=== PATIENT | male | born 1960 | race Caucasian/White ===

== ENCOUNTER 2020-07-08 14:59 | Inpatient (IN) | payer MEDICARE, OTHER ==
[~2020-07-08 14:59] MED LIST: Iopamidol-370 76% 500 ML 1 ML ONE
[2020-07-08 15:41] LABS: #Basophils 0.1 thou/uL (0.0-0.2); #Eosinphils 0.5 thou/uL (0.0-0.7); #Lymphocytes 1.9 thou/uL (1.20-3.40); #Monocytes 0.8 thou/uL (0.11-0.59); #Neutrophils 9.1 thou/uL (1.40-6.50); %Basophils 0.5 % (0.0-1.0); %Lymphocytes 15.6 % (21.0-51.0); %Monocytes 6.7 % (0.0-10.0); %Neutrophils 73.3 % (42.0-75.0); Hemoglobin 14.2 g/dL (14.0-18.0); Mean Corpuscular HGB CONC 33.5 g/dL (32.0-36.0); Mean Corpuscular Hemoglobin 29.5 pg (27.0-31.0); Mean Corpuscular Volume 87.9 fL (78.0-98.0); Mean Platelet Volume 6.3 fL (7.4-10.4); Platelet Count 374 thou/uL (130-400); RBC Distribution Width 13.6 % (11.5-14.5); Red Blood Cell (RBC) Count 4.83 mill/uL (4.70-6.10); White Blood Cell (WBC) Count 12.4 thou/uL (4.8-10.8)
--- NOTE | 2020-07-08 15:53 | RAD ---
EXAM: Single view of the chest HISTORY: Abdominal pain and rib pain COMPARISON: 12/25/2014 FINDINGS: Single view of the chest shows a normal sized cardiomediastinal silhouette. 2 right hilar masses are seen. The largest measures 7.2 cm in size. No pleural effusion is seen. No acute osseous abnormality. IMPRESSION: New right hilar lung masses. A CT of the chest with contrast is recommended for further e valuation.
[2020-07-08 16:01] LABS: ALT (SGPT) 9 U/L (8-55); AST (SGOT) 21 U/L (5-34); Alkaline Phosphatase 103 U/L (40-110); Anion Gap 16 mmol/L (10-20); BUN (Urea Nitrogen) 12 mg/dL (8.4-25.7); Bilirubin, Total 0.2 mg/dL (0.2-1.2); Calc. Creatinine Clearance 0 mL/min (70-130); Calcium 9.3 mg/dL (7.8-10.44); Carbon Dioxide 23 mmol/L (23-31); Chloride 101 mmol/L (98-107); Estimated GFR-MDRD 84; Globulin 3.8 g/dL (2.4-3.5); Glucose 112 mg/dL (80-115); Lipase 745 U/L (8-78); Potassium 3.6 mmol/L (3.5-5.1); Protein, Total 7.8 g/dL (5.8-8.1); Sodium 136 mmol/L (136-145)
[2020-07-08] MEDS ORDERED: Mag-Al 1200 mg/1200 mg/30 ML UDCUP ONE (16:03)
[2020-07-08] MEDS ORDERED: Lidocaine Viscous Sol 2% 15 ml UD Cup ONE (16:03)
[2020-07-08] MEDS ORDERED: Morphine 4 MG/ML VIAL ONE (16:19)
[2020-07-08] MEDS ORDERED: Lorazepam 2 MG/ML VIAL ONE (16:31)
--- NOTE | 2020-07-08 17:51 | CT ---
Exam: Chest CT with contrast Abdomen CT with contrast Pelvic CT with contrast HISTORY: Abdominal pain. Correlation: None COMPARISON: None FINDINGS: Chest CT: Mediastinum: Enlarged precarinal lymph node measuring 2.9 x 3.2 cm, enlarged subcarinal lymph node me asuring 5.5 x 1.8 cm, posterior mediastinal/left paraspinal lymph node measuring 2.6 x 2.4 cm, enlarged right hilar lymph node measuring 2.9 x 4.8 cm. Additional scattered enlarged lymph nodes are noted. Aorta: Normal caliber thoracic aorta. No periaortic fat stranding. There is mild mass effect and narr owing of the proximal descending thoracic aorta due to a forementioned lymphadenopathy. Atherosclerosis and mild luminal narrowing of the infrarenal abdominal aorta. Heart: Normal heart size. No significant pericardial fluid Trachea and central bronchi: Trachea and left main bronchus are patent. There is narrowing of the rig ht central bronchus and main bronchus secondary to a forementioned lymphadenopathy. Pleural spaces: No pleural effusion Right lung: Multiple solid nodules/masses in the right lung. Largest mass is in the superior segment of the right lower lobe 3.1 x 1.4 cm. Additional smaller nodules are also noted in the superior segment of the right lower lobe. There is extension of right hilar lymphadenopathy/mass into the medi al right upper lobe lung parenchyma. There is minimal consolidation in the right upper lobe. Minimal emphysematous change in the right lung apex. Left lung:No suspicious masses or nodules. Minimal emphysematous change in the left lung apex. Pneumothorax: None Abdomen CT: Gallbladder: Unremarkable Portal vein: Patent Liver: Appropriate enhancement. Spleen: Appropriate enhancement Pancreas: Appropriate enhancement Adrenal glands: Enlarged right adrenal gland measuring 1.5 x 2.7 cm. Enlarged left adrenal gland trinh uring 1.9 x 2.5 cm. Lymphadenopathy: No gastrohepatic, retrocrural or periportal lymphadenopathy Kidneys: Symmetric enhancement. No obstructive uropathy. Hypodensities in the left and right renal co rtex compatible with bilateral renal cortical cysts. Mesentery: Scattered nonspecific nonenlarged mesenteric lymph nodes. No free air or free fluid. Alimentary canal: Limited evaluation by the lack of oral contrast. Decompressed stomach. Multiple non distended small bowel loops. Normal ileocecal junction. Normal caliber appendix. Scattered fecal material in a nondistended, nondilated colon. There is diverticulosis. No diverticulitis. Pelvis CT: Limited evaluation of the pelvis due to beam attenuation artifact from a left hip prosthesis. No pelv ic mass, lymphadenopathy, free air or free fluid. Presacral fat is preserved. Osseous structures:No lytic or blastic lesions in the osseous structures. Previous lumbar surgery is identified. IMPRESSION: 1. Extensive lymphadenopathy involving the right hilum and mediastinum. 2. Multiple lung nodules in the right lower lobe. Correlate for primary neoplasm of the lung parenchy ma with metastases to the right hilum and mediastinum. There is abrupt truncation of the right mainstem bronchus and right central bronchus. Consider bronchoscopy for pathologic characterization 3. Bilateral adrenal masses, worrisome for metastases.. Transcribed Date/Time: 07/08/2020 6:03 PM
--- NOTE | 2020-07-08 18:32 | PDOC.HHP ---
Hospitalist HPI - History of Present Illness Abdominal pain x 2 months History of Present Illness: PCP: NONE The patient is a 60-year-old male with a past medical history of duodenal ulcers , peripheral neuropathy and anxiety that presents to the ER via EMS for the above complaint. The patient reports left upper quadrant abdominal pain for the past 2 months. Describes pain as "a hot pancreas", intermittent, exacerbated with oral food intake at times and relieved with laying on his left side with his knees flexed. Denies any known trauma or abdominal surgery. Denies nausea, vomiting, diarrhea and constipation. Denies heart palpitations, shortness of breath. He does not take NSAIDs or steroids chronically. He does not abuse alcohol. Denies any change in color to his stools or urine. EMS was called. Upon arrival, the patient had stable vital signs with normal blood pressure, normal pulse, normal respirations, afebrile. Patient was taken to the ER. ED Course: VITAL SIGNS WedJul 08, 2020 15:02 SHIVAM Seals Tori BP: 132/78, Pulse: 92, Resp: 15, Temp: 98.3 (Oral), Pain: 7, O2 sat: 97 on ( Room Air), Time: 07/08/2020 15:02. VITAL SIGNS WedJul 08, 2020 16:07 SHIVAM Marcum Kassidy BP: 118/75, Pulse: 86, Resp: 20, Temp: 98.4 (Oral), Pain: 7, O2 sat: 99 on ( Room Air), Time: 07/08/2020 16:07. VITAL SIGNS WedJul 08, 2020 17:47 SHIVAM Seals Tori BP: 144/92, Pulse: 87, Resp: 17, O2 sat: 96 on (Room Air), Time: 07/08/2020 17: 47. Lipase 745, with unremarkable LFTs. WBCs 12.4. CT abdomen showed extensive lymphadenopathy to the right hilum and mediastinum, multiple lung nodules to the right lower lobe. Recommend bronchoscopy. Chest x -ray was positive for new right hilar lung mass. Recommend CT chest with contrast. Positive for by lateral adrenal masses, worrisome for metastasis. Right adrenal mass measures 1.5 x 2.7 cm. Left adrenal mass measures 1.9 x 2.5 cm. Medication administration: LORazepam injection 1 mg IV Push Given 16:40 07/08/2020 sodium chloride 0.9 % intravenous 1000 mL IV Fluid Infusion Given 16:31 2019 morphine intravenous 4 mg IV Push Given 16:24 07/08/2020 GI COCKTAIL - WHITE 40 mL Oral Given 16:06 07/08/2020 Hospitalist ROS - Review of Systems Constitutional: denies: fever, chills Respiratory: denies: cough, shortness of breath, hemoptysis, SOB with excertion Cardiovascular: denies: chest pain, palpitations, edema Gastrointestinal: reports: abdominal pain (Left upper quadrant). denies: nausea , vomiting, diarrhea, constipation, melena, hematochezia Genitourinary: denies: dysuria, frequency, hematuria Neurological: denies: weakness, change in speech, confusion All other systems reviewed; all pertinent +/- noted in HPI/Subj - Medication Medications: gabapentin CAPSULE : Strength - 300 mg : ORAL Patient Dose: 300 mg Oral every 8 hours PRN. HYDROcodone-acetaminophen TABLET : Strength - 10 mg-325 mg : ORAL Patient Dose: 10/325 mg Oral every 6 hours PRN. Allergies: NKDA Hospitalist History - Past Medical History Source: patient, RN notes reviewed Other Medical History: MEDICAL HISTORY DUODENAL ULCER. Peripheral neuropathy MALE SURGICAL HISTORY LEFT HIP REPLACEMENT, Surgical history of hernia repair, Surgical history of orthopedic surgery, LEFT KNEE X2, RIGHT SHOULDER, BACK SX L4,L5, S1. NECK FUSION. PSYCHIATRIC HISTORY Psychiatric history includes, anxiety. SOCIAL HISTORY Patient currently uses tobacco, Patient smokes 1/2 packs per day, Patient drinks socially, once a month, Patient denies drug use. Patient lives at home with his mother, near [place], [place]. Ambulates without assistive devices. FAMILY HISTORY: Contributory for cancer, grandmother, noncontributory for cardiac disease. - Exam General Appearance: NAD, awake alert Eye: anicteric sclera ENT: normocephalic atraumatic Neck: supple, symmetric Heart: RRR, no murmur, no gallops, no rubs, normal peripheral pulses Respiratory: CTAB, no wheezes, no ronchi, normal chest expansion, no tachypnea Gastrointestinal: soft, non-distended, normal bowel sounds, no guarding, no rigidity, tender to palpation (Mildly tender) Extremities: no cyanosis, no edema Skin: no rashes Neurological: normal sensation to touch, no weakness, no focal deficits Musculoskeletal: normal tone, normal strength Psychiatric: A&O x 3, flat affect Hospitalist Results - Labs Result Diagrams: 07/09/20 04:56 07/09/20 04:56 Lab results: WBC 12.4 thou/uL (4.8-10.8) H 07/08/20 15:32 Hgb 14.2 g/dL (14.0-18.0) 07/08/20 15:32 Hct 42.4 % (42.0-52.0) 07/08/20 15:32 MCV 87.9 fL (78.0-98.0) 07/08/20 15:32 Plt Count 374 thou/uL (130-400) 07/08/20 15:32 Neutrophils % 73.3 % (42.0-75.0) 07/08/20 15:32 Sodium 136 mmol/L (136-145) 07/08/20 15:32 Potassium 3.6 mmol/L (3.5-5.1) 07/08/20 15:32 Chloride 101 mmol/L (98-107) 07/08/20 15:32 Carbon Dioxide 23 mmol/L (23-31) 07/08/20 15:32 BUN 12 mg/dL (8.4-25.7) 07/08/20 15:32 Creatinine 0.91 mg/dL (0.7-1.3) 07/08/20 15:32 Glucose 112 mg/dL (80-115) 07/08/20 15:32 Calcium 9.3 mg/dL (7.8-10.44) 07/08/20 15:32 Total Bilirubin 0.2 mg/dL (0.2-1.2) 07/08/20 15:32 AST 21 U/L (5-34) 07/08/20 15:32 ALT 9 U/L (8-55) 07/08/20 15:32 Alkaline Phosphatase 103 U/L (40-110) 07/08/20 15:32 Troponin I 0.012 ng/mL (< 0.028) 07/08/20 15:32 Serum Total Protein 7.8 g/dL (5.8-8.1) 07/08/20 15:32 Albumin 4.0 g/dL (3.4-4.8) 07/08/20 15:32 Lipase 745 U/L (8-78) H 07/08/20 15:32 - EKG Interpretation EK lead EKG interpreted by Emergency Department Physician at time of study, 12 lead EKG shows normal sinus rhythm, Rate (beats per minute): 94, with no ectopics, Interpretation:, Conduction with, incomplete right bundle branch block , ST segments normal, T waves normal, [place] normal, Clinical impression:, non- specific EKG. - Radiology Interpretation Chest x-ray Status: report reviewed by me Additional Comment: IMPRESSION: New right hilar lung masses. A CT of the chest with contrast is recommended for further e valuation CT scan - abdomen Status: report reviewed by me Hospitalist H&P A/P - Problem (1) Acute pancreatitis Code(s): K85.90 - ACUTE PANCREATITIS WITHOUT NECROSIS OR INFECTION, UNSP Status: Acute Assessment and Plan: Admit the patient to medical floor, inpatient status. Expected length of stay greater than 2 midnights.Patient presented normal blood pressure, normal pulse, normal respirations, afebrile. Chest x-ray positive for new right hilar lung mass. CT chest/abdomen/pelvis showed extensive lymphadenopathy involving the right hilum and mediastinum. Multiple lung nodules in the right lower lobe. Correlate for primary neoplasm of the lung parenchyma with metastasis to the right lung hilum and mediastinum. Bilateral adrenal masses, worrisome for metastasis. Recommend bronchoscopy for pathological characterization. Lipase 745, unremarkable LFTs. CBC 12.4. UA unremarkable. Patient received 1 L normal saline, GI cocktail, morphine and Ativan in ER. Will continue IV fluid resuscitation. No concern for pancreatic necrosis or abscess. Will leave n.p.o., consult GI. Repeat labs in the a.m and get fasting lipid profile. Check right upper quadrant abdominal ultrasound for obstruction. Continue as needed Zofran, morphine. Start Protonix IV push daily. (2) Mass of right lung Code(s): R91.8 - OTHER NONSPECIFIC ABNORMAL FINDING OF LUNG FIELD Status: Acute Assessment and Plan: Patient is aware of CT scanning and chest x-ray findings. Discussed n.p.o. status. Discussed consultation of pulmonology for possible bronchoscopy tomorrow. (3) Tobacco abuse Code(s): Z72.0 - TOBACCO USE Status: Chronic Assessment and Plan: Patient reports half pack per day history. Unwilling to quit. NRT therapy. Air Defence Officer on tobacco cessation. (4) Peripheral neuropathy Code(s): G62.9 - POLYNEUROPATHY, UNSPECIFIED Status: Chronic Assessment and Plan: Takes gabapentin at home. Will restart patient's home medication. - Plan Plan: Consult physical therapy. Protonix for GI prophylaxis. SCDs for DVT prophylaxis Full code. Discussed case with Dr. Santizo.
[2020-07-08] MEDS ORDERED: Ondansetron PF 4 MG/2 ML Vial IVP PRN (18:57)
[2020-07-08] MEDS ORDERED: Acetaminophen 325 MG TAB PO PRN (18:57)
[2020-07-08] MEDS ORDERED: Senokot S 8.6-50 MG TAB PO PRN (18:57)
[2020-07-08] MEDS ORDERED: Acetaminophen 650 MG Suppository PR PRN (18:57)
[2020-07-08 20:41] LABS: Bacteria/HPF None Seen HPF (None Seen); Bilirubin Negative (Negative); Blood, Urine Negative (Negative); Clarity Clear (Clear); Glucose, Urine (Dipstick) Normal (Negative); Ketone, Urine 10 mg/dL (Negative); Leukocyte Negative Leu/uL (Negative); Nitrite Negative (Negative); Protein, Urine (Dipstick) Negative (Neg-Trace); RBC/HPF 0-3 HPF (0-3); Squamous Epithelial None Seen HPF (0-3); Urobilinogen Normal mg/dL (Less than 2); WBC/HPF 0-3 HPF (0-3); pH, Urine 7.5 (5.0-9.0)
[2020-07-08 20:43] LABS: Specific Gravity, Urine 1.046 (1.002-1.036)
[2020-07-08] MEDS: Morphine 4 MG/ML VIAL SLOW IVP PRN (20:57)
[2020-07-08] MEDS: Pantoprazole 40 MG VIAL IVP SCH (20:59)
[2020-07-08] MEDS: Sodium Chloride 0.9% 1,000 ML IV SCH (20:59)
[2020-07-08] MEDS: Nicotine 14 MG PATCH TD SCH (21:02)
[2020-07-08 21:11] VITALS: BMI 20.7
[2020-07-08] MEDS ORDERED: Fentanyl 100 MCG/2 ML VIAL SLOW IVP PRN (23:53)
[2020-07-09] MEDS: Morphine 4 MG/ML VIAL SLOW IVP PRN ×2 (00:45→05:29)
[2020-07-09] MEDS: Sodium Chloride 0.9% 1,000 ML IV SCH ×3 (03:51→17:04)
[2020-07-09] MEDS ORDERED: Morphine 4 MG/ML VIAL SLOW IVP SCH (04:15)
[2020-07-09 05:18] LABS: #Basophils 0.1 thou/uL (0.0-0.2); #Eosinphils 0.4 thou/uL (0.0-0.7); #Monocytes 0.8 thou/uL (0.11-0.59); #Neutrophils 6.7 thou/uL (1.40-6.50); %Basophils 0.5 % (0.0-1.0); %Eosinophils 3.5 % (0.0-10.0); %Lymphocytes 27.1 % (21.0-51.0); %Monocytes 7.7 % (0.0-10.0); %Neutrophils 61.2 % (42.0-75.0); Hemoglobin 12.7 g/dL (14.0-18.0); Mean Corpuscular HGB CONC 33.2 g/dL (32.0-36.0); Mean Corpuscular Volume 87.3 fL (78.0-98.0); Mean Platelet Volume 6.5 fL (7.4-10.4); Platelet Count 345 thou/uL (130-400); RBC Distribution Width 13.8 % (11.5-14.5); Red Blood Cell (RBC) Count 4.38 mill/uL (4.70-6.10); White Blood Cell (WBC) Count 10.9 thou/uL (4.8-10.8)
[2020-07-09] MEDS: Ondansetron ODT 4 MG TAB PO PRN (05:35)
[2020-07-09 05:43] LABS: ALT (SGPT) 7 U/L (8-55); AST (SGOT) 19 U/L (5-34); Albumin 3.4 g/dL (3.4-4.8); Alkaline Phosphatase 86 U/L (40-110); Anion Gap 15 mmol/L (10-20); BUN (Urea Nitrogen) 10 mg/dL (8.4-25.7); Bilirubin, Total 0.3 mg/dL (0.2-1.2); Calc. Creatinine Clearance 96 mL/min (70-130); Calcium 8.3 mg/dL (7.8-10.44); Carbon Dioxide 18 mmol/L (23-31); Cardiac Risk 7.2 (Less than 4.5); Chloride 106 mmol/L (98-107); Cholesterol 224 mg/dl (< 200 Desired); Estimated GFR-MDRD Greater than 90; Globulin 3.2 g/dL (2.4-3.5); Glucose 87 mg/dL (80-115); HDL Cholesterol 31 mg/dL (>60 Neg Risk); LDL Cholesterol, Calculated 176 mg/dL; Lipase 630 U/L (8-78); Potassium 3.7 mmol/L (3.5-5.1); Protein, Total 6.6 g/dL (5.8-8.1); Sodium 135 mmol/L (136-145); Triglycerides 87 mg/dL (Less than 150)
--- NOTE | 2020-07-09 07:49 | ULT ---
ULTRASOUND ABDOMEN LIMITED: (RIGHT UPPER QUADRANT) DATE: 07/09/2020 HISTORY: 60-year-old male with "acute pancreatitis" FINDINGS: Gallbladder:Distended. No gallstones identified. No mural thickening. No pericholecystic fluid. Common duct: 7 mm. Liver:Normal size and echogenicity. Pancreas:Approximately 3 x 2 x 2 cm moderately hypoechoic solid mass at proximal pancreatic body/neck . No pancreatic ductal dilation. Right kidney:No hydronephrosis. 2 cm cortical cyst. Right adrenal: 4 x 2 x 2.5 cm solid mass. IMPRESSION: 1) small solid pancreatic mass suspicious for pancreatic neoplasm. 2) right adrenal mass.
[2020-07-09] MEDS: Fentanyl 100 MCG/2 ML VIAL SLOW IVP SCH ×2 (09:11→09:44)
[2020-07-09] MEDS ORDERED: Fentanyl 100 MCG/2 ML VIAL SLOW IVP PRN (09:28)
[2020-07-09] MEDS: Promethazine HCl 25 MG in Sodium Chloride 0.9% 50 ML IVPB PRN (10:04)
[2020-07-09] MEDS ORDERED: diphenhydrAMINE 25 MG CAP PO PRN (10:19)
[2020-07-09] MEDS ORDERED: Promethazine HCl 25 MG/ML VIAL IM PRN (10:19)
[2020-07-09] MEDS ORDERED: Zolpidem Tartrate 5 MG TAB PO PRN (10:19)
[2020-07-09] MEDS ORDERED: diphenhydrAMINE 50 MG/ML VIAL IM/IV PRN (10:19)
[2020-07-09] MEDS ORDERED: Lidocaine 4% PF 5 ML AMP NEB SCH (10:30)
[2020-07-09] MEDS ORDERED: Fentanyl 100 MCG/2 ML VIAL SLOW IVP SCH (10:30)
--- NOTE | 2020-07-09 11:11 | CON ---
DATE OF CONSULTATION: 07/09/2020 CONSULTING PHYSICIAN: [facility]. REASON FOR CONSULTATION: Lung mass. HISTORY OF PRESENT ILLNESS: Mr. Nunez was in pain and did not want to cooperate with any type of history. What I have is obtained from reading the chart. He is 60 years old, presented to the emergency room last night with abdominal pain. It has been present for the last two months. He has a grossly elevated lipase above 600. He is currently being treated for pancreatitis. He has a mass in the head of the pancreas. Additionally, he has a lung mass, extensive hilar and mediastinal lymphadenopathy, periaortic lymphadenopathy, and bilateral adrenal metastasis. PAST MEDICAL HISTORY: No previous history of cancer. Does have history of peptic ulcer disease and peripheral neuropathy. PAST SURGICAL HISTORY: He had a left hip replacement, hernia repair, left knee surgery, right shoulder surgery, back surgery, and L4, L5, S1 fusion. PSYCHIATRIC HISTORY: Remarkable for anxiety. SOCIAL HISTORY: Most of his life, he has smoked one pack per day. He has been trying to cut back. He is down to about a half pack per day. Does not use illicit drugs. He lives in [place]. 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 FAMILY MEDICAL HISTORY: Remarkable for cancer in his grandmother. REVIEW OF SYSTEMS: He has had some weight loss. He has had extensive abdominal pain. No fever, chills, hemoptysis, hematemesis, melena, hematochezia, hematuria, or dysuria. PHYSICAL EXAMINATION: VITAL SIGNS: Temperature 98.1, pulse 92, respirations 17, O2 saturations 98% on room air, and blood pressure 126/62. GENERAL: He appears in severe pain. He is writhing about the bed. HEENT: Pupils reactive. Sclerae anicteric. Oropharynx clear. NECK: No adenopathy or JVD. LUNGS: Decreased air entry on the right. Clear on the left. ABDOMEN: Some mid epigastric tenderness on deep palpation. EXTREMITIES: No clubbing, cyanosis, or edema. LABORATORY DATA: Sodium 135, potassium 3.7, chloride 106, CO2 of 18, BUN 10, creatinine 0.7, and glucose 87. Cholesterol level 224. Lipase 630. White blood cell count 10.9, hematocrit 38.2, and platelet count 345. I reviewed a CT in detail. He has a circumferential mass in the right hilum region, which may be invading the right mainstem bronchus area. He has subcarinal, right paratracheal, and periaortic lymphadenopathy. ASSESSMENT: 1. Pancreatic mass, likely cancerous-not sure primary or metastatic. 2. Extensive tumor burden in lungs-primary lung cancer versus metastatic pancreatic cancer. 3. Adrenal metastasis. 4. Pancreatitis. RECOMMENDATION: He will need a bronchoscopy at some point. However, his pain is so severe. I do not think that I can put him through a procedure at this time. I have tentatively scheduled him for Wednesday, which was the earliest I could get him on. The pain service has been consulted to deal with his pain issues. In all likelihood, this is stage IV cancer, and his prognosis is very poor. COVID test has been sent, which will need to come back negative before he is allowed to go to the operating room. Job ID: [id number]
[2020-07-09 12:31] LABS: SARS-CoV-2 MS2 Positive; SARS-CoV-2 N Gene Negative; SARS-CoV-2 S Gene Negative; SARS-CoV-2 by NAA Not Detected (NotDetected); SARS-CoV-2 orf1ab Negative
[2020-07-09] MEDS: fentaNYL Citrate/PF 2,000 MCG in Sodium Chloride 0.9% 60 ML IV PRN (12:38)
[2020-07-09] MEDS ORDERED: Magnevist 469MG/ML 20 ML VIAL ONE (13:35)
[2020-07-09] MEDS: Ketorolac Tromethamine 30 MG/ML VIAL IVP SCH ×2 (14:26→19:37)
[2020-07-09] MEDS ORDERED: Naloxone HCl 0.4 mg/ml Vial IV PRN (14:46)
--- NOTE | 2020-07-09 18:56 | PDOC.HOSPP ---
- Subjective Encounter Date: 07/09/20 Encounter Time: 09:00 Subjective: Patient seen and examined for abdominal pain with elevated lipase. Pain uncontrolled -08/17. Mild nausea without any vomiting. No fever reported. - Objective Vital Signs & Weight: Vital Signs (12 hours) Temp Pulse Resp BP Pulse Ox 07/09/20 17:25 98.3 F 81 20 134/75 97 07/09/20 11:53 97.8 F 89 18 142/79 H 97 07/09/20 09:00 92 126/62 98 Weight Admit Weight 144 lb 8 oz Weight 144 lb 8 oz Result Diagrams: 07/09/20 04:56 07/09/20 04:56 Radiology Reviewed by me: Yes (CTextensive lymphadenopathy) Hospitalist ROS - Review of Systems Respiratory: denies: cough, dry, shortness of breath, hemoptysis, SOB with excertion, pleuritic pain, sputum, wheezing, other Cardiovascular: denies: chest pain, palpitations, orthopnea, paroxysmal noc. dyspnea, edema, light headedness, other - Medication Medications: Active Medications Generic Name Dose Route Start Last Admin Trade Name Freq PRN Reason Stop Dose Admin Sodium Chloride 1,000 mls @ 150 mls/hr 07/08/20 19:00 07/09/20 17:04 Normal Saline 0.9% IV Not Given .Q6H40M DEVANTE Promethazine HCl 25 mg/ Sodium 51 mls @ 102 mls/hr 07/09/20 08:28 07/09/20 10 :04 Chloride IVPB 51 mls Q6H PRN Administration Nausea Fentanyl Citrate 2,000 mcg/ 100 mls @ 0 mls/hr 07/09/20 10:19 07/09/20 12:38 Sodium Chloride IV 100 mls INF PRN Administration Pain As Directed Ketorolac Tromethamine 30 mg 07/09/20 12:00 07/09/20 14:26 Toradol IVP 07/11/20 06:01 30 mg Q6HR DEVANTE Administration Nicotine 14 mg 07/08/20 21:00 07/08/20 21:02 Nicoderm Patch TD 14 mg Q24HR DEVANTE Administration Ondansetron HCl 4 mg 07/08/20 18:57 07/09/20 05:35 Zofran Odt PO 4 mg Q6H PRN Administration Nausea/Vomiting Pantoprazole Sodium 40 mg 07/08/20 21:00 07/08/20 20:59 Protonix IVP 40 mg HS DEVANTE Administration - Exam General Appearance: ill appearing Neck: supple, no JVD Heart: RRR, no gallops, no rubs, normal peripheral pulses Respiratory: no wheezes, no rales, no ronchi, normal chest expansion Gastrointestinal: soft, no guarding, no rigidity, tender to palpation ( Generalized), voluntary guarding Extremities: no cyanosis, no clubbing, no edema Extremities - other findings: No calf tenderness Neurological: no new deficit Psychiatric: normal affect, A&O x 3 Hosp A/P - Plan DVT proph w/SCDs Abdominal pain with elevated lipase/acute pancreatitis Lung nodules with extensive lymphadenopathy Bilateral adrenal masses ? Metastasis Ongoing tobacco abuse Dehydration Hyponatremia Chronic pain syndrome Plan: Pain is uncontrolled despite morphine 4 mg every 4 hourly. 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 Change IV fluid to D5 with potassium. Recheck labs including lipase in a.m. Await GI and pulmonary input. N.p.o. Right upper quadrant ultrasound noted.
[2020-07-09] MEDS: D5 1/2 NS w/20 mEq KCL 1,000 ML IV SCH (19:41)
[2020-07-09] MEDS: Pantoprazole 40 MG VIAL IVP SCH (20:23)
[2020-07-09] MEDS: Nicotine 14 MG PATCH TD SCH (20:23)
[2020-07-09] MEDS: Ondansetron PF 4 MG/2 ML Vial IVP PRN (22:56)
--- NOTE | 2020-07-09 23:30 | CON ---
DATE OF CONSULTATION: 07/09/2020 REASON: Abdominal pain, abnormal CT. HISTORY OF PRESENT ILLNESS: Mr. Nunez is a 60-year-old male, who presented to the ER with chief complaint of abdominal pain. It was difficult to obtain a straight history from the patient as he primarily requesting more pain medication and could not focus on much of anything else. Reportedly, he complains having two month history of intermittent abdominal pain that has become much worse three days prior to admission. The pain is diffuse but mostly in the upper abdominal area. He did report having some nausea but without any actual vomiting. There is no change in bowel function. He reports losing approximately 5 pounds over the last 2 weeks, although he continues to eat fairly normally at home up until three days ago. He denies any fever or chills. There is no jaundice or dark urine. On admission, CT performed showed a fairly extensive adenopathy in the right hilum and mediastinum in addition to multiple lung nodules. His CT of the abdomen did not show any inflammatory change of the pancreas. However, ultrasound performed showed focal mass lesion in the pancreas. His lipase was elevated to 700 in the emergency room. He denies any significant alcohol intake. He denies having had previous pancreatitis. No family history of pancreatitis. PAST MEDICAL HISTORY: 1. Chronic pain syndrome on chronic pain medication. 2. Chronic back pain. 3. Status post multilevel back fusions. 4. Status post right shoulder surgery and left hip replacement. 5. Neuropathy. MEDICATIONS: At home include: 1. Gabapentin. 2. Hydrocodone/Tylenol. ALLERGIES: NONE. SOCIAL HISTORY: The patient does smoke a pack a day. He rarely drinks alcohol. Denies any illicit drug use. The patient lives in [place]. FAMILY HISTORY: Negative for any known GI problem, liver disease, or GI malignancy. REVIEW OF SYSTEMS: Ten-point review of systems did not show any other pertinent positives or negatives. PHYSICAL EXAMINATION: VITAL SIGNS: Temperature is 97.8, blood pressure 142/79, pulse of 89. GENERAL: He is alert, in no apparent distress. HEENT: Exam shows anicteric sclerae. Oropharynx is clear. NECK: Supple. No adenopathy. CV: Shows normal S1, S2. Regular rate and rhythm. CHEST: Shows breath sounds. ABDOMEN: Soft. No appreciable tenderness to deep palpation. No tympany. No distention. He has active bowel sounds. EXTREMITIES: Shows no edema. LABORATORY DATA: WBC is 10.9, hemoglobin 12.7, platelet count of 345. Electrolytes within normal range. Bilirubin 0.3, AST 19, ALT 7, alkaline phosphatase 86, lipase 745 yesterday, 630 today. Triglyceride is 87. COVID-19 PCR is negative. Chest, abdominal, and pelvic CT performed yesterday showed extensive adenopathy involving the mediastinum and right hilum and multiple lung nodules in the right lobe. He also has bilateral adrenal masses. Pancreas appeared normal. Abdominal ultrasound showed a 3 x 2 cm hypoechoic mass lesion in the proximal pancreas. Gallbladder is distended without gallstone. Common bile duct measures . ASSESSMENT: A 60-year-old male presents primarily with upper abdominal pain over the last two months that has worsened in the last 3 to 4 days. Lipase was elevated to over 700 on admission, but CT did not show any findings of pancreatitis. However, he does have a solid lesion suggested on abdominal ultrasound. Pancreatic neoplasm needs to be excluded. In relation to his extensive hilar adenopathy, mediastinal adenopathy and multiple right lung nodules, he could also have a primary lung malignancy although metastatic pancreatic cancer is a remote possibility. RECOMMENDATIONS: 1. From GI standpoint, we will order MRI to define the pancreatic lesion and to assess for any inflammatory changes. 2. Will keep n.p.o. for now. 3. Continue pain control with FOREPART ROUNDER pump. 4. Further recommendation to follow pending above findings. Job ID: [id number]
[2020-07-10] MEDS: Ketorolac Tromethamine 30 MG/ML VIAL IVP SCH ×5 (00:57→23:34)
[2020-07-10] MEDS: D5 1/2 NS w/20 mEq KCL 1,000 ML IV SCH ×3 (03:57→21:01)
[2020-07-10] MEDS: fentaNYL Citrate/PF 2,000 MCG in Sodium Chloride 0.9% 60 ML IV PRN (05:20)
[2020-07-10] MEDS: Ondansetron ODT 4 MG TAB PO PRN (05:56)
[2020-07-10 06:20] LABS: #Eosinphils 0.4 thou/uL (0.0-0.7); #Lymphocytes 2.6 thou/uL (1.20-3.40); #Monocytes 0.7 thou/uL (0.11-0.59); #Neutrophils 3.6 thou/uL (1.40-6.50); %Basophils 0.3 % (0.0-1.0); %Eosinophils 5.1 % (0.0-10.0); %Lymphocytes 35.9 % (21.0-51.0); %Monocytes 9.2 % (0.0-10.0); %Neutrophils 49.5 % (42.0-75.0); Hemoglobin 12.1 g/dL (14.0-18.0); Mean Corpuscular HGB CONC 33.6 g/dL (32.0-36.0); Mean Corpuscular Hemoglobin 29.8 pg (27.0-31.0); Mean Corpuscular Volume 88.9 fL (78.0-98.0); Mean Platelet Volume 6.5 fL (7.4-10.4); Platelet Count 313 thou/uL (130-400); RBC Distribution Width 13.8 % (11.5-14.5); Red Blood Cell (RBC) Count 4.04 mill/uL (4.70-6.10); White Blood Cell (WBC) Count 7.3 thou/uL (4.8-10.8)
[2020-07-10 06:43] LABS: ALT (SGPT) Less than 7 U/L (8-55); AST (SGOT) 20 U/L (5-34); Albumin 3.2 g/dL (3.4-4.8); Alkaline Phosphatase 82 U/L (40-110); Anion Gap 11 mmol/L (10-20); BUN (Urea Nitrogen) 11 mg/dL (8.4-25.7); Bilirubin, Total 0.2 mg/dL (0.2-1.2); Calc. Creatinine Clearance 93 mL/min (70-130); Calcium 8.2 mg/dL (7.8-10.44); Carbon Dioxide 21 mmol/L (23-31); Chloride 105 mmol/L (98-107); Estimated GFR-MDRD Greater than 90; Glucose 101 mg/dL (80-115); Lipase 270 U/L (8-78); Magnesium 2.1 mg/dL (1.6-2.6); Potassium 4.2 mmol/L (3.5-5.1); Protein, Total 6.2 g/dL (5.8-8.1); Sodium 133 mmol/L (136-145)
--- NOTE | 2020-07-10 09:34 | PRG ---
DATE OF SERVICE: 07/10/2020 SUBJECTIVE: The patient is doing better in terms of pain relief. He says the [employer]ION ORGANISER pump is helped. He is scheduled for an MRI of his abdomen later today to further evaluate his pancreatic lesion. OBJECTIVE: VITAL SIGNS: His temperature 98.5, pulse 56, respirations 16, O2 saturation 97%, blood pressure 121/72. HEENT: Unremarkable. NECK: No adenopathy or JVD. LUNGS: Clear. CARDIAC: S1 and S2, regular. ABDOMEN: Somewhat tender to palpation in the mid epigastric region. EXTREMITIES: No clubbing, cyanosis, or edema. LABORATORY DATA: Sodium 133, potassium 4.2, chloride 105, CO2 of 21, BUN 11, creatinine 0.7, glucose 101. White blood cell count 7.3, hematocrit 35.9, and platelet count 313. ASSESSMENT: Metastatic cancer-primary source undetermined. Lung versus pancreas. PLAN: Tentatively scheduled for bronchoscopy Wednesday. Discussed the procedure with the patient today. I included the risks and benefits. He agreed to proceed. Job ID: [id number]
--- NOTE | 2020-07-10 11:33 | MRI ---
MRI ABDOMEN WITH AND WITHOUT CONTRAST: HISTORY: Pancreatic mass. COMPARISON: CT 07/08/2020. FINDINGS: At the pancreatic body-tail junction is a poorly enhancing mass measuring 1.9 cm in size which extend s outside the dorsal aspect of the parenchyma abutting the splenic/portal venous confluence. This [place] s no involvement of the superior mesenteric artery or celiac trunk. There is only mild extrinsic mas s effect without definite base in the splenic vein/portal venous confluence. There is mild atrophy o f the pancreatic tail distal to this with mildly enlarged main pancreatic duct of 3-4 mm. At the ventral aspect of the pancreatic head separate from the common bile duct is a poorly enhancing 11 mm mass which is contained within the pancreatic parenchyma. Small aortocaval lymph node measures 8 mm in short axis. Abnormal bilateral adrenal masses concernin g for metastatic disease. Simple cysts superior pole left kidney and interpolar right kidney. Extensive atherosclerotic plaque of the aorta with possible high-grade narrowing/occlusion of the rig ht common iliac arteries with distal reconstitution. The spleen is unremarkable. No abnormal enhanc ing hepatic mass, although the entirety of the hepatic parenchyma is not interrogated on this pancrea tic protocol exam. No hydronephrosis. IMPRESSION: 1. Two separate pancreatic masses, the 1st of the pancreatic body extending outside the dorsal aspec t of the pancreatic parenchymal abutting and mild extrinsic mass effect upon the splenic venous/andreas l confluence without definite invasion appreciated. This mass measures up to 1.8 cm in size with mil d atrophy of the pancreatic tail with low-grade dilatation of the distal pancreatic duct. The second is a ventral mass which is contained within the pancreatic parenchyma measuring up to 11 mm. 2. Bilateral adrenal metastatic disease. 3. Mildly prominent aortocaval lymph nodes, although measures 8 mm in short axis. POS: AH
--- NOTE | 2020-07-10 18:19 | PRG ---
DATE OF SERVICE: 07/10/2020 SUBJECTIVE: Mr. Nunez states his belly feels a better. He is still on a [employer] pump that he has chronic back pain. He has had no bowel movement. He has had no vomiting. Pulmonary plans on bronchoscopy on Wednesday. MRCP showed 2 separate pancreatic lesions, extending outside the dorsal aspect of the pancreas parenchyma, abutting with some mass effect in the splenic venous portal confluence without definite invasion, 7.8 cm in size with pancreatic atrophy in the tail proximal to this and dilation of the duct in that area. There is also a ventral mass, 11 mm. There are also a large portacaval nodes. An ultrasound yesterday showed a right adrenal mass as well. PHYSICAL EXAMINATION: VITAL SIGNS: Temperature is 97, pulse 79, blood pressure is 153/73. In's and out's: It is noted he has been voiding all day along. LUNGS: Clear. HEART: regular rate and rhythm without clicks or murmurs. ABDOMEN: Nontender. No palpable supra and umbilical nodes were noted. The abdomen is scaphoid. I do not palpate a signifcantly enlarged spleen or abdominal masses or inguinal nodes. LABORATORY DATA: White count 7.3 and hemoglobin is 12.1. Sodium 133, potassium 4.2, BUN and creatinine 11 and 0.76, albumin 3.3, protein 6.2, and lipase 270. ASSESSMENT: 1. Multiple masses in the chest with severe hilar adenopathy. There is a mass in the kidney and there are 2 little masses in the pancreas. Although the primary could be any of these, it would be odd to see such bulky adenopathy in the chest from the pancreatic lesion as small as the one noted. I would favor this as a primary lung or primary renal with 2 separate lesions in the pancreas one wonders about renal primary as this can metastasize to the pancreas at times, although the biggest nodes are in the chest. I agree with the plan for the bronchoscopy. Hopefully this can lead us to a diagnosis and if not that may be biopsy of the renal lesion or hilar masses. The pancreas lesions would be the most difficult to biopsy as we do not have the technology here at this facility to do that, in which the smallest of the masses is encountered. We will follow along with you. 2. With regard to pancreatitis, it seems to be improving. We will start a full liquid diet. Job ID: [id number]
--- NOTE | 2020-07-10 19:45 | PDOC.HOSPP ---
- Subjective Encounter Date: 07/10/20 Encounter Time: 12:00 Subjective: Patient seen and examined for acute pancreatitis with suspected malignancy. Abdominal pain improving. Pain control with TEST CENTER ADMINISTRATOR. Mild nausea. Denies any other complaints. - Objective Vital Signs & Weight: Vital Signs (12 hours) Temp Pulse Resp BP Pulse Ox 07/10/20 16:12 97.9 F 97 18 120/80 93 L 07/10/20 15:55 98.5 F 67 16 153/73 H 98 07/10/20 11:17 97.9 F 62 16 132/75 97 Weight Admit Weight 144 lb 8 oz Weight 144 lb 8 oz I&O: 07/09/20 07/10/20 07/11/20 06:59 06:59 06:59 Intake Total 1500 Balance 1500 Result Diagrams: 07/10/20 05:28 07/10/20 05:28 Additional Labs: Laboratory Tests 07/08/20 07/09/20 07/10/20 20:20 04:56 05:28 Lipase 630 H 270 H COVID-19 PCR Not Detected Hospitalist ROS - Review of Systems Respiratory: denies: cough, dry, shortness of breath, hemoptysis, SOB with excertion, pleuritic pain, sputum, wheezing, other Cardiovascular: denies: chest pain, palpitations, orthopnea, paroxysmal noc. dyspnea, edema, light headedness, other - Medication Medications: Active Medications Generic Name Dose Route Start Last Admin Trade Name Freq PRN Reason Stop Dose Admin Promethazine HCl 25 mg/ Sodium 51 mls @ 102 mls/hr 07/09/20 08:28 07/09/20 10 :04 Chloride IVPB 51 mls Q6H PRN Administration Nausea Fentanyl Citrate 2,000 mcg/ 100 mls @ 0 mls/hr 07/09/20 10:19 07/10/20 05:20 Sodium Chloride IV 100 mls INF PRN Administration Pain As Directed Potassium Chloride/Dextrose/Sod Cl 1,000 mls @ 125 mls/hr 07/09/20 19:30 12/28 13:07 D5 1/2 Ns W/20 Meq Kcl IV 1,000 mls .Q8H DEVANTE Administration Ketorolac Tromethamine 30 mg 07/09/20 12:00 07/10/20 18:44 Toradol IVP 07/11/20 06:01 30 mg Q6HR DEVANTE Administration Nicotine 14 mg 07/08/20 21:00 07/09/20 20:23 Nicoderm Patch TD 14 mg Q24HR DEVANTE Administration Ondansetron HCl 4 mg 07/08/20 18:57 07/10/20 05:56 Zofran Odt PO 4 mg Q6H PRN Administration Nausea/Vomiting Ondansetron HCl 4 mg 07/09/20 10:19 07/09/20 22:56 Zofran IVP 4 mg Q6H PRN Administration Nausea/Vomiting Pantoprazole Sodium 40 mg 07/08/20 21:00 07/09/20 20:23 Protonix IVP 40 mg HS DEVANTE Administration - Exam General Appearance: NAD Neck: supple, no JVD Heart: RRR, no gallops Respiratory: no wheezes, no ronchi Gastrointestinal: soft, non-distended, no guarding, no rigidity, tender to palpation (Generalized) Extremities: no cyanosis Psychiatric: normal affect, A&O x 3 Hosp A/P - Plan DVT proph w/lovenox, DVT proph w/SCDs Abdominal pain with elevated lipase/acute pancreatitis Lung nodules with extensive lymphadenopathy Bilateral adrenal masses ? Metastasis Ongoing tobacco abuse Dehydration Hyponatremia Chronic pain syndrome Plan: 07/10 Continue TEST CENTER ADMINISTRATOR for pain control. Continue IV fluid with dextrose. Clear liquid diet. Lipase improving. Recheck labs in a.m. Bronchoscopy planned for Wednesday. Change PPI to po. Continue other medications as above. 07/09 Pain is uncontrolled despite morphine 4 mg every 4 hourly. We will start him on fentanyl TEST CENTER ADMINISTRATOR. Change IV fluid to D5 with potassium. Recheck labs including lipase in a.m. Await GI and pulmonary input. N.p.o. Right upper quadrant ultrasound noted.
[2020-07-10] MEDS ORDERED: Enoxaparin Sodium 40 MG/0.4 ML SYRINGE SC SCH (21:00)
[2020-07-10] MEDS: Nicotine 14 MG PATCH TD SCH (21:04)
[2020-07-11] MEDS: fentaNYL Citrate/PF 2,000 MCG in Sodium Chloride 0.9% 60 ML IV PRN ×2 (02:07→21:58)
[2020-07-11] MEDS: D5 1/2 NS w/20 mEq KCL 1,000 ML IV SCH (04:57)
[2020-07-11] MEDS: Ketorolac Tromethamine 30 MG/ML VIAL IVP SCH (05:03)
[2020-07-11 06:07] LABS: #Basophils 0.1 thou/uL (0.0-0.2); #Eosinphils 0.4 thou/uL (0.0-0.7); #Lymphocytes 2.2 thou/uL (1.20-3.40); #Monocytes 0.6 thou/uL (0.11-0.59); #Neutrophils 4.1 thou/uL (1.40-6.50); %Basophils 0.8 % (0.0-1.0); %Eosinophils 4.9 % (0.0-10.0); %Monocytes 8.7 % (0.0-10.0); %Neutrophils 55.6 % (42.0-75.0); Hemoglobin 12.2 g/dL (14.0-18.0); Mean Corpuscular HGB CONC 33.1 g/dL (32.0-36.0); Mean Corpuscular Hemoglobin 29.7 pg (27.0-31.0); Mean Corpuscular Volume 89.8 fL (78.0-98.0); Mean Platelet Volume 6.4 fL (7.4-10.4); Platelet Count 293 thou/uL (130-400); RBC Distribution Width 13.6 % (11.5-14.5); Red Blood Cell (RBC) Count 4.11 mill/uL (4.70-6.10); White Blood Cell (WBC) Count 7.4 thou/uL (4.8-10.8)
[2020-07-11 06:25] LABS: ALT (SGPT) 7 U/L (8-55); AST (SGOT) 19 U/L (5-34); Albumin 3.4 g/dL (3.4-4.8); Alkaline Phosphatase 77 U/L (40-110); Anion Gap 10 mmol/L (10-20); BUN (Urea Nitrogen) 6 mg/dL (8.4-25.7); Bilirubin, Total 0.2 mg/dL (0.2-1.2); Calc. Creatinine Clearance 100 mL/min (70-130); Calcium 8.2 mg/dL (7.8-10.44); Carbon Dioxide 23 mmol/L (23-31); Chloride 106 mmol/L (98-107); Estimated GFR-MDRD Greater than 90; Glucose 105 mg/dL (80-115); Lipase 491 U/L (8-78); Protein, Total 6.4 g/dL (5.8-8.1); Sodium 135 mmol/L (136-145)
[2020-07-11] MEDS ORDERED: Potassium Phosphate 15 MMOL in Sodium Chloride 0.9% 250 ML 250 ML IVPB SCH (07:00)
[2020-07-11] MEDS ORDERED: D5W-AA 4.25% with LYTES 1,000 ML BAG IV SCH (08:15)
[2020-07-11] MEDS: Pantoprazole 40 MG VIAL IVP SCH (08:37)
--- NOTE | 2020-07-11 09:22 | PRG ---
DATE OF SERVICE: 07/11/2020 SUBJECTIVE: The patient is doing okay except when tries to the eat and he develops abdominal pain. OBJECTIVE: VITAL SIGNS: On exam, temperature 98.3, pulse is 70, respirations 17, O2 saturation 98%, and blood pressure 137/68. HEENT: Unremarkable. NECK: No adenopathy or JVD. LUNGS: Decreased air entry on the right. CARDIOVASCULAR: S1 and S2. Regular. ABDOMEN: Soft. EXTREMITIES: No edema. LABORATORY DATA: White blood cell count 7.4, hematocrit 36.9, and platelet count 293. Sodium 135, potassium 4, BUN 6, creatinine 0.7, and glucose 105. Lipase 491. ASSESSMENT: 1. Pancreatitis. 2. 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 PLAN: Bronchoscopy tomorrow. I have discussed informed consent issues with the patient and he agrees to proceed. Job ID: [id number]
[2020-07-11] MEDS: AA 4.25 %/CALCIUM/LYTES/D5W (PPN) 2,000 ML BAG IV SCH (10:09)
[2020-07-11] MEDS: Ondansetron PF 4 MG/2 ML Vial IVP PRN ×2 (14:42→20:42)
--- NOTE | 2020-07-11 15:07 | PDOC.HOSPP ---
- Subjective Encounter Date: 07/11/20 Encounter Time: 07:45 Subjective: Patient seen and examined for abdominal pain with lung mass. Unable to tolerate clear liquid diet. Pain control with HEALTH ADMINISTRATION TEACHER. Mild nausea. - Objective Vital Signs & Weight: Vital Signs (12 hours) Temp Pulse Resp BP BP Pulse Ox 07/11/20 08:00 98 07/11/20 07:04 98.3 F 70 17 137/68 98 07/11/20 04:00 98.5 F 67 18 144/70 H 99 Weight Admit Weight 144 lb 8 oz Weight 144 lb 8 oz I&O: 07/10/20 07/11/20 07/12/20 06:59 06:59 06:59 Intake Total 1500 1979 Balance 1500 1979 Result Diagrams: 07/11/20 05:39 07/11/20 05:39 Additional Labs: Laboratory Tests 07/11/20 07/11/20 05:39 05:39 Phosphorus 2.0 L Lipase 491 H Hospitalist ROS - Review of Systems Respiratory: denies: cough, dry, shortness of breath, hemoptysis, SOB with excertion, pleuritic pain, sputum, wheezing, other Cardiovascular: denies: chest pain, palpitations, orthopnea, paroxysmal noc. dyspnea, edema, light headedness, other - Medication Medications: Active Medications Generic Name Dose Route Start Last Admin Trade Name Freq PRN Reason Stop Dose Admin Amino Ac/Electrol/Dextrose/Calcium 2,000 ml 07/11/20 09:15 07/11/20 10:09 Clinimix E 4.25%-5% Solution IV 2,000 ml INF DEVANTE Administration Promethazine HCl 25 mg/ Sodium 51 mls @ 102 mls/hr 07/09/20 08:28 07/09/20 10 :04 Chloride IVPB 51 mls Q6H PRN Administration Nausea Fentanyl Citrate 2,000 mcg/ 100 mls @ 0 mls/hr 07/09/20 10:19 07/11/20 02:07 Sodium Chloride IV 100 mls INF PRN Administration Pain As Directed Nicotine 14 mg 07/08/20 21:00 07/10/20 21:04 Nicoderm Patch TD 14 mg Q24HR DEVANTE Administration Ondansetron HCl 4 mg 07/08/20 18:57 07/10/20 05:56 Zofran Odt PO 4 mg Q6H PRN Administration Nausea/Vomiting Ondansetron HCl 4 mg 07/09/20 10:19 07/11/20 14:42 Zofran IVP 4 mg Q6H PRN Administration Nausea/Vomiting Pantoprazole Sodium 40 mg 07/11/20 09:00 07/11/20 08:37 Protonix IVP 40 mg DAILY DEVANTE Administration - Exam General Appearance: NAD Neck: supple, no JVD Heart: RRR, no gallops Respiratory: no wheezes, no ronchi Gastrointestinal: soft, no guarding, no rigidity, tender to palpation ( Epigastric region) Extremities: no cyanosis, no clubbing Hosp A/P - Plan DVT proph w/SCDs Abdominal pain with elevated lipase/acute pancreatitis Lung nodules with extensive lymphadenopathy Bilateral adrenal masses ? Metastasis Ongoing tobacco abuse Dehydration Hyponatremia Hypophosphatemia Chronic pain syndrome Plan: 07/11 Continue IV fluids. Continue clear liquid diet as tolerated. Npo past midnight. Bronchoscopy tomorrow. Continue HEALTH ADMINISTRATION TEACHER for pain control. Replace phosphorus. Recheck labs including lipase in a.m. 07/10 Continue HEALTH ADMINISTRATION TEACHER for pain control. Continue IV fluid with dextrose. Clear liquid diet. Lipase improving. Recheck labs in a.m. Bronchoscopy planned for Wednesday. Change PPI to po. Continue other medications as above. 07/09 Pain is uncontrolled despite morphine 4 mg every 4 hourly. We will start him on fentanyl HEALTH ADMINISTRATION TEACHER. Change IV fluid to D5 with potassium. Recheck labs including lipase in a.m. Await GI and pulmonary input. N.p.o. Right upper quadrant ultrasound noted.
[2020-07-11] MEDS ORDERED: diphenhydrAMINE 25 MG CAP PO PRN (18:21)
[2020-07-11] MEDS ORDERED: Melatonin 3 MG TAB PO PRN (18:22)
--- NOTE | 2020-07-11 19:50 | PRG ---
DATE OF SERVICE: 07/11/2020 REASON FOR CONSULTATION: Acute pancreatitis, abnormal GI imaging showing pancreatic mass. SUBJECTIVE: Today, the patient states that with the initiation of a liquid diet, he has been having increased abdominal pain with ingestion of any food stuffs thus far. He also complains of increased nausea, but has also been placed on a [employer] pump in the meantime. With the use of a [employer] FARM[employer] pump outside of eating episodes, he states his pain is managed. Otherwise he denies any vomiting, fevers, chills, hematemesis, melena, hematochezia, dysphagia, or odynophagia. OBJECTIVE: VITAL SIGNS: Temperature 98.3, pulse 70, blood pressure 137/68, respiratory rate 17, saturating 98% on room air. GENERAL: The patient was lying in bed, in no acute distress. Alert and oriented x4. CARDIOVASCULAR: Regular rate and rhythm. RESPIRATORY: Clear to auscultation bilaterally. ABDOMEN: Hypoactive bowel sounds. Soft, mildly distended. Tenderness to palpation in the epigastric region. LABORATORY DATA: CBC with a white blood cell count of 7.4, hemoglobin 12.2, hematocrit 36.9, platelets 293. Chemistry with a sodium of 135, potassium 4, chloride 106, CO2 of 23, BUN 6, creatinine 0.71, glucose 105. AST 19, ALT 7, alkaline phosphatase 77, total bilirubin 0.2. Lipase 491. IMAGING DATA: No current GI imaging is available for review. ASSESSMENT AND PLAN: 1. Probable metastatic disease with lymphadenopathy. The patient is presenting with imaging showing multiple masses in the chest and severe hilar lymphadenopathy. Additional imaging of the abdomen including an MRI obtained on July 09, 2020, showed the presence of a poorly enhancing mass measuring 1.9 cm in size, which extends outside the dorsal aspect of the pancreatic body/tail. There is also a poorly enhancing 11 mm mass along the ventral aspect of the pancreatic head, separate from the common bile duct and contained within the pancreatic parenchyma. At this point, the patient is presenting with imaging showing multiple solid nodules/masses in the right lung, hilar lymphadenopathy as well as 2 additional masses within the pancreas consistent with metastatic disease with unknown primary. The patient is scheduled for bronchoscopy tomorrow, hopefully for tissue sample to better guide further management. 2. Acute pancreatitis. The patient is presenting with increased midepigastric abdominal pain and elevated lipase consistent with acute pancreatitis. At this time, it is unclear if this is due to current tobacco use or the presence of pancreatic masses/metastatic disease contributing to this particular pancreatitis. At this time, I would favor the latter contributing to the pancreatitis at which point treating the underlying malignancy would be most beneficial. RECOMMENDATIONS: 1. Agree with proceeding with bronchoscopy tomorrow for further evaluation and tissue diagnosis of metastatic disease. 2. Pain control per primary team. 3. Would continue patient on a liquid diet for now given increased abdominal pain with administration today. 4. Continue with IV fluid administration. We will continue to follow. Please call with any questions. Job ID: [id number]
[2020-07-11] MEDS: Nicotine 14 MG PATCH TD SCH (20:32)
[2020-07-12 05:41] LABS: #Eosinphils 0.4 thou/uL (0.0-0.7); #Monocytes 0.8 thou/uL (0.11-0.59); #Neutrophils 5.9 thou/uL (1.40-6.50); %Basophils 0.4 % (0.0-1.0); %Eosinophils 4.8 % (0.0-10.0); %Lymphocytes 21.6 % (21.0-51.0); %Monocytes 8.4 % (0.0-10.0); %Neutrophils 64.7 % (42.0-75.0); Hemoglobin 13.1 g/dL (14.0-18.0); Mean Corpuscular HGB CONC 32.7 g/dL (32.0-36.0); Mean Corpuscular Hemoglobin 28.9 pg (27.0-31.0); Mean Corpuscular Volume 88.1 fL (78.0-98.0); Mean Platelet Volume 6.6 fL (7.4-10.4); Platelet Count 326 thou/uL (130-400); RBC Distribution Width 13.6 % (11.5-14.5); Red Blood Cell (RBC) Count 4.53 mill/uL (4.70-6.10); White Blood Cell (WBC) Count 9.1 thou/uL (4.8-10.8)
[2020-07-12 05:59] LABS: Phosphorus 2.9 mg/dL (2.3-4.7)
[2020-07-12 06:01] LABS: ALT (SGPT) 7 U/L (8-55); AST (SGOT) 17 U/L (5-34); Albumin 3.5 g/dL (3.4-4.8); Alkaline Phosphatase 81 U/L (40-110); Anion Gap 9 mmol/L (10-20); BUN (Urea Nitrogen) 11 mg/dL (8.4-25.7); Bilirubin, Total 0.3 mg/dL (0.2-1.2); Calc. Creatinine Clearance 96 mL/min (70-130); Calcium 8.8 mg/dL (7.8-10.44); Carbon Dioxide 26 mmol/L (23-31); Chloride 104 mmol/L (98-107); Estimated GFR-MDRD Greater than 90; Globulin 3.4 g/dL (2.4-3.5); Glucose 131 mg/dL (80-115); Lipase 727 U/L (8-78); Magnesium 2.2 mg/dL (1.6-2.6); Protein, Total 6.9 g/dL (5.8-8.1); Sodium 135 mmol/L (136-145)
[2020-07-12] MEDS: AA 4.25 %/CALCIUM/LYTES/D5W (PPN) 2,000 ML BAG IV SCH (06:22)
[2020-07-12] MEDS ORDERED: Fentanyl 100 MCG/2 ML VIAL ONE ×3 (08:45→09:32)
[2020-07-12] MEDS ORDERED: Lidocaine 1% PF 5 ML VIAL ONE (09:00)
[2020-07-12] MEDS ORDERED: Rocuronium Bromide 10 MG/ML (10ML VIAL) ONE (09:00)
[2020-07-12] MEDS ORDERED: PROPOFOL 200 MG/20 ML VIAL ONE (09:00)
[2020-07-12] MEDS ORDERED: Dexamethasone 20 MG/5 ML VIAL ONE (09:00)
[2020-07-12] MEDS ORDERED: Ondansetron PF 4 MG/2 ML Vial ONE (09:00)
[2020-07-12] MEDS ORDERED: HYDROmorphone 2 MG/ML VIAL ONE (09:35)
[2020-07-12] MEDS ORDERED: Midazolam HCl 2 mg/2 ml Vial ONE (10:28)
[2020-07-12] MEDS ORDERED: PACU-Morphine 4MG/ML VIAL SLOW IVP PRN (10:37)
[2020-07-12] MEDS ORDERED: Promethazine HCl 25 MG/ML VIAL SLOW IVP PRN (10:37)
[2020-07-12] MEDS ORDERED: Promethazine HCl 25 MG/ML VIAL IM PRN (10:37)
[2020-07-12] MEDS ORDERED: HYDROmorphone 2 MG/ML VIAL SLOW IVP PRN (10:37)
[2020-07-12] MEDS ORDERED: Meperidine HCl/PF 25 MG/ML VIAL SLOW IVP PRN (10:37)
--- NOTE | 2020-07-12 11:27 | OP ---
DATE OF PROCEDURE: 07/12/2020 PROCEDURE PERFORMED: Fiberoptic bronchoscopy with biopsy. PREOPERATIVE DIAGNOSES: Lung mass, mediastinal lymphadenopathy. POSTOPERATIVE DIAGNOSES: Lung mass, mediastinal lymphadenopathy. ANESTHESIA: General endotracheal. DESCRIPTION OF PROCEDURE: Informed consent was obtained prior to the procedure. The patient was brought to the operating room. Time-out was taken prior to the procedure. The patient was intubated by Anesthesia with an 8.5 endotracheal tube at 24 cm at the lip. An Olympus bronchoscope was placed through an adapter into the patient's endotracheal tube while he was on mechanical ventilation. The trachea, left mainstem bronchus, left upper lobe, and left lower lobe were clear. 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 This totally obliterated the orifice to the right upper lobe. I could get past the tumor in the right mainstem bronchus and the scope was easily passed into the right middle lobe and right lower lobe, which were clear. I would estimate that the tumor was obliterating the right mainstem bronchus about 30%, 100% obliteration of the right upper lobe. A series of endobronchial biopsies and endobronchial brushings were obtained. Endobronchial washings were also sent. Some epinephrine was placed on the tumor prior to procedure to limit bleeding. The procedure was tolerated well. The patient was extubated and sent to recovery room in stable condition. Job ID: [id number]
[2020-07-12] MEDS: Pantoprazole 40 MG VIAL IVP SCH (11:50)
--- NOTE | 2020-07-12 14:43 | PRG ---
DATE OF SERVICE: 07/12/2020 REASON FOR CONSULTATION: Acute pancreatitis, abnormal GI imaging showing the pancreatic mass. SUBJECTIVE: Earlier today, the patient underwent bronchoscopy with the discovery of a mass within the right lung obliterating the right upper lobe and partially occluding the right mainstem bronchus. Multiple biopsies were taken for further evaluation. In the postprocedure setting, the patient stated that he was doing good, but after returning to the room, attempted to eat something and had increase in his abdominal pain. Thus far, he states that he has been having to use the GUEST EXPERIENCE SPECIALIST pump frequently to "just ahead of the pain." Otherwise, he denies any vomiting, fevers, chills, hematemesis, melena, hematochezia, dysphagia, or odynophagia. OBJECTIVE: VITAL SIGNS: Temperature 98.8, pulse 86, blood pressure 116/39, respiratory rate 18, and saturating 97% on room air. GENERAL: The patient was lying in bed, in no acute distress. Alert and oriented x4. CARDIOVASCULAR: Regular rate and rhythm. RESPIRATORY: Clear to auscultation bilaterally. ABDOMEN: Hypoactive bowel sounds. Soft, nontender, nondistended. EXTREMITIES: No cyanosis, clubbing, or edema. LABORATORY DATA: CBC with a white blood cell count of 9.1, hemoglobin 13.1, hematocrit 39.9, and platelets 326. Chemistry with a sodium of 135, potassium 4, chloride 104, CO2 of 26, BUN 11, creatinine 0.74, glucose 131, AST 17, ALT 7, alkaline phosphatase 81, total bilirubin 0.3. IMAGING DATA: No current GI imaging is available for review. ASSESSMENT AND PLAN: 1. Probable metastatic disease with lymphadenopathy. The patient is presenting with imaging showing multiple masses in the chest, severely hilar lymphadenopathy in addition to 2 poorly-enhancing masses within the pancreas measuring 1.9 and 1.1 cm in diameter. The patient underwent bronchoscopy earlier today, which showed the presence of a large tumor within the right lung with biopsy still pending at this time. At this time, it is unclear if this is from a lung primary or pancreatic primary, but based on the location of these lesions and the sizes of these lesions, a lung primary was favored. 2. Acute pancreatitis. The patient initially presented with increased midepigastric abdominal pain and elevated lipase consistent with acute pancreatitis. He has thus far responded moderately well to IV fluid administration and pain control, although he seems to require increasing amounts of pain medications via the G[employer]PERIENCE SPECIALIST pump. On physical exam today, his pain is out of proportion to exam where he is completely nontender on palpation of his abdomen, raising concern for possible mesenteric ischemia versus secondary gain. At this time, I would favor the latter given his demeanor so far and the imaging obtained thus far not indicative of ischemia in the abdomen. However, with this increasing abdominal pain, especially with food intake, worsening pancreatitis cannot be ruled out nor can complications of pancreatitis including pseudocyst or necrosis. Recommendations;. a. Would follow up on the biopsy results from the bronchoscopy earlier today with further management guided by pathology report. b. Pain control per primary team. c. Would make the patient n.p.o. today and re-evaluate the patient in 24 hours for advancing his diet. d. If the patient continues to have abdominal pain, despite n.p.o. status, we would consider repeating the CT of the abdomen and pelvis for evaluation of possible necrosis versus pseudocyst formation. Job ID: [id number]
[2020-07-12] MEDS: Nicotine 14 MG PATCH TD SCH (20:00)
[2020-07-12] MEDS: Ondansetron PF 4 MG/2 ML Vial IVP PRN (20:08)
--- NOTE | 2020-07-12 23:26 | PDOC.HOSPP ---
- Subjective Encounter Date: 07/12/20 Encounter Time: 12:45 Subjective: Seen and examined for acute pancreatitis with lung mass. Underwent bronchoscopy today. Pain control with ORTHODONTIST SMALL BUSINESS OWNER. Denies any nausea, vomiting, cough or hemoptysis. Abdominal pain unchanged. - Objective Vital Signs & Weight: Vital Signs (12 hours) Temp Pulse Resp BP BP Pulse Ox 07/12/20 21:57 96 07/12/20 19:35 98.7 F 71 16 164/71 H 96 07/12/20 18:20 98.4 F 89 16 162/84 H 100 07/12/20 17:33 98.7 F 93 16 136/77 100 07/12/20 16:55 83 16 153/79 H 07/12/20 14:45 98.7 F 72 18 116/67 100 07/12/20 13:45 73 135/66 98 07/12/20 13:15 78 128/74 97 07/12/20 12:45 85 134/69 98 07/12/20 12:15 90 136/74 100 07/12/20 11:45 98.8 F 86 18 116/39 L 97 Weight Admit Weight 144 lb 8 oz Weight 144 lb 8 oz I&O: 07/11/20 07/12/20 07/13/20 06:59 06:59 06:59 Intake Total 1979 1250 1300 Output Total 7000 Balance 1979 1250 -5700 Result Diagrams: 07/12/20 05:15 07/12/20 05:15 Additional Labs: Laboratory Tests 07/12/20 07/12/20 05:15 05:15 Phosphorus 2.9 Lipase 727 H Hospitalist ROS - Review of Systems Respiratory: denies: cough, dry, shortness of breath, hemoptysis, SOB with excertion, pleuritic pain, sputum, wheezing, other - Medication Medications: Active Medications Generic Name Dose Route Start Last Admin Trade Name Freq PRN Reason Stop Dose Admin Amino Ac/Electrol/Dextrose/Calcium 2,000 ml 07/11/20 09:15 07/12/20 06:22 Clinimix E 4.25%-5% Solution IV 2,000 ml INF DEVANTE Administration Promethazine HCl 25 mg/ Sodium 51 mls @ 102 mls/hr 07/09/20 08:28 07/09/20 10 :04 Chloride IVPB 51 mls Q6H PRN Administration Nausea Fentanyl Citrate 2,000 mcg/ 100 mls @ 0 mls/hr 07/09/20 10:19 07/11/20 21:58 Sodium Chloride IV 100 mls INF PRN Administration Pain As Directed Melatonin 3 mg 07/11/20 18:22 07/11/20 22:01 Melatonin PO 3 mg HS PRN Administration Insomnia Nicotine 14 mg 07/08/20 21:00 07/12/20 20:00 Nicoderm Patch TD 14 mg Q24HR DEVANTE Administration Ondansetron HCl 4 mg 07/08/20 18:57 07/10/20 05:56 Zofran Odt PO 4 mg Q6H PRN Administration Nausea/Vomiting Ondansetron HCl 4 mg 07/09/20 10:19 07/12/20 20:08 Zofran IVP 4 mg Q6H PRN Administration Nausea/Vomiting Pantoprazole Sodium 40 mg 07/11/20 09:00 07/12/20 11:50 Protonix IVP 40 mg DAILY DEVANTE Administration - Exam General Appearance: NAD Neck: supple, no JVD Heart: RRR, no gallops Respiratory: no wheezes, no ronchi Gastrointestinal: soft, non-tender, normal bowel sounds Extremities: no cyanosis Hosp A/P - Plan DVT proph w/SCDs Abdominal pain with elevated lipase/acute pancreatitis Lung nodules with extensive lymphadenopathy Bilateral adrenal masses ? Metastasis Ongoing tobacco abuse Dehydration Hyponatremia Hypophosphatemia Chronic pain syndrome Plan: 07/12 S/p bronchoscopy. Await biopsy. New PPN. Continue PPI. Unable to tolerate po due to significant pain. Continue ORTHODONTIST [employer] BUSINESS OWNER For pain control. Continue IV fluids. A.m. labs including lipase. 07/11 Continue IV fluids. Continue clear liquid diet as tolerated. Npo past midnight. Bronchoscopy tomorrow. Continue ORTHODONTIST SMALL BUSINESS OWNER for pain control. Replace phosphorus. Recheck labs including lipase in a.m. 07/10 Continue ORTHODONTIST SMALL BUSINESS OWNER for pain control. Continue IV fluid with dextrose. Clear liquid diet. Lipase improving. Recheck labs in a.m. Bronchoscopy planned for Wednesday. Change PPI to po. Continue other medications as above. 07/09 Pain is uncontrolled despite morphine 4 mg every 4 hourly. We will start him on fentanyl ORTHODONTIST [employer] BUSINESS OWNER. Change IV fluid to D5 with potassium. Recheck labs including lipase in a.m. Await GI and pulmonary input. N.p.o. Right upper quadrant ultrasound noted.
[2020-07-13] MEDS: Ondansetron PF 4 MG/2 ML Vial IVP PRN ×2 (01:08→22:23)
[2020-07-13 05:51] LABS: #Eosinphils 0.1 thou/uL (0.0-0.7); #Lymphocytes 2.1 thou/uL (1.20-3.40); #Monocytes 0.9 thou/uL (0.11-0.59); #Neutrophils 7.6 thou/uL (1.40-6.50); %Basophils 0.2 % (0.0-1.0); %Eosinophils 1.3 % (0.0-10.0); %Lymphocytes 19.3 % (21.0-51.0); %Monocytes 8.7 % (0.0-10.0); %Neutrophils 70.6 % (42.0-75.0); Hemoglobin 12.2 g/dL (14.0-18.0); Mean Corpuscular HGB CONC 31.9 g/dL (32.0-36.0); Mean Corpuscular Hemoglobin 28.2 pg (27.0-31.0); Mean Corpuscular Volume 88.4 fL (78.0-98.0); Mean Platelet Volume 6.6 fL (7.4-10.4); Platelet Count 307 thou/uL (130-400); RBC Distribution Width 13.7 % (11.5-14.5); Red Blood Cell (RBC) Count 4.33 mill/uL (4.70-6.10); White Blood Cell (WBC) Count 10.7 thou/uL (4.8-10.8)
[2020-07-13 06:19] LABS: ALT (SGPT) Less than 7 U/L (8-55); AST (SGOT) 16 U/L (5-34); Albumin 3.5 g/dL (3.4-4.8); Alkaline Phosphatase 77 U/L (40-110); Anion Gap 11 mmol/L (10-20); BUN (Urea Nitrogen) 17 mg/dL (8.4-25.7); Bilirubin, Total 0.2 mg/dL (0.2-1.2); Calc. Creatinine Clearance 91 mL/min (70-130); Calcium 8.9 mg/dL (7.8-10.44); Carbon Dioxide 27 mmol/L (23-31); Chloride 102 mmol/L (98-107); Estimated GFR-MDRD Greater than 90; Globulin 3.4 g/dL (2.4-3.5); Glucose 123 mg/dL (80-115); Lipase 572 U/L (8-78); Magnesium 2.1 mg/dL (1.6-2.6); Phosphorus 3.7 mg/dL (2.3-4.7); Potassium 4.1 mmol/L (3.5-5.1); Protein, Total 6.9 g/dL (5.8-8.1); Sodium 136 mmol/L (136-145)
[2020-07-13] MEDS: AA 4.25 %/CALCIUM/LYTES/D5W (PPN) 2,000 ML BAG IV SCH (06:44)
[2020-07-13] MEDS: Pantoprazole 40 MG VIAL IVP SCH (08:26)
[2020-07-13] MEDS: fentaNYL Citrate/PF 2,000 MCG in Sodium Chloride 0.9% 60 ML IV PRN ×2 (10:28→22:07)
[2020-07-13] MEDS ORDERED: Iopamidol-370 76% 500 ML 1 ML ONE (11:45)
--- NOTE | 2020-07-13 12:18 | PDOC.HOSPP ---
- Subjective Encounter Date: 07/13/20 Encounter Time: 12:15 Subjective: f/u for acute pancreatitis with pancreatic and lung masses s/p bronchoscopy with bx and pathology pending. Receiving TECH BRAZER TESTER for pain control and NPO status. - Objective Vital Signs & Weight: Vital Signs (12 hours) Temp Pulse Resp BP Pulse Ox 07/13/20 08:25 95 07/13/20 07:12 98.6 F 71 18 144/68 H 95 07/13/20 05:25 98.6 F 77 16 172/75 H 98 Weight Admit Weight 144 lb 8 oz Weight 144 lb 8 oz I&O: 07/12/20 07/13/20 07/14/20 06:59 06:59 06:59 Intake Total 1250 2730 Output Total 7000 Balance 1250 -4270 Result Diagrams: 07/13/20 05:34 07/13/20 05:34 Additional Labs: Laboratory Tests 07/08/20 07/08/20 07/09/20 15:32 20:20 04:56 Lipase 745 H 630 H COVID-19 PCR Not Detected 07/10/20 07/11/20 07/12/20 05:28 05:39 05:15 Lipase 270 H 491 H 727 H COVID-19 PCR 07/13/20 05:34 Lipase 572 H COVID-19 PCR Hospitalist ROS - Medication Medications: Active Medications Generic Name Dose Route Start Last Admin Trade Name Freq PRN Reason Stop Dose Admin Amino Ac/Electrol/Dextrose/Calcium 2,000 ml 07/11/20 09:15 07/13/20 06:44 Clinimix E 4.25%-5% Solution IV 2,000 ml INF DEVANTE Administration Promethazine HCl 25 mg/ Sodium 51 mls @ 102 mls/hr 07/09/20 08:28 07/09/20 10 :04 Chloride IVPB 51 mls Q6H PRN Administration Nausea Fentanyl Citrate 2,000 mcg/ 100 mls @ 0 mls/hr 07/09/20 10:19 07/13/20 10:28 Sodium Chloride IV 100 mls INF PRN Administration Pain As Directed Melatonin 3 mg 07/11/20 18:22 07/11/20 22:01 Melatonin PO 3 mg HS PRN Administration Insomnia Nicotine 14 mg 07/08/20 21:00 07/12/20 20:00 Nicoderm Patch TD 14 mg Q24HR DEVANTE Administration Ondansetron HCl 4 mg 07/08/20 18:57 07/10/20 05:56 Zofran Odt PO 4 mg Q6H PRN Administration Nausea/Vomiting Ondansetron HCl 4 mg 07/09/20 10:19 07/13/20 01:08 Zofran IVP 4 mg Q6H PRN Administration Nausea/Vomiting Pantoprazole Sodium 40 mg 07/11/20 09:00 07/13/20 08:26 Protonix IVP 40 mg DAILY DEVANTE Administration - Exam General Appearance: NAD, awake alert Eye: PERRL, anicteric sclera ENT: normocephalic atraumatic, no oropharyngeal lesions Neck: supple, symmetric, no JVD, no thyromegaly, no lymphadenopathy Heart: RRR, no murmur, no gallops, no rubs, normal peripheral pulses Heart - other findings: S1, S2 Respiratory - other findings: few wheezes, prolonged exp phase Gastrointestinal: soft, normal bowel sounds, no hepatomegaly, no splenomegaly, no rigidity Gastrointestinal - other findings: mild TTP in epigastric region Extremities: no cyanosis, no clubbing, no edema Skin: normal turgor, no lesions Neurological: cranial nerve grossly intact, no new deficit Musculoskeletal: normal tone, generalized weakness Psychiatric: A&O x 3, flat affect Hosp A/P (1) Acute pancreatitis Code(s): K85.90 - ACUTE PANCREATITIS WITHOUT NECROSIS OR INFECTION, UNSP Status: Acute Plan: Likely metastatic process with concern for lung primary source, NPO currently, TECH BRAZER TESTER pump, continue PPN (2) Mass of right lung Code(s): R91.8 - OTHER NONSPECIFIC ABNORMAL FINDING OF LUNG FIELD Status: Acute Plan: s/p bronchoscopy with bx pending, supportive mgmt, pathology pending (3) Chronic pain syndrome Code(s): G89.4 - CHRONIC PAIN SYNDROME Status: Chronic Plan: Continue TECH BRAZER TESTER with Fentanyl (4) Tobacco abuse Code(s): Z72.0 - TOBACCO USE Status: Chronic Plan: Tobacco cessation resources - Plan manager social media, respiratory therapy, out of bed/ambulate, DVT proph w/SCDs Stable currently TECH BRAZER TESTER pump for pain control NPO status to continue Continue PPN Await lung mass biopsies AM lab: Lipase
--- NOTE | 2020-07-13 14:04 | PRG ---
DATE OF SERVICE: 07/13/2020 SUBJECTIVE: Mr. Nunez is afebrile. OBJECTIVE: VITAL SIGNS: Heart rate is 71, respiratory rate is 18, oximetry is 95% on room air, blood pressure is 144/68. LUNGS: Clear. HEART: Regular rhythm. ABDOMEN: Soft. He has no complaints other than wanting a cheeseburger. Apparently, he is n.p.o. Reviewed Dr. Cotto's bronchoscopy note. He has a right mainstem bronchus lesion that extends into the right upper lobe and includes the right upper lobe. Multiple biopsies were done. Those results will not be back until early next week. Probably, we will see him again on Wednesday. Job ID: [id number]
--- NOTE | 2020-07-13 16:21 | PRG ---
DATE OF SERVICE: 07/13/2020 REASON FOR CONSULTATION: Acute pancreatitis, abnormal GI imaging showing a pancreatic mass. SUBJECTIVE: The patient continues to have significant midepigastric abdominal pain despite administration of a TESTING AND REGULATING TECHNICIAN pump. In fact, the dosage on the TESTING AND REGULATING TECHNICIAN pump needed to be increased due to the patient's tolerance (the patient had been receiving fentanyl patches as an outpatient for the last year prior to admission). On further questioning the patient, he has not had a bowel movement for at least one week. Currently, he is n.p.o. with no ingested food within the last 24 hours. Otherwise, he denies any nausea, vomiting, fevers, chills, hematemesis, melena, hematochezia, dysphagia, or odynophagia. OBJECTIVE: VITAL SIGNS: Temperature 98.6, pulse 71, blood pressure 144/68, respiratory rate 18, saturating 95% on room air. GENERAL: The patient was lying in bed, in no acute distress. Alert and oriented x4. CARDIOVASCULAR: Regular rate and rhythm. RESPIRATORY: Clear to auscultation bilaterally. ABDOMEN: Hypoactive bowel sounds. Soft, nontender, and nondistended. EXTREMITIES: No cyanosis, clubbing, or edema. LABORATORY DATA: CBC with a white blood cell count of 10.7, hemoglobin 12.2, hematocrit 38.3, platelets 307. Chemistry with a sodium of 136, potassium 4.1, chloride 102, CO2 of 27, BUN 17, creatinine 0.78, glucose 123, AST 16, ALT less than 7, alkaline phosphatase 77, and total bilirubin 0.2. IMAGING DATA: No current GI imaging is available for review. ASSESSMENT AND PLAN: 1. Probable metastatic disease with lymphadenopathy. The patient presenting with multiple masses in the chest, severe hilar lymphadenopathy, in addition to two poorly enhancing masses within the pancreas measuring 1.9 cm and 1.1 cm in diameter. Currently awaiting biopsies from recent bronchoscopy to determine if this is possible primary source. At this point, it is unclear if this is from a lung primary source or pancreatic primary malignant lesion. 2. Acute pancreatitis. The patient presented with increased midepigastric abdominal pain and elevated lipase consistent with acute pancreatitis. The patient initially responded well to IV fluid administration and pain control, although he still seems to require increasing amounts of pain medications in order to achieve adequate pain control. On physical exam today, his pain is again out of proportion to exam, raising concern for other intraabdominal process, worsening pancreatitis or necrosis cannot be ruled out at this time. RECOMMENDATIONS: 1. Follow up on biopsy results from bronchoscopy. 2. Pain control per primary team. 3. Would continue n.p.o. status and re-evaluate the patient in 24 hours. Continue with TPN. 4. We would repeat his CT of the abdomen and pelvis for possible complications or sequelae of acute pancreatitis. 5. We would start the patient on 25 mg daily given his significant constipation and administration of narcotics. We will continue to follow. Please call with any questions. Job ID: [id number]
--- NOTE | 2020-07-13 17:58 | CT ---
CT ABDOMEN AND PELVIS PERFORMED WITH CONTRAST ENHANCEMENT: 07/13/20 HISTORY: Patient has a history of pancreatic mass. Having pain. COMPARISON: An 07/08/20 CT study and an MRI examination of 07/09/20. The lung bases are clear of any infiltrative process. Partial visualized soft tissue changes in the m ediastinum have been described in this previous CT report. The liver and spleen are unremarkable in a ppearance. Subtle mass-like areas of pancreatic head/body junction and subtle area of decreased atten uation of the pancreatic head. Much more difficult to visualize on MRI study but felt to be stable. G allbladder region is unremarkable. Bilateral adrenal mass is again demonstrated. Right and left kidneys are normal in size. Bilateral re nal cysts are seen. Small periaortic and aortocaval nodes are subcentimeter in size. CT OF PELVIS PERFORMED WITH CONTRAST ENHANCEMENT: Appendix region appears unremarkable. No pelvic lymphadenopathy or mass. Review of osseous structures show no lytic or blastic bony changes. IMPRESSION: 1. The pancreatic masses are much more difficult to visualize on CT examination but are felt to be stable as compared to MRI study. 2. Bilateral adrenal mass is highly suspicious for metastatic disease. 3. Bilateral renal cysts. 4. No acute process or definite change since 07/08/20 CT study. POS: OFF
[2020-07-13] MEDS: Nicotine 14 MG PATCH TD SCH (21:31)
[2020-07-14] MEDS: AA 4.25 %/CALCIUM/LYTES/D5W (PPN) 2,000 ML BAG IV SCH (03:24)
[2020-07-14] MEDS: Ondansetron PF 4 MG/2 ML Vial IVP PRN (06:36)
[2020-07-14] MEDS: Pantoprazole 40 MG VIAL IVP SCH (08:16)
[2020-07-14] MEDS ORDERED: Polyethylene Glycol 3350 17 GM Packet PO SCH (09:00)
[2020-07-14] MEDS: fentaNYL Citrate/PF 2,000 MCG in Sodium Chloride 0.9% 60 ML IV PRN (10:50)
--- NOTE | 2020-07-14 11:16 | PRG ---
DATE OF SERVICE: 07/14/2020 Mr. Nunez IV placed. He is afebrile. Heart rate 70, respiratory rate 16, oximetry is 95% on room air, blood pressure 151/77. Intake and outputs, +3230, but there is no output recorded, so this is not accurate. His lipase 613 today. He continues to be followed by GI. His lung biopsy specimens are still pending pathology final report. We will continue to follow. Job ID: [id number]
--- NOTE | 2020-07-14 11:18 | PDOC.HOSPP ---
- Subjective Encounter Date: 07/14/20 Encounter Time: 11:15 Subjective: f/u for suspected metastatic process of ? primary source with R upper lobe lung mass with associated adenopathy and pancreatic/adrenal masses. Awaiting biopsy results from lung masses. Receiving WOOD FLOOR LAYER pump and PPN. c/o persistent pain despite receiving WOOD FLOOR LAYER with Fentanyl. - Objective Vital Signs & Weight: Vital Signs (12 hours) Temp Pulse Resp BP Pulse Ox 07/14/20 08:05 95 07/14/20 06:51 98.4 F 70 16 151/77 H 95 Weight Admit Weight 144 lb 8 oz Weight 144 lb 8 oz I&O: 07/13/20 07/14/20 07/15/20 06:59 06:59 06:59 Intake Total 2730 3230 Output Total 7000 Balance -4270 3230 Result Diagrams: 07/13/20 05:34 07/13/20 05:34 Additional Labs: Laboratory Tests 07/08/20 07/08/20 07/09/20 15:32 20:20 04:56 Lipase 745 H 630 H COVID-19 PCR Not Detected 07/10/20 07/11/20 07/12/20 05:28 05:39 05:15 Lipase 270 H 491 H 727 H COVID-19 PCR 07/13/20 05:34 Lipase 572 H COVID-19 PCR Radiology Reviewed by me: Yes (CT abd/pel - + previous pancreatic/adrenal masses ) Hospitalist ROS - Medication Medications: Active Medications Generic Name Dose Route Start Last Admin Trade Name Freq PRN Reason Stop Dose Admin Amino Ac/Electrol/Dextrose/Calcium 2,000 ml 07/11/20 09:15 07/14/20 03:24 Clinimix E 4.25%-5% Solution IV 2,000 ml INF DEVANTE Administration Promethazine HCl 25 mg/ Sodium 51 mls @ 102 mls/hr 07/09/20 08:28 07/09/20 10 :04 Chloride IVPB 51 mls Q6H PRN Administration Nausea Fentanyl Citrate 2,000 mcg/ 100 mls @ 0 mls/hr 07/09/20 10:19 07/14/20 10:50 Sodium Chloride IV 100 mls INF PRN Administration Pain As Directed Melatonin 3 mg 07/11/20 18:22 07/11/20 22:01 Melatonin PO 3 mg HS PRN Administration Insomnia Miscellaneous Medication 25 mg 07/14/20 07:30 07/14/20 08:16 Movantik PO 25 mg DAILY-AC DEVANTE Administration Nicotine 14 mg 07/08/20 21:00 07/13/20 21:31 Nicoderm Patch TD 14 mg Q24HR DEVANTE Administration Ondansetron HCl 4 mg 07/08/20 18:57 07/10/20 05:56 Zofran Odt PO 4 mg Q6H PRN Administration Nausea/Vomiting Ondansetron HCl 4 mg 07/09/20 10:19 07/14/20 06:36 Zofran IVP 4 mg Q6H PRN Administration Nausea/Vomiting Pantoprazole Sodium 40 mg 07/11/20 09:00 07/14/20 08:16 Protonix IVP 40 mg DAILY DEVANTE Administration Polyethylene Glycol 17 gm 07/14/20 09:00 07/14/20 09:26 Miralax PO Not Given DAILY DEVANTE - Exam General Appearance: ill appearing General - other findings: slurring words, lethargic Eye: PERRL, anicteric sclera ENT: normocephalic atraumatic, no oropharyngeal lesions Neck: supple, symmetric, no JVD, no thyromegaly Heart: RRR, no murmur, no gallops, no rubs, normal peripheral pulses Heart - other findings: S1, S2 Respiratory: CTAB, no rales, no ronchi, normal chest expansion Respiratory - other findings: occ wheeze Gastrointestinal: soft, non-distended, normal bowel sounds, no palpable masses Extremities: no cyanosis, no clubbing, no edema Skin: normal turgor Neurological: cranial nerve grossly intact, no new deficit Musculoskeletal: normal tone, generalized weakness Psychiatric: A&O x 3, flat affect, somnolent, lethargic Hosp A/P (1) Acute pancreatitis Code(s): K85.90 - ACUTE PANCREATITIS WITHOUT NECROSIS OR INFECTION, UNSP Status: Acute Plan: Likely due to metastatic process, awaiting recent lung bx for definitive pathological dx, pain control with WOOD FLOOR LAYER, NPO, PPN (2) Mass of right lung Code(s): R91.8 - OTHER NONSPECIFIC ABNORMAL FINDING OF LUNG FIELD Status: Acute Plan: Await final pathology from recent bx (3) Chronic pain syndrome Code(s): G89.4 - CHRONIC PAIN SYNDROME Status: Chronic Plan: High tolerance for narcotics, receiving WOOD FLOOR LAYER with Fentanyl currently (4) Tobacco abuse Code(s): Z72.0 - TOBACCO USE Status: Chronic - Plan social scientist, out of bed/ambulate, DVT proph w/SCDs Stable currently WOOD FLOOR LAYER pump for pain control NPO status to continue Continue PPN Await lung mass biopsies AM lab: Lipase
[2020-07-14] MEDS ORDERED: diphenhydrAMINE 50 MG/ML VIAL IM PRN (11:59)
[2020-07-14] MEDS ORDERED: Naloxone HCl 0.4 mg/ml Vial IV PRN (11:59)
[2020-07-14] MEDS ORDERED: diphenhydrAMINE 25 MG CAP PO PRN (11:59)
[2020-07-14] MEDS ORDERED: HYDROmorphone 10 mg/100 ml CADD IVPB PRN ×2 (11:59→21:45)
[2020-07-14] MEDS ORDERED: Ondansetron PF 4 MG/2 ML Vial IVP PRN (11:59)
[2020-07-14] MEDS ORDERED: Zolpidem Tartrate 5 MG TAB PO PRN (11:59)
[2020-07-14] MEDS ORDERED: Promethazine HCl 25 MG/ML VIAL IM PRN (11:59)
[2020-07-14] MEDS ORDERED: diphenhydrAMINE 50 MG/ML VIAL IVP PRN (11:59)
[2020-07-14] MEDS ORDERED: Communication Order-Pharmacy FS SCH (12:00)
--- NOTE | 2020-07-14 18:11 | PRG ---
DATE OF SERVICE: 07/14/2020 REASON FOR CONSULTATION: Acute pancreatitis, abnormal GI imaging showing a pancreatic mass. SUBJECTIVE: The patient was transferred over from a fentanyl [employer] pump to Dilaudid [employer] pump and states that "I don't even think this medication is doing anything, is this IV even still working." He continues to have significant periumbilical abdominal pain characterized as a sharp stabbing type sensation, reaching a severity of 10/10. He is very frustrated at this time, stating that he feels that no one is listening to him and that he is here in the hospital in pain and no one is seeking to do anything about it. He did have approximately 3 to 4 bowel movements last night in this morning that were semi-solid to liquid in consistency. Currently, he is still n.p.o. and while he states that he is ravenously hungry, he is afraid to eat any meals for fear of worsening of his abdominal pain. Currently, he denies any nausea, vomiting, fevers, chills, hematemesis, melena, hematochezia, dysphagia, or odynophagia. OBJECTIVE: VITAL SIGNS: Temperature 97.6, pulse 92, blood pressure 167/83, respiratory rate 16, saturating 99% on room air. GENERAL: The patient was lying in bed, in [id number] distress. Alert and oriented x4. CARDIOVASCULAR: Regular rate and rhythm. RESPIRATORY: Clear to auscultation bilaterally. ABDOMEN: Hypoactive bowel sounds. Soft, nondistended. Tenderness to palpation in the midepigastric and periumbilical regions. EXTREMITIES: No cyanosis, clubbing, or edema. LABORATORY DATA: No current studies are available for review. IMAGING DATA: CT of the abdomen and pelvis was obtained on July 13, 2020, which showed clear lung bases with no evidence of infiltrative process. The liver and spleen were unremarkable in appearance. There was subtle mass like areas within the pancreatic head/body junction and a subtle area decreased attenuation within the pancreatic head which was much more difficult to visualize compared to the MRI, but felt to be stable. There was no mention of pancreatic necrosis or pseudocyst formation. Bilateral adrenal masses were again demonstrated as well as small periaortic and aortocaval lymph nodes that are unchanged from previous. ASSESSMENT AND PLAN: 1. Metastatic disease with lymphadenopathy. The patient is presenting with multiple masses in his chest. Severe hilar lymphadenopathy in addition to two poorly enhancing masses within the pancreas concerning for either lung or pancreatic primary malignancy. He has undergone bronchoscopy with a lung mass seen during that examination and biopsy still pending at this time. 2. Acute pancreatitis. The patient initially presented with increased midepigastric abdominal pain and an elevated lipase consistent with acute pancreatitis. He initially responded well to IV fluid administration and pain control, but over the last 2 to 3 days has been requiring increasing amounts of pain medication in order to achieve relief from his abdominal pain. However, on physical exam up until this point, his pain has been out of proportion to his physical exam. He has had a bowel movement, making constipation less likely, but at this time given his chronic use of narcotics as an outpatient and with the decrease in potency of the narcotics administered today, this may be indicative of opiate withdrawal or narcotic bowel syndrome. CT scan obtained yesterday did not show any evidence of pancreatic necrosis or pseudocyst formation that could further contribute to his abdominal pain. At this time, the etiology of his abdominal pain is largely unknown. With only an elevated lipase to suggest possible pancreatitis, although the patient has not responded to more conservative measures thus far, but does not have any evidence of complicated disease on imaging. RECOMMENDATIONS: 1. Would follow up on the biopsy results from the bronchoscopy. 2. Pain control per primary team. 3. Would restart the patient on a clear liquid diet and re-evaluate the patient in 24 hours. Would continue PPN at the same time. 4. Continue naloxegol/Movantik 25 mg daily as part of opiate reversal on the gut and possible opiate-induced constipation. 5. Trending lipase is unnecessary at this time either for pancreatitis or evaluation of the pancreatic tumor as it does not portend severity of disease nor does it determine prognosis. We will continue to follow. Please call with any questions. Job ID: [id number]
[2020-07-14] MEDS ORDERED: Lorazepam 2 MG/ML VIAL SLOW IVP SCH (19:15)
[2020-07-14] MEDS: Nicotine 14 MG PATCH TD SCH (20:38)
[2020-07-15] MEDS: AA 4.25 %/CALCIUM/LYTES/D5W (PPN) 2,000 ML BAG IV SCH (02:53)
[2020-07-15] MEDS ORDERED: Ketorolac Tromethamine 30 MG/ML VIAL IVP SCH (03:45)
[2020-07-15] MEDS: Pantoprazole 40 MG VIAL IVP SCH (07:55)
[2020-07-15] MEDS: Promethazine HCl 25 MG in Sodium Chloride 0.9% 50 ML IVPB PRN (11:21)
--- NOTE | 2020-07-15 13:10 | PDOC.HOSPP ---
- Subjective Encounter Date: 07/15/20 Encounter Time: 13:05 Subjective: f/u for R lung/pancreatic/adrenal masses s/p bx pending final pathology but suspected metastatic process. Requiring PEN MAKER with Dilaudid for pain control. - Objective Vital Signs & Weight: Vital Signs (12 hours) Temp Pulse Resp BP BP BP Pulse Ox 07/15/20 11:02 98.9 F 78 16 176/80 H 98 07/15/20 08:00 97 07/15/20 07:08 98.1 F 88 18 156/81 H 97 07/15/20 04:14 98.7 F 95 22 H 150/75 H 96 07/15/20 01:23 98 F 90 20 155/75 H 99 Weight Admit Weight 144 lb 8 oz Weight 144 lb 8 oz I&O: 07/14/20 07/15/20 07/16/20 06:59 06:59 06:59 Intake Total 3230 1970 Balance 3230 1970 Result Diagrams: 07/13/20 05:34 07/13/20 05:34 Additional Labs: Laboratory Tests 07/08/20 07/08/20 07/09/20 15:32 20:20 04:56 Lipase 745 H 630 H COVID-19 PCR Not Detected 07/10/20 07/11/20 07/12/20 05:28 05:39 05:15 Lipase 270 H 491 H 727 H COVID-19 PCR 07/13/20 05:34 Lipase 572 H COVID-19 PCR Hospitalist ROS - Medication Medications: Active Medications Generic Name Dose Route Start Last Admin Trade Name Freq PRN Reason Stop Dose Admin Amino Ac/Electrol/Dextrose/Calcium 2,000 ml 07/11/20 09:15 07/15/20 02:53 Clinimix E 4.25%-5% Solution IV 2,000 ml INF DEVANTE Administration Promethazine HCl 25 mg/ Sodium 51 mls @ 102 mls/hr 07/09/20 08:28 07/15/20 11 :21 Chloride IVPB 51 mls Q6H PRN Administration Nausea Melatonin 3 mg 07/11/20 18:22 07/11/20 22:01 Melatonin PO 3 mg HS PRN Administration Insomnia Miscellaneous Medication 25 mg 07/14/20 07:30 07/15/20 10:34 Movantik PO 25 mg DAILY-AC DEVANTE Administration Nicotine 14 mg 08/31/20 21:00 07/14/20 20:38 Nicoderm Patch TD 14 mg Q24HR DEVANTE Administration Ondansetron HCl 4 mg 07/08/20 18:57 07/10/20 05:56 Zofran Odt PO 4 mg Q6H PRN Administration Nausea/Vomiting Ondansetron HCl 4 mg 07/14/20 11:59 07/15/20 04:07 Zofran IVP 4 mg Q6H PRN Administration Nausea/Vomiting Pantoprazole Sodium 40 mg 07/11/20 09:00 07/15/20 07:55 Protonix IVP 40 mg DAILY DEVANTE Administration - Exam General Appearance: ill appearing General - other findings: sleepy Eye: PERRL, anicteric sclera ENT: normocephalic atraumatic, no oropharyngeal lesions Neck: supple, symmetric, no JVD, no thyromegaly, no lymphadenopathy Heart: RRR, no gallops, no rubs, normal peripheral pulses Heart - other findings: S1, S2 Respiratory: CTAB, no rales, no ronchi, no tachypnea Gastrointestinal: soft, non-tender, non-distended, normal bowel sounds, no palpable masses Extremities: no cyanosis, no clubbing, no edema Skin: normal turgor, no lesions Neurological: cranial nerve grossly intact, no new deficit Musculoskeletal: normal tone, generalized weakness Psychiatric: oriented to person, oriented to place, flat affect, somnolent, lethargic Hosp A/P (1) Acute pancreatitis Code(s): K85.90 - ACUTE PANCREATITIS WITHOUT NECROSIS OR INFECTION, UNSP Status: Acute Plan: Suspected, Lipase remains elevated despite NPO status, likely infiltrative process in context of metastatic disease, pain control, continue PPN (2) Mass of right lung Code(s): R91.8 - OTHER NONSPECIFIC ABNORMAL FINDING OF LUNG FIELD Status: Acute Plan: Suspect malignant process, await final pathology results (3) Chronic pain syndrome Code(s): G89.4 - CHRONIC PAIN SYNDROME Status: Chronic Plan: Requiring PEN MAKER with Dilaudid currently (4) Tobacco abuse Code(s): Z72.0 - TOBACCO USE Status: Chronic - Plan PT/OT, social work program coordinator, out of bed/ambulate, DVT proph w/SCDs Consults: Palliative Care Stable currently PEN MAKER pump for pain control, currently receiving Dilaudid NPO status to continue Continue PPN Await lung mass biopsy results Palliative care consult OOB with PT AM lab: Lipase
--- NOTE | 2020-07-15 14:16 | PRG ---
DATE OF SERVICE: 07/15/2020 SUBJECTIVE: The patient is somewhat from his IV narcotics that he is taking for abdominal pain. OBJECTIVE: VITAL SIGNS: Temperature 98.9, pulse rate 78, respirations are 16, oxygen saturation 98% on room air, and blood pressure 176/80. HEENT: Unremarkable. NECK: No adenopathy or JVD. LUNGS: Decreased air entry on the right. CARDIAC: S1 and S2. Regular. ABDOMEN: Soft. EXTREMITIES: No edema. ASSESSMENT: Likely lung cancer with metastasis. PLAN: Await biopsy results. Hopefully, those will be back tomorrow. Job ID: [id number]
[2020-07-15] MEDS: Nicotine 14 MG PATCH TD SCH (20:53)
--- NOTE | 2020-07-15 21:24 | PRG ---
DATE OF SERVICE: 07/15/2020 REASON FOR CONSULTATION: Acute pancreatitis, abnormal GI imaging showing pancreatic masses. SUBJECTIVE: During the course of the day today, the patient had been using his Dilaudid TOP DYEING MACHINE TENDER pump more as per direction by nursing staff (per discussion with nursing staff, the patient had not been pressing his button at all) and while on this new regimen, he had been displaying increased somnolence and was asleep multiple times during the day when approached for interview. At the current point in time, he still states that his pain is only adequately controlled with Dilaudid. He did have approximately 1 bowel movement earlier today that was semi-solid and liquid in consistency. He is still afraid to consume any meals due to fear of increased abdominal pain. OBJECTIVE: VITAL SIGNS: Temperature 99.3, pulse 84, blood pressure 162/81, respiratory rate 20, saturating 99% on room air. GENERAL: The patient is lying in bed, in no acute distress. Alert and oriented x4. CARDIOVASCULAR: Regular rate and rhythm. RESPIRATORY: Clear to auscultation bilaterally. ABDOMEN: Hypoactive bowel sounds. Soft, nondistended. Tenderness to palpation in the midepigastric and periumbilical regions. EXTREMITIES: No cyanosis, clubbing, or edema. LABORATORY DATA: No current studies are available for review. IMAGING DATA: No current studies are available for review. ASSESSMENT AND PLAN: 1. Metastatic disease with lymphadenopathy. The patient is presenting with multiple masses in the chest with severe hilar lymphadenopathy in addition to 2 poorly enhancing masses within the pancreas concerning for either lung or pancreatic primary malignancy. Bronchoscopy showed a large lung mass with obstruction of the right upper lobe with biopsy still pending at this time. Based on this finding, the likelihood of a lung primary source is high. 2. Acute pancreatitis. The patient initially presented with increased midepigastric abdominal pain and elevated lipase consistent with acute pancreatitis. However, an imaging on admission and further imaging during the course of this hospitalization has not been consistent with acute pancreatitis and the patient continues to have fairly significant abdominal pain despite adequate treatment for his pancreatitis. In addition to his physical exam which is up until this point has shown that his pain has been out of proportion to physical exam. At this time, the likelihood of acute pancreatitis is less with the elevated lipase on admission and during the course of this admission, most likely due to either the metastatic disease of the pancreas or pancreatic primary itself. RECOMMENDATIONS: 1. Follow up on the biopsy results from bronchoscopy. 2. Pain control per primary team. 3. Continue clear liquid diet and advance as tolerated. We will continue PPN until tolerating an adequately sufficient diet. 4. Continue naloxegol 25 mg daily. 5. Trending of lipase is unnecessary as it does not portend severity of disease or determine prognosis. At this time, we have no new additional recommendations and we will sign off at this time. Please call with any additional questions. Job ID: [id number]
[2020-07-16] MEDS: Sodium Acetate 2 mEq/ml 20 MEQ, Sodium Chloride 15 MEQ, Potassium ACETATE 10 MEQ, Potas... IV SCH ×2 (03:34→23:43)
[2020-07-16] MEDS: HYDROmorphone 10 mg/100 ml CADD IVPB PRN ×2 (06:28→18:03)
[2020-07-16] MEDS: Pantoprazole 40 MG VIAL IVP SCH (08:08)
--- NOTE | 2020-07-16 09:17 | PRG ---
DATE OF SERVICE: 07/16/2020 SUBJECTIVE: The patient is doing poorly in terms of pain control. He complains about everything. OBJECTIVE: VITAL SIGNS: Temperature 98.2, pulse 85, respirations 16, saturating 98%. HEENT: Remarkable. NECK: No adenopathy, JVD. LUNGS: Clear. CARDIAC: S1 and S2. Regular. ABDOMEN: Mildly tender to palpation. EXTREMITIES: No edema. ASSESSMENT: Likely metastatic lung cancer-awaiting biopsy results. PLAN: Hopefully biopsy results will be back later today. Job ID: [id number]
--- NOTE | 2020-07-16 12:18 | PDOC.HOSPP ---
- Subjective Encounter Date: 07/16/20 Encounter Time: 12:15 Subjective: f/u for lung/pancreatic/adrenal masses suspected metastatic process awaiting biopsy results for dispo planning. Pt c/o to nursing about pain being worse while receiving increased doses on Dilaudid HEATER ROOM HELPER. Nursing reports pt is pressing HEATER ROOM HELPER every 10min but has been noted lethargic on multiple assessments. - Objective Vital Signs & Weight: Vital Signs (12 hours) Temp Pulse Resp BP BP Pulse Ox 07/16/20 12:11 98.0 F 76 16 109/67 98 07/16/20 08:00 98 07/16/20 07:13 98.2 F 75 16 91/52 L 98 07/16/20 04:00 98.4 F 73 20 146/76 H 97 07/16/20 00:24 70 150/70 H 96 Weight Admit Weight 144 lb 8 oz Weight 144 lb 8 oz I&O: 07/15/20 07/16/20 07/17/20 06:59 06:59 06:59 Intake Total 2210 360 Balance 2210 360 Result Diagrams: 07/13/20 05:34 07/13/20 05:34 Additional Labs: Laboratory Tests 07/08/20 07/08/20 07/09/20 15:32 20:20 04:56 Lipase 745 H 630 H COVID-19 PCR Not Detected 07/10/20 07/11/20 07/12/20 05:28 05:39 05:15 Lipase 270 H 491 H 727 H COVID-19 PCR 07/13/20 05:34 Lipase 572 H COVID-19 PCR Hospitalist ROS - Medication Medications: Active Medications Generic Name Dose Route Start Last Admin Trade Name Freq PRN Reason Stop Dose Admin Hydromorphone HCl 0 mg 07/15/20 11:39 07/16/20 06:28 Dilaudid Cadd IVPB 10 mg INF PRN Administration Pain Promethazine HCl 25 mg/ Sodium 51 mls @ 102 mls/hr 07/09/20 08:28 07/15/20 11 :21 Chloride IVPB 51 mls Q6H PRN Administration Nausea Sodium Acetate 20 meq/ Sodium 1,037.0141 mls @ 100 mls/hr 07/16/20 03:00 06/27 03:34 Chloride 15 meq/ Potassium IV 1,037.0141 mls Acetate 10 meq/ Potassium INF DEVANTE Administration Phosphate 15 mmol/ Calcium Gluconate 4.5 meq/ Magnesium Sulfate 5 meq/ Amino Acids/ Dextrose Melatonin 3 mg 07/11/20 18:22 07/11/20 22:01 Melatonin PO 3 mg HS PRN Administration Insomnia Miscellaneous Medication 25 mg 07/14/20 07:30 07/16/20 09:35 Movantik PO 25 mg DAILY-AC DEVANTE Administration Nicotine 14 mg 07/08/20 21:00 07/15/20 20:53 Nicoderm Patch TD 14 mg Q24HR DEVANTE Administration Ondansetron HCl 4 mg 07/08/20 18:57 07/10/20 05:56 Zofran Odt PO 4 mg Q6H PRN Administration Nausea/Vomiting Ondansetron HCl 4 mg 07/14/20 11:59 07/15/20 04:07 Zofran IVP 4 mg Q6H PRN Administration Nausea/Vomiting Pantoprazole Sodium 40 mg 07/11/20 09:00 07/16/20 08:08 Protonix IVP 40 mg DAILY DEVANTE Administration - Exam General Appearance: ill appearing Eye: PERRL, anicteric sclera ENT: normocephalic atraumatic, no oropharyngeal lesions Neck: supple, symmetric, no JVD, no thyromegaly Heart: RRR, no murmur, no gallops, no rubs, normal peripheral pulses Heart - other findings: S1, S2 Respiratory: no wheezes, no ronchi Respiratory - other findings: inspiratory stridor on R Gastrointestinal: soft, non-distended, normal bowel sounds, no palpable masses, tender to palpation Extremities: no cyanosis, no clubbing, no edema Skin: normal turgor, no lesions Neurological: cranial nerve grossly intact, no new deficit Musculoskeletal: normal tone, normal strength Psychiatric: A&O x 3, flat affect Hosp A/P (1) Acute pancreatitis Code(s): K85.90 - ACUTE PANCREATITIS WITHOUT NECROSIS OR INFECTION, UNSP Status: Acute Plan: Likely related to multiple masses infiltrating the pancreas, supportive mgmt, await bx results for dx (2) Mass of right lung Code(s): R91.8 - OTHER NONSPECIFIC ABNORMAL FINDING OF LUNG FIELD Status: Acute Plan: s/p biopsy with pathology pending currently (3) Chronic pain syndrome Code(s): G89.4 - CHRONIC PAIN SYNDROME Status: Chronic Plan: Requiring high-dose narcotics with HEATER ROOM HELPER (4) Tobacco abuse Code(s): Z72.0 - TOBACCO USE Status: Chronic - Plan PT/OT, social media manager, out of bed/ambulate, DVT proph w/SCDs Consults: Palliative Care Stable currently HEATER ROOM HELPER pump for pain control, currently receiving Dilaudid, ? home regimen NPO status to continue Continue PPN Trial Regular diet, pt willing to attempt Await lung mass biopsy results Palliative care consult, ? hospice OOB with PT
[2020-07-16] MEDS: Nicotine 14 MG PATCH TD SCH (20:03)
--- NOTE | 2020-07-16 20:46 | CON ---
DATE OF CONSULTATION: REASON FOR CONSULT: Small cell lung cancer. HISTORY OF PRESENT ILLNESS: Mr. Nunez is a 60-year-old gentleman with a past medical history of chronic pain, who is under the care of Dr. Lafleur. He presented to the emergency room with abdominal discomfort. He started with abdominal pain, made worse by oral intake. He underwent a CT scan of the chest, abdomen, and pelvis. There was a 3.2 x 2.9 precarinal lymph node. There was a 5.5 x 1.8 cm subcarinal lymph node. He had mediastinal and right hilar lymphadenopathy. He had multiple nodules in the right lung, the largest mass was in the superior segment of the right lower lobe measuring 3.1 x 1.4 cm. There was extension of the right hilar lymphadenopathy into the medial right upper lobe parenchyma. He had bilateral adrenal masses consistent with metastatic disease. He underwent bronchoscopy by Dr. Cotto and it was positive for small cell lung cancer. The patient has been on a fentanyl pump since arrival for pain and despite the pump, he has had poorly controlled abdominal discomfort. He has been on PPN for pain associated with oral intake. The patient was seen at bedside. He does have a history of smoking. He complains of pain at this time. PAST MEDICAL HISTORY: 1. Peptic ulcer disease. 2. Peripheral neuropathy. PAST SURGICAL HISTORY: Multiple orthopedic surgeries including hip replacement, knee replacement, shoulder replacement, back surgery and spinal fusion. ALLERGIES: NO KNOWN DRUG ALLERGIES. HOME MEDICATIONS: 1. Gabapentin. 2. Hysingla ER. 3. Tizanidine HCL t.i.d. FAMILY HISTORY: Grandmother had cancer. SOCIAL HISTORY: Current long-time smoker. Drinks socially. No illicit drug use. Lives with his mother in [place]. REVIEW OF SYSTEMS: A 10-point review of systems is negative except for noted in HPI. PHYSICAL EXAMINATION: VITAL SIGNS: Temperature is 98.0, pulse is 76, respiratory rate 16, BP is 109/67. He is 98% on room air. GENERAL: This is a well-developed, well-nourished male, in no acute distress. HEENT: Normocephalic, atraumatic. Pupils are equal and reactive to light. He has poor dentition. NECK: Supple. CV: Regular rate and rhythm. LUNGS: Clear anterior. ABDOMEN: Mildly tender to palpation in the left lower quadrant. EXTREMITIES: No clubbing or cyanosis. SKIN: No rash. HEMATOLOGICAL: No petechiae or purpura. NEUROLOGICAL: Nonfocal. PERTINENT LABORATORY DATA AND X-RAYS: Current WBCs are 10.7, hemoglobin 12.2, hematocrit 38.3, platelet count 307,000, 70% neutrophils, and 20% lymphocytes. Sodium 136, potassium 4.1, chloride 102, CO2 is 27, BUN is 17, creatinine 0.78, calcium 8.9, phosphorus 3.7, magnesium 2.1, bilirubin 0.2, AST 16, ALT is less than 7, alkaline phosphatase is 77. Serum total protein is 6.9, albumin 3.5, globulin 3.4, and lipase is 884. Covid-19 negative. Radiology per HPI. ASSESSMENT: 1. Extensive stage small cell lung cancer. 2. Figoc-kh-wrdicni pain. 3. Pancreatitis, likely secondary to malignancy. DISCUSSION: The patient needs a brain MRI for full staging. We will get that scheduled for tomorrow. We discussed prognosis and treatment. I think given the fact that he is on PPN and large doses of pain medication that inpatient chemotherapy may palliate some of the symptoms and he would be able to be discharged home. He states his pain is still poorly controlled despite the MILKER MACHINE pump. He is a long-term narcotic user. He may need some long-acting medication such as MS Contin, but I will defer to Anesthesia and Pain Management as he sees Dr. Lafleur in the outpatient setting. Thank you for the consult. I have discussed this with Dr. Dean and we will follow along. Job ID: [id number]
[2020-07-17] MEDS: HYDROmorphone 10 mg/100 ml CADD IVPB PRN ×2 (06:13→14:52)
[2020-07-17] MEDS: Pantoprazole 40 MG VIAL IVP SCH (08:28)
--- NOTE | 2020-07-17 09:36 | MRI ---
MRI BRAIN WITH AND WITHOUT IV CONTRAST: HISTORY: Small cell lung cancer and concern for brain metastasis. FINDINGS: There are multiple enhancing lesions in the cerebral and cerebellar hemispheres bilaterally (complete ly enhancing and some with complete enhancement and others with peripheral enhancement) consistent wi th metastatic disease. A small enhancing lesion is noted in the frontal horn. There are multiple foci of T2 prolongation in the periventricular white matter consistent with chroni c small-vessel ischemic disease. The ventricular size is appropriate and the basilar cisterns are pa tent. No evidence of acute infarct, hemorrhage, midline shift, or abnormal extraaxial fluid collecti ons are seen. The visualized paranasal sinuses and mastoid air cells are well aerated. IMPRESSION: Findings are consistent with multiple supra- and infratentorial brain metastases. POS: OFF
--- NOTE | 2020-07-17 10:47 | PDOC.MOPN ---
Interval History: Pt c/o continued severe pain up to 8/10 in his abdomen. Says his COPY WORKER pump doesn' t work right and his pain is completely uncontrolled, he can't sleep, can't eat because of the pain. He c/o the TV in his room having poor programming. Denies SOB or cough, HAs, dizziness. - Vital Signs Vital Signs: Vital Signs (12 hours) Temp Pulse Resp BP BP Pulse Ox 07/17/20 07:10 98.4 F 68 18 132/78 97 07/17/20 04:26 98.1 F 76 16 106/70 96 07/16/20 23:59 97.6 F 79 18 123/71 97 Weight Admit Weight 144 lb 8 oz Weight 144 lb 8 oz - Physical Exam General: Alert, Oriented x3, Mild distress Lungs: Normal air movement Cardiovascular: Regular rate Abdomen: Other (clutching abdomen, sitting up hunched over the bed) Neurological: Cranial nerves 3-12 NL - Labs Result Diagrams: 07/13/20 05:34 07/13/20 05:34 A/P - Problem (1) Small cell lung cancer Current Visit: Yes Code(s): C34.90 - MALIGNANT NEOPLASM OF UNSP PART OF UNSP BRONCHUS OR LUNG Status: Acute (2) Brain metastases Current Visit: Yes Code(s): C79.31 - SECONDARY MALIGNANT NEOPLASM OF BRAIN Status: Acute - Plan Plan: Extensive-stage small cell lung cancer with mets to brain, adrenals, pancreas Pt requires both chemotherapy and WBRT, however he is asymptomatic from his brain mets so would prefer initial chemotherapy Plan Carboplatin + VP16 D1-3, repeat q3wk x 4 cycles - add Tecentriq as outpatient mediport consult Dr. Lafleur to assist with pain control
--- NOTE | 2020-07-17 18:08 | PDOC.HOSPP ---
- Subjective Encounter Date: 07/17/20 Encounter Time: 18:00 Subjective: f/u for widely metastatic SCC lung CA with plans for initial chemotherapy and WBRT. Remains on FINISH PRODUCTION MANAGER pump but states it doesn't help much. - Objective Vital Signs & Weight: Vital Signs (12 hours) Temp Pulse Resp BP BP Pulse Ox 07/17/20 16:15 98 07/17/20 12:00 97.9 F 76 18 123/62 97 07/17/20 11:20 97.9 F 76 18 123/62 97 07/17/20 07:10 98.4 F 68 18 132/78 97 Weight Admit Weight 144 lb 8 oz Weight 144 lb 8 oz I&O: 07/16/20 07/17/20 07/18/20 06:59 06:59 06:59 Intake Total 2210 960 240 Balance 2210 960 240 Result Diagrams: 07/13/20 05:34 07/13/20 05:34 Additional Labs: Laboratory Tests 07/08/20 07/08/20 07/09/20 15:32 20:20 04:56 Lipase 745 H 630 H COVID-19 PCR Not Detected 07/10/20 07/11/20 07/12/20 05:28 05:39 05:15 Lipase 270 H 491 H 727 H COVID-19 PCR 07/13/20 05:34 Lipase 572 H COVID-19 PCR Radiology Reviewed by me: Yes (MRI brain - multiple metastases) Hospitalist ROS - Medication Medications: Active Medications Generic Name Dose Route Start Last Admin Trade Name Freq PRN Reason Stop Dose Admin Hydromorphone HCl 0 mg 07/15/20 11:39 07/17/20 14:52 Dilaudid Cadd IVPB 10 mg INF PRN Administration Pain Promethazine HCl 25 mg/ Sodium 51 mls @ 102 mls/hr 07/09/20 08:28 07/15/20 11 :21 Chloride IVPB 51 mls Q6H PRN Administration Nausea Melatonin 3 mg 07/11/20 18:22 07/11/20 22:01 Melatonin PO 3 mg HS PRN Administration Insomnia Miscellaneous Medication 25 mg 07/14/20 07:30 07/17/20 08:27 Movantik PO 25 mg DAILY-AC DEVANTE Administration Nicotine 14 mg 07/08/20 21:00 07/16/20 20:03 Nicoderm Patch TD 14 mg Q24HR DEVANTE Administration Ondansetron HCl 4 mg 07/08/20 18:57 07/10/20 05:56 Zofran Odt PO 4 mg Q6H PRN Administration Nausea/Vomiting Ondansetron HCl 4 mg 07/14/20 11:59 07/15/20 04:07 Zofran IVP 4 mg Q6H PRN Administration Nausea/Vomiting Pantoprazole Sodium 40 mg 07/11/20 09:00 07/17/20 08:28 Protonix IVP 40 mg DAILY DEVANTE Administration - Exam General Appearance: ill appearing Eye: PERRL, anicteric sclera ENT: normocephalic atraumatic, no oropharyngeal lesions Neck: supple, symmetric, no JVD, no thyromegaly Heart: RRR, no gallops, no rubs, normal peripheral pulses Heart - other findings: S1, S2 Respiratory: CTAB, no rales, no ronchi, normal chest expansion Gastrointestinal: soft, non-distended, normal bowel sounds, no hepatomegaly Extremities: no cyanosis, no clubbing Skin: normal turgor Neurological: cranial nerve grossly intact, no new deficit Musculoskeletal: normal tone, generalized weakness Psychiatric: A&O x 3, flat affect, somnolent Hosp A/P (1) Small cell lung cancer Code(s): C34.90 - MALIGNANT NEOPLASM OF UNSP PART OF UNSP BRONCHUS OR LUNG Status: Acute Plan: Widely metastatic SCC, plan for chemotherapy, pain control as indicated, likely will need Hospice evaluation (2) Brain metastases Code(s): C79.31 - SECONDARY MALIGNANT NEOPLASM OF BRAIN Status: Acute (3) Acute pancreatitis Code(s): K85.90 - ACUTE PANCREATITIS WITHOUT NECROSIS OR INFECTION, UNSP Status: Acute Plan: Likely due to SCC metastases, supportive, fat-restrictive diet (4) Mass of right lung Code(s): R91.8 - OTHER NONSPECIFIC ABNORMAL FINDING OF LUNG FIELD Status: Acute Plan: SCC confirmed by bx (5) Chronic pain syndrome Code(s): G89.4 - CHRONIC PAIN SYNDROME Status: Chronic Plan: FINISH PRODUCTION MANAGER with Dilaudid, Pain mgmt, likely will need Hospice (6) Tobacco abuse Code(s): Z72.0 - TOBACCO USE Status: Chronic - Plan Stable currently FINISH PRODUCTION MANAGER pump for pain control, currently receiving Dilaudid, ? home regimen Clear liquids/Ensure Continue PPN Trial Regular diet, pt willing to attempt Await lung mass biopsy results Palliative care consult, ? hospice OOB with PT
[2020-07-17] MEDS: Nicotine 14 MG PATCH TD SCH (20:30)
[2020-07-17] MEDS ORDERED: HYDROmorphone 0.5 MG/0.5 ML SYRINGE SLOW IVP PRN ×2 (22:29→22:30)
[2020-07-17] MEDS: D5W-AA 4.25% with LYTES 1,000 ML IV SCH (22:36)
[2020-07-18] MEDS: HYDROmorphone 10 mg/100 ml CADD IVPB PRN ×2 (02:26→11:35)
[2020-07-18] MEDS ORDERED: Dexamethasone 10 MG in Sodium Chloride 0.9% 50 ML IVPB SCH (08:00)
[2020-07-18] MEDS ORDERED: Palonosetron HCl 0.25 MG in Sodium Chloride 0.9% 50 ML IVPB SCH (08:00)
[2020-07-18] MEDS ORDERED: SODIUM CHLORIDE 0.9% IVPB SCH ×2 (08:00)
[2020-07-18] MEDS ORDERED: ETOPOSIDE IVPB SCH (08:00)
[2020-07-18] MEDS ORDERED: CARBOPLATIN IVPB SCH (08:00)
[2020-07-18] MEDS ORDERED: Fentanyl 100 MCG/2 ML VIAL ONE ×3 (08:19→08:53)
[2020-07-18] MEDS ORDERED: Lidocaine 1% w/Epinephrine 1:100K 20 ML VIAL ONE (08:32)
[2020-07-18] MEDS ORDERED: Bupivacaine 0.25% HCL 30 ML VIAL ONE (08:32)
[2020-07-18] MEDS ORDERED: Sodium Chloride 0.9% 20 ML ONE (08:34)
[2020-07-18] MEDS ORDERED: PROPOFOL 60 ML ONE (08:42)
[2020-07-18] MEDS ORDERED: Promethazine HCl 25 MG/ML VIAL IM PRN (09:51)
[2020-07-18] MEDS ORDERED: Ondansetron HCl/PF 4 MG/2 ML Vial IVP PRN (09:51)
[2020-07-18] MEDS ORDERED: Promethazine HCl 25 MG/ML VIAL SLOW IVP PRN (09:51)
[2020-07-18] MEDS ORDERED: Lidocaine 1% PF 5 ML VIAL ONE (09:54)
[2020-07-18] MEDS ORDERED: PROPOFOL 200 MG/20 ML VIAL ONE (09:54)
--- NOTE | 2020-07-18 10:26 | OP ---
DATE OF PROCEDURE: 07/18/2020 PREOPERATIVE DIAGNOSIS: Metastatic lung carcinoma. POSTOPERATIVE DIAGNOSIS: Metastatic lung carcinoma. PROCEDURE PERFORMED: Placement of low-profile left subclavian MediPort. ANESTHESIA: Monitored anesthesia care and local. INDICATIONS FOR PROCEDURE: This is a 60-year-old man with history of chronic tobacco abuse, recently diagnosed with metastatic lung carcinoma. I was asked to place Port-A-Cath for chemotherapy. DESCRIPTION OF PROCEDURE: Informed consent was obtained from the patient, who was brought to the operating room and placed in supine position. Following monitored anesthesia care, left chest wall was sterilely prepped and draped in usual fashion. The skin below the left clavicle was anesthetized with 1% lidocaine. The left subclavian vein was cannulated using an 18-gauge introducer needle returning dark venous blood. A guidewire was passed through the needle and advanced into the left subclavian vein without resistance. Proper placement of the guidewire was confirmed by fluoroscopy. The needle was withdrawn over the guidewire. A stab incision was made adjacent to the guidewire using 11 scalpel. Dilator and introducer sheath were advanced as a unit over the guidewire and placed in the left subclavian vein without resistance. The dilator and the guidewire were removed as a unit leaving the introducer sheath in place. Through this, an 8.5-Kinyarwanda Deltec catheter was advanced through this introducer sheath and placed in the left subclavian vein without resistance. The introducer sheath was peeled away. The catheter was then fashioned to length under direct fluoroscopy. The subcutaneous pocket was raised below the insertion site after an incision was made using 15 scalpel. The skin having been adequately infiltrated with 0.25% Marcaine with epinephrine. A tunneler was then connected to the distal end of the catheter, which was pulled through the subcutaneous pocket. This was then connected to the low-profile catheter and secured to the anterior chest wall using 3-0 Prolene suture. Proper sitting of the Port-A-Cath was confirmed by fluoroscopy. A Schroeder needle was then inserted into the well, aspirating dark venous blood freely. The well was then flushed first with saline followed by heparin. Subcutaneous tissues were approximated over the port using interrupted sutures of 3-0 Vicryl. Both stab incision and the incision over the port were individually closed using 4-0 Monocryl suture in subcuticular fashion. Dermabond was applied over incisional closure. The patient tolerated the procedure without any apparent complication and total fluoroscopy time was 10 seconds. Portable chest x-ray was obtained confirming proper placement and no pneumothorax present. Job ID: [id number]
--- NOTE | 2020-07-18 10:43 | PDOC.MOPN ---
Interval History: Mediport this am. He is frustrated, wants more meds for pain. - Vital Signs Vital Signs: Vital Signs (12 hours) Temp Pulse Resp BP BP Pulse Ox 07/18/20 10:28 98.5 F 105 H 18 126/64 96 07/18/20 03:36 98.3 F 77 16 124/61 98 07/17/20 23:29 98.2 F 76 16 150/70 H 99 Weight Admit Weight 144 lb 8 oz Weight 144 lb 7.996 oz - Physical Exam General: Alert HEENT: Atraumatic Lungs: Clear to auscultation Cardiovascular: Regular rate Abdomen: Normal bowel sounds Neurological: Normal speech - Labs Result Diagrams: 07/13/20 05:34 07/13/20 05:34 Status: lab reviewed by me A/P - Problem (1) Brain metastases Current Visit: Yes Code(s): C79.31 - SECONDARY MALIGNANT NEOPLASM OF BRAIN Status: Acute (2) Small cell lung cancer Current Visit: Yes Code(s): C34.90 - MALIGNANT NEOPLASM OF UNSP PART OF UNSP BRONCHUS OR LUNG Status: Acute (3) Chronic pain syndrome Current Visit: Yes Code(s): G89.4 - CHRONIC PAIN SYNDROME Status: Chronic - Plan Plan: Extensive-stage small cell lung cancer with mets to brain, adrenals, pancreas Pt requires both chemotherapy and WBRT, however he is asymptomatic from his brain mets so would prefer initial chemotherapy Plan Carboplatin + VP16 D1-3, repeat q3wk x 4 cycles - add Tecentriq as outpatient Dr. Lafleur consulted for pain management
--- NOTE | 2020-07-18 11:34 | RAD ---
Frontal radiograph chest: 07/18/2020 COMPARISON: 07/08/2020 HISTORY: Status post right Port-A-Cath, assess for pneumothorax FINDINGS: There is a left CT injectable Port-A-Cath, distal tip overlying the cavoatrial junction. Th ere is a 6 cm right hilar mass. There is a mass inferior to the right hilum suspicious for a parenchymal mass measuring in the 1.9 cm range. No pneumothorax or pleural fluid. No focal consolidat ion or alveolar edema. IMPRESSION: No pneumothorax. 6 cm right hilar mass consistent with malignancy. Right infrahilar mass noted as well.
[2020-07-18] MEDS: Pantoprazole 40 MG VIAL IVP SCH (11:35)
[2020-07-18] MEDS: Morphine 4 MG/ML VIAL SLOW IVP PRN ×4 (13:13→20:07)
[2020-07-18] MEDS: D5W-AA 4.25% with LYTES 1,000 ML IV SCH (14:07)
[2020-07-18] MEDS: METHadone HCl 10 MG TAB PO SCH ×2 (14:40→20:06)
--- NOTE | 2020-07-18 17:33 | PDOC.HOSPP ---
- Subjective Encounter Date: 07/18/20 Encounter Time: 17:15 Subjective: f/u for metastatic SCLC with pancreatic/adrenal/brain involvement. Mediport placed today and chemotherapy initiated today. Remains concerned about his pain medications and regimen. - Objective Vital Signs & Weight: Vital Signs (12 hours) Temp Pulse Resp BP BP Pulse Ox 07/18/20 16:00 97.8 F 89 18 136/76 96 07/18/20 12:00 98.1 F 89 18 128/58 L 96 07/18/20 10:28 98.5 F 105 H 18 126/64 96 Weight Admit Weight 144 lb 8 oz Weight 144 lb 7.996 oz I&O: 07/17/20 07/18/20 07/19/20 06:59 06:59 06:59 Intake Total 960 240 Output Total 1360 Balance 960 240 -1360 Result Diagrams: 07/13/20 05:34 07/13/20 05:34 Additional Labs: Laboratory Tests 07/08/20 07/08/20 07/09/20 15:32 20:20 04:56 Lipase 745 H 630 H COVID-19 PCR Not Detected 07/10/20 07/11/20 07/12/20 05:28 05:39 05:15 Lipase 270 H 491 H 727 H COVID-19 PCR 07/13/20 05:34 Lipase 572 H COVID-19 PCR Hospitalist ROS - Medication Medications: Active Medications Generic Name Dose Route Start Last Admin Trade Name Freq PRN Reason Stop Dose Admin Promethazine HCl 25 mg/ Sodium 51 mls @ 102 mls/hr 07/09/20 08:28 07/15/20 11 :21 Chloride IVPB 51 mls Q6H PRN Administration Nausea Amino Acids/Electrolytes/Dextrose 1,000 mls @ 100 mls/hr 07/17/20 09:15 07/18 14:07 Clinimix E 4.25/5 IV 1,000 mls INF DEVANTE Administration Palonosetron 0.25 mg/ Sodium 55 mls @ 165 mls/hr 07/18/20 08:00 07/18/20 12: 50 Chloride IVPB 07/18/20 23:00 55 mls WILLCALL DEVANTE Administration Carboplatin 580 mg/ Sodium 308 mls @ 410.667 mls/hr 07/18/20 08:00 07/18/20 13:31 Chloride IVPB 07/18/20 23:59 308 mls WILLCALL DEVANTE Administration Dexamethasone Sodium Phosphate 51 mls @ 153 mls/hr 07/18/20 07:45 07/18/20 13 :13 10 mg/ Sodium Chloride IVPB 07/18/20 23:00 51 mls WILLCALL DEVANTE Administration Etoposide 180 mg/ Sodium 509 mls @ 509 mls/hr 07/18/20 08:00 07/18/20 13:32 Chloride IVPB 07/20/20 23:00 509 mls WILLCALL DEVANTE Administration Melatonin 3 mg 07/11/20 18:22 07/11/20 22:01 Melatonin PO 3 mg HS PRN Administration Insomnia Methadone HCl 10 mg 07/18/20 15:00 07/18/20 14:40 Dolophine Hcl PO 10 mg TID DEVANTE Administration Miscellaneous Medication 25 mg 07/14/20 07:30 07/18/20 11:35 Movantik PO 25 mg DAILY-AC DEVANTE Administration Morphine Sulfate 4 mg 07/18/20 12:50 07/18/20 14:48 Morphine SLOW IVP 4 mg Q2H PRN Administration BREAKTHRU PAIN Nicotine 14 mg 07/08/20 21:00 07/17/20 20:30 Nicoderm Patch TD 14 mg Q24HR DEVANTE Administration Ondansetron HCl 4 mg 07/08/20 18:57 07/10/20 05:56 Zofran Odt PO 4 mg Q6H PRN Administration Nausea/Vomiting Ondansetron HCl 4 mg 07/14/20 11:59 07/15/20 04:07 Zofran IVP 4 mg Q6H PRN Administration Nausea/Vomiting Pantoprazole Sodium 40 mg 07/11/20 09:00 07/18/20 11:35 Protonix IVP 40 mg DAILY DEVANTE Administration - Exam General Appearance: ill appearing General - other findings: responsive to questions Eye: PERRL, anicteric sclera ENT: normocephalic atraumatic, no oropharyngeal lesions Neck: supple, symmetric, no JVD, no thyromegaly Heart: RRR, no murmur, no gallops, no rubs, normal peripheral pulses Heart - other findings: S1, S2 Respiratory: no tachypnea Respiratory - other findings: occ stridor/wheeze R chest Gastrointestinal: soft, non-distended, normal bowel sounds, no palpable masses Extremities: no cyanosis, no clubbing, no edema Skin: normal turgor, no lesions Neurological: cranial nerve grossly intact, no new deficit Musculoskeletal: generalized weakness Psychiatric: A&O x 3, flat affect, somnolent, lethargic Hosp A/P (1) Small cell lung cancer Code(s): C34.90 - MALIGNANT NEOPLASM OF UNSP PART OF UNSP BRONCHUS OR LUNG Status: Acute Plan: Diffuse metastatic process, chemotherapy started today, likely will need to consider hospice care (2) Brain metastases Code(s): C79.31 - SECONDARY MALIGNANT NEOPLASM OF BRAIN Status: Acute Plan: See above, may need WBRT (3) Acute pancreatitis Code(s): K85.90 - ACUTE PANCREATITIS WITHOUT NECROSIS OR INFECTION, UNSP Status: Acute (4) Mass of right lung Code(s): R91.8 - OTHER NONSPECIFIC ABNORMAL FINDING OF LUNG FIELD Status: Acute (5) Chronic pain syndrome Code(s): G89.4 - CHRONIC PAIN SYNDROME Status: Chronic Plan: Pain control difficult given narcotic dependence history, Pain mgmt service following (6) Tobacco abuse Code(s): Z72.0 - TOBACCO USE Status: Chronic - Plan social service assistant, DVT proph w/SCDs Consults: Palliative Care Stable currently Continue Methadone/Morphine/Klonopin, likely will need additional titration for d/c Clear liquids/Ensure Continue PPN Trial Regular diet, pt willing to attempt Initiated chemotherapy today CM consult for dispo planning, ? SNF vs HH options Palliative care consult, ? hospice OOB with PT
[2020-07-18] MEDS: clonazePAM 0.5 MG TAB PO SCH (20:06)
[2020-07-18] MEDS: Nicotine 14 MG PATCH TD SCH (20:08)
[2020-07-19] MEDS: D5W-AA 4.25% with LYTES 1,000 ML IV SCH (00:33)
[2020-07-19] MEDS: Morphine 4 MG/ML VIAL SLOW IVP PRN ×3 (06:27→22:27)
[2020-07-19] MEDS: Pantoprazole 40 MG VIAL IVP SCH (09:05)
[2020-07-19] MEDS: clonazePAM 0.5 MG TAB PO SCH ×2 (09:05→20:32)
[2020-07-19] MEDS: METHadone HCl 10 MG TAB PO SCH ×3 (09:22→20:31)
--- NOTE | 2020-07-19 10:33 | CON ---
DATE OF CONSULTATION: 07/18/2020 REASON FOR CONSULTATION: Pain management. HISTORY OF PRESENT ILLNESS: Mr. Nunez is a 60-year-old male followed at our Pain Management outpatient clinic for chronic pain, cervical spondylosis, and lumbar spondylosis, who is status post fusions in the past, who has been on chronic narcotic therapy for greater than 4 years for his pain. He recently presented to the emergency room at [facility] on 07/08/2020 via EMS with complaint of abdominal pain for the past 2 months, which had significantly progressed in the last 3 or 4 days prior to admission. He was evaluated in the emergency room and admitted. He has undergone lung biopsy and further workup and has been diagnosed with extensive stage small cell cancer with metastatic disease to his brain, adrenals, and pancreas. Oncology has seen the patient and plan of care is for initiation of chemotherapy and WBRT starting with this hospitalization. He is having severe pain secondary to his new diagnosis. He remains on a Dilaudid LAPEL BASTER with uncontrolled pain currently. We have been consulted to help manage his pain and convert his medication regimen to facilitate discharge home. The patient is seen today in his bed on the oncology floor, he complains of severe abdominal pain that radiates across the left epigastric area, the pain is a 10/ 10, described as a sharp, radiating pain radiating from the epigastric area towards the thoracic spine. The pain is constant, aggravated with any type of movement, eating, or physical activity whatsoever. He hurts at rest. He complains of intermittent headaches as well as pain throughout his whole body. He is taking liquids by mouth, but reports a poor appetite. He is currently getting Dilaudid LAPEL BASTER approximately 18 mg per 24 hours and requesting for more breakthrough pain medications. He is not taking any oral medications for pain. PAST MEDICAL HISTORY: Chronic pain, lumbar and cervical spondylosis, status post cervical and lumbar fusions, neuropathy, anxiety. PAST SURGICAL HISTORY: Include a left total hip replacement for fracture, cervical fusion, lumbar fusion, right rotator cuff repair, left knee, and hernia surgery. MEDICATIONS AT HOME: 1. For pain were Hysingla 60 mg tablet one p.o. daily extended release. 2. [place] 10 b.i.d. for breakthrough pain. CURRENT MEDICATIONS: Reviewed via JAN. ALLERGIES: NO KNOWN DRUG ALLERGIES. SOCIAL HISTORY: History of smoking for the past 15 years and continues to smoke , alcohol use socially. Denies any illicit drug use. The patient lives in [place] with his mother, he is a . FAMILY HISTORY: Contributory for cancer with his grandmother. His father and mother are still living. REVIEW OF SYSTEMS: 10-point review of systems did not show any other pertinent positives or negatives other than what is noted above in HPI. PHYSICAL EXAMINATION: VITAL SIGNS: Temperature is 98.1, heart rate 89, respirations 18, blood pressure is 128/58. GENERAL: The patient is alert, oriented x3, he is lying in bed, and appears to be in fhnqrgsw-[id number]-ritpis pain, eyes closed. HEENT: Normocephalic, atraumatic. NECK: Supple. Symmetric. No adenopathy. CV: Shows normal S1 and S2. Regular rate and rhythm. CHEST: Normal lung expansion bilaterally. ABDOMEN: Soft, tenderness to the left upper quadrant with palpation, no distention, active bowel sounds. EXTREMITIES: Moving all extremities against gravity while in bed, no peripheral edema appreciated. ASSESSMENT AND PLAN: 1. Small-cell lung cancer with metastatic disease to brain, pancreas, and adrenals. 2. Wxeny-qp-ryewusy pain. 3. Anxiety. A 60-year-old male with history of cervical and lumbar pain that is chronic, who has been on narcotic medications for greater than 4 years for his chronic pain. He was admitted to the emergency room with abdominal pain following a diagnosis with extensive small-cell carcinoma with metastatic disease to his brain, pancreas, and adrenals, who has been evaluated by Oncology and planning to start chemotherapy and radiation while hospitalized. He has been placed on a Dilaudid LAPEL BASTER for severe pain, which is currently not controlling his pain. Current LAPEL BASTER is not effective. Our plan is to discontinue his LAPEL BASTER, we will start methadone at 10 mg one p.o. t.i.d. and allow for morphine 2 mg IV push q.4 hours for breakthrough pain if needed. Plan to add Movantik 25 mg one p.o. q.a.m. for opioid-induced constipation. We will add clonazepam 0.5 mg b.i.d. for anxiety as well as history of chronic pain. We will plan for a splanchnic block in the a.m. with Dr. Lafleur to try to help control his severe abdominal pain secondary to his pancreatic disease involvement. Plan to follow as needed. Goal to discontinue all IV medications and convert to oral medications in preparation for discharge home. Job ID: [id number] CINTIA
--- NOTE | 2020-07-19 12:55 | OP ---
DATE OF PROCEDURE: 07/19/2020 PROCEDURE PERFORMED: Splanchnic nerve block. SUMMARY OF PROCEDURE: The patient was taken to the procedure room, placed prone on the procedure room table after informed consent was obtained. We anesthetized the patient with 4 mg of Versed IV. A time-out was performed. We cleansed the back with ChloraPrep and sterile drapes were applied. We used fluoroscopy to locate the T12 vertebral body. We infiltrated the skin with lidocaine 2% and used a 22-gauge 5-inch spinal needle that was inserted through the anesthetized skin and advanced under left oblique guidance just under the transverse process of T11 at the edge of the vertebral body. We numbed the patient with 2% lidocaine as we advanced the needle. We advanced with AP, oblique, and lateral views to confirm that the needle lay approximately in the anterior 1/3 of the T12 vertebral body. This was confirmed in AP and lateral views. A 5 mL of Omnipaque was injected through the needle after negative aspiration and appropriate spread was noted. There was no contrast infiltrating the lungs or vasculature. Then, 10 mL of Marcaine 0.25% with dexamethasone 10 mg was injected slowly over the course of 5 minutes taking care to look at his blood pressure every 1 minute, which did not change. We then took the needle out. Bandages were applied, and the patient was taken to Recovery under stable condition. Job ID: [id number]
[2020-07-19] MEDS ORDERED: Bupivacaine 0.25% 10 ML VIAL ONE (15:09)
[2020-07-19] MEDS ORDERED: Iopamidol-M 300 61% 15 ML VIAL ONE (15:09)
[2020-07-19] MEDS ORDERED: Lidocaine 2% PF 5 ML VIAL ONE (15:09)
[2020-07-19] MEDS ORDERED: Dexamethasone 10 MG/ML VIAL ONE (15:09)
[2020-07-19] MEDS ORDERED: Midazolam HCl 2 mg/2 ml Vial ONE (15:09)
--- NOTE | 2020-07-19 15:59 | PDOC.MOPN ---
Interval History: pain much better today, slept well. - Vital Signs Vital Signs: Vital Signs (12 hours) Temp Pulse Resp BP BP Pulse Ox 07/19/20 12:25 98.0 F 81 18 108/60 96 07/19/20 12:00 98.0 F 81 18 108/60 96 07/19/20 08:00 98.6 F 78 18 107/59 L 96 Weight Admit Weight 144 lb 8 oz Weight 144 lb 7.996 oz - Physical Exam General: Alert, Oriented x3, No acute distress HEENT: Atraumatic, PERRLA, EOMI, Mucous membr. moist/pink Lungs: Clear to auscultation, Normal air movement Cardiovascular: Regular rate, Normal S1, Normal S2, No murmurs, Gallops, Rubs Abdomen: Normal bowel sounds, Soft, No tenderness, No hepatospenomegaly, No masses Neurological: Normal speech - Labs Result Diagrams: 07/13/20 05:34 07/13/20 05:34 Status: lab reviewed by me A/P - Problem (1) Brain metastases Current Visit: Yes Code(s): C79.31 - SECONDARY MALIGNANT NEOPLASM OF BRAIN Status: Acute (2) Small cell lung cancer Current Visit: Yes Code(s): C34.90 - MALIGNANT NEOPLASM OF UNSP PART OF UNSP BRONCHUS OR LUNG Status: Acute (3) Chronic pain syndrome Current Visit: Yes Code(s): G89.4 - CHRONIC PAIN SYNDROME Status: Chronic - Plan Plan: C1D2 chemo completed mediport in place nerve block successful this am
--- NOTE | 2020-07-19 16:25 | PDOC.HOSPP ---
- Subjective Encounter Date: 07/19/20 Encounter Time: 16:25 Subjective: f/u for metastatic SCLC with brain/pancreatic/adrenal involvement. Pain much improved with Methadone/Klonopin/Splanchnic nerve block. Appetite improving. - Objective Vital Signs & Weight: Vital Signs (12 hours) Temp Pulse Resp BP BP Pulse Ox 07/19/20 12:25 98.0 F 81 18 108/60 96 07/19/20 12:00 98.0 F 81 18 108/60 96 07/19/20 08:00 98.6 F 78 18 107/59 L 96 Weight Admit Weight 144 lb 8 oz Weight 144 lb 7.996 oz I&O: 07/18/20 07/19/20 07/20/20 06:59 06:59 06:59 Intake Total 240 3357 Output Total 1360 Balance 240 1996 Result Diagrams: 07/13/20 05:34 07/13/20 05:34 Additional Labs: Laboratory Tests 07/08/20 07/08/20 07/09/20 15:32 20:20 04:56 Lipase 745 H 630 H COVID-19 PCR Not Detected 07/10/20 07/11/20 07/12/20 05:28 05:39 05:15 Lipase 270 H 491 H 727 H COVID-19 PCR 07/13/20 05:34 Lipase 572 H COVID-19 PCR Hospitalist ROS - Medication Medications: Active Medications Generic Name Dose Route Start Last Admin Trade Name Freq PRN Reason Stop Dose Admin Clonazepam 0.5 mg 07/18/20 21:00 07/19/20 09:05 Klonopin PO 0.5 mg BID DEVANTE Administration Promethazine HCl 25 mg/ Sodium 51 mls @ 102 mls/hr 07/09/20 08:28 07/15/20 11 :21 Chloride IVPB 51 mls Q6H PRN Administration Nausea Amino Acids/Electrolytes/Dextrose 1,000 mls @ 100 mls/hr 07/17/20 09:15 07/19 00:33 Clinimix E 4.25/5 IV 1,000 mls INF DEVANTE Administration Etoposide 180 mg/ Sodium 509 mls @ 509 mls/hr 07/18/20 08:00 07/19/20 12:27 Chloride IVPB 07/20/20 23:00 509 mls WILLCALL DEVANTE Administration Melatonin 3 mg 07/11/20 18:22 07/11/20 22:01 Melatonin PO 3 mg HS PRN Administration Insomnia Methadone HCl 10 mg 07/18/20 15:00 07/19/20 15:05 Dolophine Hcl PO 10 mg TID DEVANTE Administration Miscellaneous Medication 25 mg 07/19/20 09:00 07/19/20 12:46 Movantik PO 25 mg DAILY DEVANTE Administration Morphine Sulfate 4 mg 07/18/20 12:50 07/19/20 06:27 Morphine SLOW IVP 4 mg Q2H PRN Administration BREAKTHRU PAIN Nicotine 14 mg 07/08/20 21:00 07/18/20 20:08 Nicoderm Patch TD 14 mg Q24HR DEVANTE Administration Ondansetron HCl 4 mg 07/08/20 18:57 07/10/20 05:56 Zofran Odt PO 4 mg Q6H PRN Administration Nausea/Vomiting Ondansetron HCl 4 mg 07/14/20 11:59 07/15/20 04:07 Zofran IVP 4 mg Q6H PRN Administration Nausea/Vomiting Pantoprazole Sodium 40 mg 07/11/20 09:00 07/19/20 09:05 Protonix IVP 40 mg DAILY DEVANTE Administration Sodium Chloride 10 ml 07/08/20 18:57 07/19/20 06:27 Flush - Normal Saline IVF 10 ml PRN PRN Administration Saline Flush - Exam General Appearance: NAD, awake alert Eye: PERRL, anicteric sclera ENT: normocephalic atraumatic, no oropharyngeal lesions Neck: supple, symmetric, no JVD, no thyromegaly, no lymphadenopathy Heart: RRR, no murmur, no gallops, no rubs, normal peripheral pulses Heart - other findings: S1, S2 Respiratory: no ronchi, no tachypnea Respiratory - other findings: stridor of R chest Gastrointestinal: soft, non-distended, normal bowel sounds, no palpable masses Extremities: no cyanosis, no clubbing, no edema Skin: normal turgor, no lesions Neurological: cranial nerve grossly intact, no new deficit Musculoskeletal: generalized weakness Psychiatric: A&O x 3, flat affect Hosp A/P (1) Small cell lung cancer Code(s): C34.90 - MALIGNANT NEOPLASM OF UNSP PART OF UNSP BRONCHUS OR LUNG Status: Acute Plan: Currently undergoing Day #2 of chemotherapy, continue protocol per medical oncology, likely can transition to outpt follow up in 48h (2) Brain metastases Code(s): C79.31 - SECONDARY MALIGNANT NEOPLASM OF BRAIN Status: Acute (3) Acute pancreatitis Code(s): K85.90 - ACUTE PANCREATITIS WITHOUT NECROSIS OR INFECTION, UNSP Status: Acute Plan: Suspect elevated Lipase due to metastatic process (4) Mass of right lung Code(s): R91.8 - OTHER NONSPECIFIC ABNORMAL FINDING OF LUNG FIELD Status: Acute Plan: SCLC confirmed by biospy (5) Chronic pain syndrome Code(s): G89.4 - CHRONIC PAIN SYNDROME Status: Chronic Plan: Pain overall improved, continue Methadone/Klonopin/Morphine Sulfate IV PRN/ Splanchnic nerve block (6) Tobacco abuse Code(s): Z72.0 - TOBACCO USE Status: Chronic - Plan social studies teacher, out of bed/ambulate, DVT proph w/SCDs Consults: Palliative Care Stable currently Continue Methadone/Morphine/Klonopin s/p Splanchnic nerve block with Marcaine/Dexamethasone 07/19/20 Clear liquids/Ensure D/C PPN Trial Regular diet, pt willing to attempt Continue chemotherapy per medical oncology CM consult for dispo planning, ? SNF vs options Palliative care consult, ? hospice OOB with PT
[2020-07-19] MEDS: Nicotine 14 MG PATCH TD SCH (20:31)
[2020-07-20] MEDS: Morphine 4 MG/ML VIAL SLOW IVP PRN ×3 (02:35→21:01)
[2020-07-20] MEDS ORDERED: PEGFILGRASTIM-JMDB 6 MG/0.6 ML SYRINGE SQ SCH (08:00)
[2020-07-20] MEDS: METHadone HCl 10 MG TAB PO SCH ×3 (09:21→20:50)
[2020-07-20] MEDS: clonazePAM 0.5 MG TAB PO SCH ×2 (09:22→20:50)
[2020-07-20] MEDS: Pantoprazole 40 MG VIAL IVP SCH (09:22)
--- NOTE | 2020-07-20 14:17 | PDOC.MOPN ---
Interval History: C1D3 of chemo, feeling much better with no pain currently, eating more, still w/ o a BM. Denies N/V, fevers. - Vital Signs Vital Signs: Vital Signs (12 hours) Temp Pulse Resp BP Pulse Ox 07/20/20 08:00 98.4 F 83 18 122/54 L 97 Weight Admit Weight 144 lb 8 oz Weight 144 lb 7.996 oz - Physical Exam General: Alert, Oriented x3, Cooperative HEENT: EOMI Lungs: Normal air movement Cardiovascular: Regular rate Abdomen: Soft, No tenderness Neurological: Cranial nerves 3-12 NL Psych/Mental Status: Mood NL - Labs Result Diagrams: 07/13/20 05:34 07/13/20 05:34 A/P - Problem (1) Small cell lung cancer Current Visit: Yes Code(s): C34.90 - MALIGNANT NEOPLASM OF UNSP PART OF UNSP BRONCHUS OR LUNG Status: Acute (2) Brain metastases Current Visit: Yes Code(s): C79.31 - SECONDARY MALIGNANT NEOPLASM OF BRAIN Status: Acute - Plan Plan: Complete chemo today, Neulasta tomorrow Cont pain regimen as per Dr. Lafleur - currently very well controlled DC home tomorrow or Wednesday if pt has a good oral pain regimen and f/u with me in clinic for cycle 2 of chemo
--- NOTE | 2020-07-20 17:19 | PDOC.HOSPP ---
- Subjective Encounter Date: 07/20/20 Encounter Time: 08:00 Subjective: no overnight events. This morning, pain better controlled, 01/15, which is close to baseline per patient, and requesting to be discharged. - Objective Vital Signs & Weight: Vital Signs (12 hours) Temp Pulse Resp BP Pulse Ox 07/20/20 08:00 98.4 F 83 18 122/54 L 97 Weight Admit Weight 144 lb 8 oz Weight 144 lb 7.996 oz I&O: 07/19/20 07/20/20 07/21/20 06:59 06:59 06:59 Intake Total 3357 2710 Output Total 1360 Balance 1996 2709 Result Diagrams: 07/13/20 05:34 07/13/20 05:34 Hospitalist ROS - Review of Systems Constitutional: denies: chills, sweats Respiratory: denies: cough, shortness of breath, pleuritic pain Cardiovascular: denies: chest pain, palpitations, orthopnea Gastrointestinal: reports: abdominal pain (improved). denies: nausea, vomiting , diarrhea, constipation, melena, hematochezia Genitourinary: denies: dysuria, frequency, hematuria - Medication Medications: Active Medications Generic Name Dose Route Start Last Admin Trade Name Freq PRN Reason Stop Dose Admin Clonazepam 0.5 mg 07/18/20 21:00 07/20/20 09:22 Klonopin PO 0.5 mg BID DEVANTE Administration Promethazine HCl 25 mg/ Sodium 51 mls @ 102 mls/hr 07/09/20 08:28 07/15/20 11 :21 Chloride IVPB 51 mls Q6H PRN Administration Nausea Etoposide 180 mg/ Sodium 509 mls @ 509 mls/hr 07/18/20 08:00 07/20/20 14:32 Chloride IVPB 07/20/20 23:00 509 mls WILLCALL DEVANTE Administration Melatonin 3 mg 07/11/20 18:22 07/11/20 22:01 Melatonin PO 3 mg HS PRN Administration Insomnia Methadone HCl 10 mg 07/18/20 15:00 07/20/20 09:21 Dolophine Hcl PO 10 mg TID DEVANTE Administration Miscellaneous Medication 25 mg 07/19/20 09:00 07/20/20 10:20 Movantik PO 25 mg DAILY DEVANTE Administration Morphine Sulfate 4 mg 07/18/20 12:50 07/20/20 09:20 Morphine SLOW IVP 4 mg Q2H PRN Administration BREAKTHRU PAIN Nicotine 14 mg 07/08/20 21:00 07/19/20 20:31 Nicoderm Patch TD 14 mg Q24HR DEVANTE Administration Ondansetron HCl 4 mg 07/08/20 18:57 07/10/20 05:56 Zofran Odt PO 4 mg Q6H PRN Administration Nausea/Vomiting Ondansetron HCl 4 mg 07/14/20 11:59 07/15/20 04:07 Zofran IVP 4 mg Q6H PRN Administration Nausea/Vomiting Pantoprazole Sodium 40 mg 07/11/20 09:00 07/20/20 09:22 Protonix IVP 40 mg DAILY DEVANTE Administration Senna/Docusate Sodium 2 tab 07/08/20 18:57 07/20/20 11:38 Senokot S PO 2 tab BID PRN Administration Constipation Sodium Chloride 10 ml 07/08/20 18:57 07/20/20 02:35 Flush - Normal Saline IVF 10 ml PRN PRN Administration Saline Flush - Exam General Appearance: NAD, awake alert General - other findings: ambulating in room ENT: moist mucosa Neck: no JVD Heart: RRR, no murmur, no gallops, no rubs Respiratory: CTAB, no wheezes, no rales, no ronchi Gastrointestinal: soft, non-tender, non-distended, normal bowel sounds Extremities: no edema Neurological: cranial nerve grossly intact, normal sensation to touch Musculoskeletal: normal tone, normal strength Psychiatric: normal affect, normal behavior, A&O x 3 Hosp A/P - Plan #SCLC with brain, intraabdominal metasteses Pain well controlled s/p Splanchnic nerve block with Marcaine/Dexamethasone 07/19 and pain regimen modifications tolerating regular diet completed first cycle of chemo patient requesting to go back home because has to care for sick mother; considering pending cancer treatment, SNF preferable; pending CM evaluation Full code ELOS: 2-3 nights pending placement
[2020-07-20] MEDS ORDERED: Polyethylene Glycol 3350 17 GM Packet PO SCH (17:45)
[2020-07-20] MEDS: Nicotine 14 MG PATCH TD SCH (20:50)
[2020-07-20] MEDS ORDERED: Senokot S 8.6-50 MG TAB PO SCH (21:00)
[2020-07-21 05:38] LABS: #Basophils 0.1 thou/uL (0.0-0.2); #Eosinphils 0.4 thou/uL (0.0-0.7); #Lymphocytes 4.2 thou/uL (1.20-3.40); #Monocytes 0.2 thou/uL (0.11-0.59); #Neutrophils 6.1 thou/uL (1.40-6.50); %Eosinophils 3.4 % (0.0-10.0); %Lymphocytes 38.2 % (21.0-51.0); %Monocytes 1.7 % (0.0-10.0); %Neutrophils 55.7 % (42.0-75.0); Hemoglobin 12.2 g/dL (14.0-18.0); Mean Corpuscular HGB CONC 32.6 g/dL (32.0-36.0); Mean Corpuscular Hemoglobin 29.3 pg (27.0-31.0); Mean Corpuscular Volume 90.1 fL (78.0-98.0); Platelet Count 370 thou/uL (130-400); RBC Distribution Width 13.8 % (11.5-14.5); Red Blood Cell (RBC) Count 4.18 mill/uL (4.70-6.10); White Blood Cell (WBC) Count 10.9 thou/uL (4.8-10.8)
[2020-07-21] MEDS: Morphine 4 MG/ML VIAL SLOW IVP PRN (05:41)
[2020-07-21 06:02] LABS: Anion Gap 13 mmol/L (10-20); BUN (Urea Nitrogen) 24 mg/dL (8.4-25.7); Calc. Creatinine Clearance 90 mL/min (70-130); Calcium 8.8 mg/dL (7.8-10.44); Carbon Dioxide 27 mmol/L (23-31); Chloride 101 mmol/L (98-107); Estimated GFR-MDRD Greater than 90; Glucose 103 mg/dL (80-115); Magnesium 2.2 mg/dL (1.6-2.6); Potassium 4.2 mmol/L (3.5-5.1); Sodium 137 mmol/L (136-145)
[2020-07-21] MEDS ORDERED: PEGFILGRASTIM-JMDB 6 MG/0.6 ML SYRINGE SQ SCH (07:30)
[2020-07-21 08:32] VITALS: BP 102/54; TEMP 98
[2020-07-21] MEDS ORDERED: Polyethylene Glycol 3350 17 GM Packet PO SCH (09:00)
[2020-07-21] MEDS: clonazePAM 0.5 MG TAB PO SCH (09:11)
[2020-07-21] MEDS: METHadone HCl 10 MG TAB PO SCH ×2 (09:11→14:49)
[2020-07-21] MEDS: Pantoprazole 40 MG VIAL IVP SCH (09:13)
--- NOTE | 2020-07-21 12:11 | PDOC.HOSPP ---
- Subjective Encounter Date: 07/21/20 Encounter Time: 09:00 Subjective: overnight, had 3 bowel movements. This morning, feeling well and pain well controlled. Complains of diarrhea and having to stay. Otherwise no complaints. - Objective Vital Signs & Weight: Vital Signs (12 hours) Temp Pulse Resp BP Pulse Ox 07/21/20 08:00 94 L 07/21/20 07:25 98.0 F 79 18 102/54 L 94 L Weight Admit Weight 144 lb 8 oz Weight 144 lb 7.996 oz I&O: 07/20/20 07/21/20 07/22/20 06:59 06:59 06:59 Intake Total 2710 680 Output Total 850 Balance 2710 -170 Result Diagrams: 07/21/20 05:30 07/21/20 05:30 Hospitalist ROS - Review of Systems Constitutional: denies: chills, sweats Respiratory: denies: cough, shortness of breath Cardiovascular: denies: chest pain, palpitations Gastrointestinal: reports: diarrhea. denies: nausea, vomiting, abdominal pain Genitourinary: denies: dysuria, frequency, hematuria - Medication Medications: Active Medications Generic Name Dose Route Start Last Admin Trade Name Freq PRN Reason Stop Dose Admin Clonazepam 0.5 mg 07/18/20 21:00 07/21/20 09:11 Klonopin PO 0.5 mg BID DEVANTE Administration Promethazine HCl 25 mg/ Sodium 51 mls @ 102 mls/hr 07/09/20 08:28 07/15/20 11 :21 Chloride IVPB 51 mls Q6H PRN Administration Nausea Melatonin 3 mg 07/11/20 18:22 07/11/20 22:01 Melatonin PO 3 mg HS PRN Administration Insomnia Methadone HCl 10 mg 07/18/20 15:00 07/21/20 09:11 Dolophine Hcl PO 10 mg TID DEVANTE Administration Morphine Sulfate 4 mg 07/18/20 12:50 07/21/20 05:41 Morphine SLOW IVP 4 mg Q2H PRN Administration BREAKTHRU PAIN Nicotine 14 mg 07/08/20 21:00 07/20/20 20:50 Nicoderm Patch TD 14 mg Q24HR DEVANTE Administration Ondansetron HCl 4 mg 07/08/20 18:57 07/10/20 05:56 Zofran Odt PO 4 mg Q6H PRN Administration Nausea/Vomiting Ondansetron HCl 4 mg 07/14/20 11:59 07/15/20 04:07 Zofran IVP 4 mg Q6H PRN Administration Nausea/Vomiting Pantoprazole Sodium 40 mg 07/11/20 09:00 07/21/20 09:13 Protonix IVP 40 mg DAILY DEVANTE Administration Sodium Chloride 10 ml 07/08/20 18:57 07/20/20 02:35 Flush - Normal Saline IVF 10 ml PRN PRN Administration Saline Flush - Exam General Appearance: NAD, awake alert Neck: no JVD Heart: RRR, no murmur, no gallops, no rubs Respiratory: CTAB, no wheezes, no rales, no ronchi Gastrointestinal: soft, non-tender, non-distended, normal bowel sounds Extremities: no edema Psychiatric: normal affect, normal behavior, A&O x 3 Hosp A/P - Plan #SCLC with brain, intraabdominal metasteses Pain well controlled s/p Splanchnic nerve block with Marcaine/Dexamethasone 07/19 and pain regimen modifications; 12mg breakthrough IV morphine in past 24 hr ; defer to pain service tolerating regular diet completed first cycle of chemo #constipation -had 3 BMs -reduced Naloxegol to 12.5mg PO daily Full code ELOS: 1-2 nights pending pain, oncology clearance
--- NOTE | 2020-07-22 18:09 | DIS ---
DATE OF ADMISSION: 07/08/2020 DATE OF DISCHARGE: 07/21/2020 HOSPITAL COURSE: Mr. Nunez is a 60-year-old male with medical history of duodenal ulcers, who presented with abdominal pain for 2 months. He was diagnosed with small cell lung cancer based on biopsy carried out by bronchoscopy with metastasis to the pancreas, bilateral adrenal glands and brain. Oncology was consulted and they started the patient on chemo and Neulasta. The patient presented with elevated lipase. GI was consulted and deemed the pain to be likely due to the pancreatic masses rather than acute pancreatitis. Pain Management Team was consulted and carried out the splanchnic nerve block after which the patient was started on methadone and morphine for breakthrough pain. Prior to discharge, the patient's IV morphine was converted to equivalent p.o. doses. The patient was discharged with minimal to no pain, Followup appointments with his pain physician. For continued oncologic care, the patient opted to continue care at [facility]. PHYSICAL EXAMINATION: VITAL SIGNS: Blood pressure 102/54, pulse 79, respiratory rate 18, oxygen saturation 94% on room air, and temperature 98.0 Fahrenheit. GENERAL: Lying comfortably in bed. Awake and alert. HEENT: Normocephalic, atraumatic. PERRL. NECK: No JVD. HEART: Regular rate and rhythm. No murmurs, gallops, or rubs. RESPIRATORY: Clear to auscultation bilaterally. No wheezing, rales, or rhonchi. GASTROINTESTINAL: Soft, nontender, and nondistended. Normal bowel sounds. EXTREMITIES: No edema. PSYCHIATRIC: Normal behavior, flat affect, alert and oriented x3. MEDICATION LIST: New medications: 1. Morphine IR tab 50 mg p.o. q.4 hours p.r.n. breakthrough pain based on conversion from IV dosage. 2. Benadryl 24 mg p.o. q.3 hours p.r.n. itching. 3. Melatonin 3 mg p.o. at bedtime p.r.n. insomnia. 4. Methadone 10 mg p.o. t.i.d. 5. Naloxegol (Movantik) to 12.5 mg p.o. daily. Continued medications: 1. Gabapentin. 2. Tizanidine. Discontinued medications: Hydrocodone. Modified medications: No modified medications. Job ID: [id number]
--- NOTE | 2020-07-23 05:12 | PQF ---
Dear : Migel Rucker Date : 07/23/20 Please exercise your independent, professional judgment in responding to the clarification form. Clinical indicators are provided on the bottom of this form for your review Can you please further clarify if Acute pancreatitis is ruled in or ruled out? Acute pancreatitis [ ] Ruled in diagnosis [ ] Continue to treat [ ] Resolved [ x] Ruled out diagnosis [ ] Improving [ ] Cannot rule out diagnosis [ ] Other diagnosis [ ] Unable to determine Physician Signature: Date/Time: For continuity of documentation, please document condition throughout progress notes and discharge summary. Thank You. To be completed by CDI/Coding staff for physician review: Present Clinical Indicators - Signs / Symptoms / Labs Results and Location in Medical Record [ x ] Abdominal pain x2 months H and P pg.3 [ x ] Acute pancreatitis H and P pg.5 [ x ] Examined for abdominal pain with elevated lipase/ acute pancreatitis Hospiatlist PN pg.3 07/09 [ x ] He has a grossly elevated lipase above 600. He is currently treated for pancreatitis Consult pg.1 Dr. Cotto [ x ] Pancreatic mass, likely cancerous Consult pg.2 Dr. Cotto [ x ] Lipase elevated to over 700 on admission, but CT did not shows any findings of pancreatitis Consult pg.2 [ x ] GI was consulted and deemed the pain to be likely due to pancreatic masses rather than acute pancreatitis Ds pg.1 [ x ] Lipase: 07/0865=151 /87=955 07/1299=162 07/1621=660 Labs 07/08 Present Risk Factors Results and Location in Medical Record [ x ] smoker H and P pg.3 [ x ] Peripheral neuropathy H and P pg.5 [ x ] Lung cancer with metastatic to brain, pancreas and adrenal gland Consult pg.2 Dr. Carias [ x ] 60 years old male HP 07/08 Present Treatments Results and Location in Medical Record [ x ] IV fluids MAR [ x ] Splanchnic nerve block OP report 911 [ x ] IV Morphine MAR [ x ] GI Consult Dr. Wilson 07/09 [ x ] Abdomen ultrasound 07/09 [ x ] Chest/ Abdomen/pelvis CT 07/08 CDS/Ditch Digger Signature: Inderjit Sagastume Phone #: ext [phone] Date 9/15/20 This is a permanent part of the Medical Record [facility]
== END 2020-07-21 15:51 | disposition home or self-care (01) | DRG 167 ==
LOC: ERS 14:59 → T4-B 18:27 → ONC 07-17 15:48
PROVIDERS: ADMIT Student in an Organized Health Care Education/Training Program; ATTEND Student in an Organized Health Care Education/Training Program
PROC: 0BBC8ZX Excision of Right Upper Lung Lobe, Via Natural or Artificial Opening Endoscopic, Diagnostic (ICD-10-PCS; principal; 2020-07-12)
PROC: 0BDC8ZX Extraction of Right Upper Lung Lobe, Via Natural or Artificial Opening Endoscopic, Diagnostic (ICD-10-PCS; 2020-07-12)
PROC: 0JH60WZ Insertion of Totally Implantable Vascular Access Device into Chest Subcutaneous Tissue and Fascia, Open Approach (ICD-10-PCS; 2020-07-18)
PROC: 02HV33Z Insertion of Infusion Device into Superior Vena Cava, Percutaneous Approach (ICD-10-PCS; 2020-07-18)
PROC: B518ZZA Fluoroscopy of Superior Vena Cava, Guidance (ICD-10-PCS; 2020-07-18)
PROC: 3E0T3BZ Introduction of Anesthetic Agent into Peripheral Nerves and Plexi, Percutaneous Approach (ICD-10-PCS; 2020-07-19)
PROC: 3E0T33Z Introduction of Anti-inflammatory into Peripheral Nerves and Plexi, Percutaneous Approach (ICD-10-PCS; 2020-07-19)
PROC: BR161ZZ Fluoroscopy of Lumbar Facet Joint(s) using Low Osmolar Contrast (ICD-10-PCS; 2020-07-19)
DX: C34.11 Malignant neoplasm of upper lobe, right bronchus or lung (principal); C78.89 Secondary malignant neoplasm of other digestive organs; C79.72 Secondary malignant neoplasm of left adrenal gland; C79.71 Secondary malignant neoplasm of right adrenal gland; C79.31 Secondary malignant neoplasm of brain; E87.1 Hypo-osmolality and hyponatremia; Z20.828 Contact with and (suspected) exposure to other viral communicable diseases; Z96.642 Presence of left artificial hip joint; F41.9 Anxiety disorder, unspecified; F17.210 Nicotine dependence, cigarettes, uncomplicated; K26.9 Duodenal ulcer, unspecified as acute or chronic, without hemorrhage or perforation; G62.9 Polyneuropathy, unspecified; E86.0 Dehydration; G89.4 Chronic pain syndrome; R59.1 Generalized enlarged lymph nodes; M54.5 Low back pain; E83.39 Other disorders of phosphorus metabolism; Z79.899 Other long term (current) drug therapy; Z98.1 Arthrodesis status
CPT/HCPCS: 36415; 70553; 71045; 71260; 74177; 74183; 76000; 76705; 80048; 80053; 80061; 81001; 83690; 83735; 84100; 84484; 85025; 86301; 87635; 88112; 88305; 88313; 88341; 88342; 93005; 96374; 96375; A9579; C1788; C9113; J0690; J1100; J1170; J1642; J1650; J1885; J2060; J2250; J2270; J2405; J2469; J2550; J2704; J3010; J3475; J3480; J3490; J7030; J7050; J7620; J9045; J9181; Q0162; Q5108; Q9967; S0020; U0003

== ENCOUNTER 2020-09-04 11:11 | Outpatient (CLI) | payer MEDICARE ==
--- NOTE | 2020-09-04 12:48 | CT ---
EXAM: CT of the chest with contrast CT of the abdomen and pelvis with contrast HISTORY: Malignant neoplasm of the right bronchus and upper lobe of the lung COMPARISON: 07/13/2020, 07/08/2020 and MRI abdomen 07/09/2020 TECHNIQUE: 1. Multiple contiguous axial images were obtained in a CT the chest with contrast. Coronal and sagitt al reformats were performed. 2. Multiple contiguous axial images were obtained and a CT of the abdomen and pelvis with contrast. C oronal and sagittal reformats were performed. FINDINGS: CT CHEST: HEART: Normal in size. Calcifications in the coronary arteries. MEDIASTINUM: The previously seen enlarged right hilar and mediastinal lymph nodes have significantly decreased in size. The largest mediastinal lymph node measures 1.9 cm in greatest dimension in the pretracheal region. There is still persistent soft tissue density in the mediastinum and right hilar region. This causes slight narrowing of the right lung bronchi. There is slight soft tissue density fullness surrounding the aorta and adjacent to the left aspect of the mid thoracic spine, but this is much less prominent than on the prior exam. LUNGS: No focal infiltrates, nodules, or masses. PLEURAL SPACE: No pneumothorax or pleural effusion. CHEST WALL SOFT TISSUES: Left subclavian Mediport with its tip in the superior vena cava. CT ABDOMEN/PELVIS: ABDOMEN: LIVER: within normal limits. BILE DUCTS: Normal caliber common bile duct. Stable mild central intrahepatic biliary dilatation. GALLBLADDER: No calcified gallstones. Normal caliber wall. PANCREAS: within normal limits.The previously seen pancreatic masses are no longer visualized. SPLEEN: within normal limits. ADRENALS: within normal limits. The previously seen adrenal nodules are no longer present. The right adrenal gland measures 8 mm in thickness. KIDNEYS: Bilateral renal cysts measuring up to 2.6 cm in size. PELVIS: REPRODUCTIVE ORGANS: No pelvic masses. URETERS: within normal limits. BLADDER: within normal limits. PERITONEUM: No ascites or free air, no fluid collection. BOWEL: Normal caliber. MESENTERY AND RETROPERITONEUM: No enlarged mesenteric or retroperitoneal lymph nodes. VESSELS: Atherosclerotic calcifications. ABDOMINAL WALL: within normal limits. OSSEOUS STRUCTURES: The patient has a left hip prosthesis. There is sclerosis of the right superior p ubic ramus near the pubic symphysis. No other sclerotic lesions are seen in the skeleton. Degenerative changes and postsurgical changes are seen in the spine. IMPRESSION: 1. Improvement in hilar and mediastinal lymphadenopathy with nonspecific small amount of residual sof t tissue density in the right hilar region and mediastinum 2. Resolution of pancreatic masses 3. Resolution/near complete resolution of adrenal masses. There is still slight prominence of the rig ht adrenal gland that is not masslike. 4. Bilateral renal cysts 5. Sclerosis of the pelvic bone adjacent to the pubic symphysis. A bony metastasis cannot be excluded . Recommend correlation with whole-body bone scan.
== END 2020-09-04 11:12 | disposition home or self-care (01) ==
LOC: SCSCT 11:11
PROVIDERS: ATTEND Internal Medicine Hematology & Oncology
DX: C34.11 Malignant neoplasm of upper lobe, right bronchus or lung (principal); N28.1 Cyst of kidney, acquired; R59.0 Localized enlarged lymph nodes; K86.89 Other specified diseases of pancreas; M85.88 Other specified disorders of bone density and structure, other site
CPT/HCPCS: 71260; 74177

== ENCOUNTER 2020-09-07 14:15 | Inpatient (IN) | payer MEDICARE ==
[2020-09-07 14:50] LABS: Hemoglobin 14.4 g/dL (14.0-18.0); Mean Corpuscular HGB CONC 33.9 g/dL (32.0-36.0); Mean Corpuscular Hemoglobin 31.3 pg (27.0-31.0); Mean Corpuscular Volume 92.3 fL (78.0-98.0); Mean Platelet Volume 6.7 fL (7.4-10.4); Platelet Count 316 thou/uL (130-400); RBC Distribution Width 16.5 % (11.5-14.5); Red Blood Cell (RBC) Count 4.62 mill/uL (4.70-6.10); White Blood Cell (WBC) Count 22.6 thou/uL (4.8-10.8)
[2020-09-07] MEDS ORDERED: Lorazepam 2 MG/ML VIAL ONE ×2 (14:58→15:34)
[2020-09-07 15:07] LABS: Anisocytosis SLIGHT = 6-15 cells (100X) (0-5/hpf); Band 5 % (5-11); Lymphocytes 2 % (21-51); MDiff Complete? YES; Monocytes 2 % (0-10); Neutrophil 91 % (42-75); Platelet Morphology Comment Appears Adequate
[2020-09-07 15:10] LABS: ALT (SGPT) 25 U/L (8-55); AST (SGOT) 30 U/L (5-34); Albumin 2.9 g/dL (3.4-4.8); Alkaline Phosphatase 134 U/L (40-110); Anion Gap 14 mmol/L (10-20); BUN (Urea Nitrogen) 21 mg/dL (8.4-25.7); Bilirubin, Total 0.3 mg/dL (0.2-1.2); Calc. Creatinine Clearance 0 mL/min (70-130); Calcium 7.8 mg/dL (7.8-10.44); Carbon Dioxide 21 mmol/L (23-31); Chloride 107 mmol/L (98-107); Estimated GFR-MDRD Greater than 90; Globulin 3.2 g/dL (2.4-3.5); Glucose 113 mg/dL (80-115); Protein, Total 6.1 g/dL (5.8-8.1); Sodium 138 mmol/L (136-145)
[2020-09-07] MEDS ORDERED: Cefepime 2 GM VIAL ONE (15:55)
[2020-09-07] MEDS ORDERED: Vancomycin 1.5 GRAM/300 ML BAG 1.5 GM in Premix Bag 1 BAG IVPB SCH (16:00)
[2020-09-07] MEDS ORDERED: Gabapentin 300 MG CAP PO SCH (16:15)
[2020-09-07] MEDS ORDERED: diphenhydrAMINE 50 MG/ML VIAL ONE (16:38)
--- NOTE | 2020-09-07 16:41 | CT ---
CT BRAIN 09/07/20 PROVIDED CLINICAL HISTORY: Pancreatic cancer, tremor, history of metastasis to brain. FINDINGS: Comparison is made with the examination dated 12/25/14. Correlation is made with MRI of the brain dated 07/17/20. The ventricular system appears normal in size and morphology. There is no evidence for intracranial h emorrhage or mass effect. The extracranial soft tissues and osseous structures demonstrate an unremar kable CT appearance. IMPRESSION: No evidence for intracranial hemorrhage or mass effect. Metastatic disease is not apparent by noncont rast CT. POS: CURTIS
[2020-09-07 17:21] LABS: Acetaminophen Less than 6.0 mcg/mL (10.0-30.0); Alcohol Less than 10 mg/dL (Less than 10); Salicylate Less than 8.0 mg/dL (15.0-30.0)
--- NOTE | 2020-09-07 17:29 | RAD ---
PORTABLE CHEST: 09/07/20 PROVIDED CLINICAL HISTORY: Weakness. FINDINGS: Comparison is made with the study dated 07/18/20. Cardiac and mediastinal silhouette is within normal limits. Interval improvement in aeration of the right lung which now appears clear. Left subclavian i mplanted port is redemonstrated in similar position. There is no pleural fluid or pneumothorax appar ent. IMPRESSION: No evidence for an acute cardiopulmonary process. POS: CURTIS
[2020-09-07 17:33] LABS: Bilirubin Negative (Negative); Blood, Urine Negative (Negative); Clarity Clear (Clear); Glucose, Urine (Dipstick) Normal (Negative); Ketone, Urine Negative (Negative); Leukocyte Negative Leu/uL (Negative); Nitrite Negative (Negative); Protein, Urine (Dipstick) Negative (Neg-Trace); Specific Gravity, Urine 1.012 (1.002-1.036); Urobilinogen Normal mg/dL (Less than 2)
[2020-09-07 17:46] LABS: Amphetamine Not Detected (NotDetected); Barbiturates Screen Not Detected (NotDetected); Benzodiazepine Screen Detected (NotDetected); Cocaine Metabolite Screen Not Detected (NotDetected); Medtox Control Line Valid? VALID (VALID); Medtox Reader # READER 1; Methadone Detected (NotDetected); Methamphetamine Not Detected (NotDetected); Opiate Screen Detected (NotDetected); Oxycodone Screen Not Detected (NotDetected); Phencyclidine (PCP) Not Detected (NotDetected); THC/Cannabinoid Screen Not Detected (NotDetected); Tricyclic Screen Not Detected (NotDetected)
[2020-09-07] MEDS ORDERED: Morphine 4 MG/ML VIAL ONE (18:29)
--- NOTE | 2020-09-07 18:37 | PDOC.FPRHP ---
- History of Present Illness Chief Complaint: AMS History of Present Illness: This is a 60yo M with PMH significant for metastatic pancreatic cancer who presents today for AMS. His last chemotherapy was last Wednesday. Patient's mother present in the room, states that he has been very agitated throughout the day today. This started when he woke up this morning. He was constantly moving his arms and moving around the home. His mother states that today his mood seemed to change to more anger today. She says that otherwise he was talking with her and did not seem confused. Reports new tremor, shaking of arms and legs. She reports he was normal yesterday. Patient did complain about some pain in his lower stomach. Denies any NVD, chest pain, SOB, palpitations. Reports cough. Reports generalized weakness. He sees Dr. Castillo for his cancer. Denies fever, sick contacts. ED Course: morphine 4mg IV, benadryl 25mg IV, gabapentin 300mg oral, vanc 1.5g IV, cefepime 2g IV, 2mg lorazepam, 2000ml NaCl - Allergies/Adverse Reactions Allergies Allergy/AdvReac Type Severity Reaction Status Date / Time No Known Allergies Allergy Verified 09/07/20 19:54 - Home Medications Medication Instructions Recorded Confirmed Type Gabapentin 300 mg PO TID 12/25/14 09/07/20 History tiZANidine HCl [Tizanidine HCl] 4 mg PO TID 07/09/20 09/07/20 History METHadone HCl [Dolophine HCl] 10 mg PO TID #21 tab 07/21/20 09/07/20 Rx Melatonin 3 mg PO HS PRN #14 tab 07/21/20 09/07/20 Rx Morphine IR Tab 15 mg PO Q4HR PRN #24 tab 07/21/20 09/07/20 Rx Naloxegol Oxalate [Movantik] 12.5 mg PO DAILY #30 tab 07/21/20 Rx diphenhydrAMINE [Benadryl] 25 mg PO Q3H PRN #48 cap 07/21/20 09/07/20 Rx Morphine Sulfate 15 mg .ROUTE TID 09/07/20 09/07/20 History Ondansetron HCl [Zofran] 4 mg PO QID PRN 09/07/20 09/07/20 History Prochlorperazine Maleate 10 mg PO Q8H PRN 09/07/20 09/07/20 History [Compazine] - History PMHx: pancreatic cancer with mets to lung/brain, duodenal ulcer, anxiety PSHx: left hip replacement, b/l knee replacement, hernia repair, right shoulder, back L4-5,S1, neck fusion FHx: non contributory Social: Tobacco use - smoked 1/2 pack/day since age 12, drinks socially 1 x month, denies drug use - Review of Systems General: denies: fever/chills, weight/appetite/sleep changes, night sweats, fatigue Eyes: denies: vision changes ENT: denies: nasal congestion, rhinorrhea Respiratory: reports: cough, congestion. denies: shortness of breath, exercise intolerance Cardiovascular: denies: chest pain, palpitation, edema Gastrointestinal: denies: nausea, vomiting, diarrhea, constipation, abdominal pain Genitourinary: denies: dysuria Skin: denies: rashes, lesions Musculoskeletal: denies: pain, tenderness, stiffness, swelling Neurological: reports: weakness - Vital signs BP: 132/74, Pulse: 103, Resp: 22, Temp: 98.5 (Oral), Pain: 4, O2 sat: 98 on (Room Air), Time: 09/07/2020 18:55. Weight 59kg BP: 129/64, MAP: 85, Pulse: 112, Resp: 20, Temp: 99.0 (Oral), Pain: 0, O2 sat: 99 on (Room Air), Time: 09/07/2020 14:29 - Physical Exam Constitutional: NAD, awake, alert and oriented, other (cachectic) HEENT: normocephalic and atraumatic, EOMI, grossly normal vision, grossly normal hearing, other (dry mucous membranes) Neck: supple, FROM, trachea midline Heart: RRR, normal S1/S2, no murmurs/rubs/gallops, pulses present, no edema Lungs: CTAB, no respiratory distress, good air movement, no rales/rhonchi, no wheezing, no retractions Abdomen: soft, non-tender, bowel sounds present Musculoskeletal: normal structure, normal tone Neurological: no focal deficit Skin: no rash/lesions, good turgor, capillary refill <2 seconds Heme/Lymphatic: no unusual bruising or bleeding, no purpura, no petechia Psychiatric: other (Axox1, only oriented to self) FMR H&P: Results - Labs Result Diagrams: 09/08/20 02:08 09/07/20 14:36 Lab results: WBC 22.6 thou/uL (4.8-10.8) H 09/07/20 14:36 Hgb 14.4 g/dL (14.0-18.0) 09/07/20 14:36 Hct 42.6 % (42.0-52.0) 09/07/20 14:36 MCV 92.3 fL (78.0-98.0) 09/07/20 14:36 Plt Count 316 thou/uL (130-400) 09/07/20 14:36 Band Neuts % (Manual) 5 % (5-11) 09/07/20 14:36 Sodium 138 mmol/L (136-145) 09/07/20 14:36 Potassium 4.0 mmol/L (3.5-5.1) 09/07/20 14:36 Chloride 107 mmol/L (98-107) 09/07/20 14:36 Carbon Dioxide 21 mmol/L (23-31) L 09/07/20 14:36 BUN 21 mg/dL (8.4-25.7) 09/07/20 14:36 Creatinine 0.63 mg/dL (0.7-1.3) L 09/07/20 14:36 Glucose 113 mg/dL (80-115) 09/07/20 14:36 Lactic Acid 2.0 mmol/L (0.5-2.2) 09/07/20 14:36 Calcium 7.8 mg/dL (7.8-10.44) 09/07/20 14:36 Total Bilirubin 0.3 mg/dL (0.2-1.2) 09/07/20 14:36 AST 30 U/L (5-34) 09/07/20 14:36 ALT 25 U/L (8-55) 09/07/20 14:36 Alkaline Phosphatase 134 U/L (40-110) H 09/07/20 14:36 Ammonia 33 umol/L (18-72) 09/07/20 15:13 Serum Total Protein 6.1 g/dL (5.8-8.1) 09/07/20 14:36 Albumin 2.9 g/dL (3.4-4.8) L 09/07/20 14:36 Urine Ketones Negative mg/dL (Negative) 09/07/20 17:05 Urine Blood Negative (Negative) 09/07/20 17:05 Urine Nitrite Negative (Negative) 09/07/20 17:05 Ur Leukocyte Esterase Negative Tru/uL (Negative) 09/07/20 17:05 FMR H&P: A/P - Plan Encephalopathy Likely 2/2 Brain Mets from Pancreatic Cancer vs. Infectious etoliogy vs polypharmacy CT Brain non con - neg, no mets identified Brain MRI 07/17/2020 showed multiple supra- and infrantentorial brain metastases Patient on chemotherapy, sees Dr. Castillo, last chemo Wednesday09/04/2020 - will likely consult oncology in the am - will start Decadron due to brain mets as likely cause of AMS - CM, palliative care, PT/OT ordered - HIV/RPR/HepC ordered to r/o cause of AMS - will get updated med rec - IVFs @ 125, patient appeared dry - continue to monitor vitals, am labs SIRS, unknown etiology Met criteria with WBC 22, tachycardia Received vancomycin and cefepime in ED LA wnl, CXR neg, UA wnl - UCx and Blood Cx bending, procal pending - EKG and Troponin ordered d/t tachycardia - will continue empiric coverage with Vanc/Cefepime pending cultures - IVFs as above Cachexia likely 2/2 pancreatic cancer with mets to brain/lungs - consulted air launch weapons technician, CM, Palliative Care Hx Duodenal Ulcers - added pepcid for GI ppx Metastatic Pancreatic Cancer with mets to brain/lungs - see above - will hold altering home medications for now Dispo: admit to onc, inpatient Diet: NPO pending SS Code: DNAR, per mother at bedside patient has no / or children, she is next of kin, states that patient would not like resuscitation measures PCP: none Case discussed with Dr. Parmar who is in agreement with plan. FMR H&P: Upper Level - Plan Date/Time: 09/07/20 754 ISamantha MD, have evaluated this patient and agree with findings/plan as outlined by legal internship resident. Pertinent changes/additions are listed here. This is a 60yo M with PMH significant for metastatic pancreatic cancer who presents with CC of AMS. Mother is present on exam. Per mother's report, he was agitated since waking up this morning. She reports his agitation as walking around the home moving his arms and legs. She said he was not confused. He has h ad a cough, but no SOB, congestion. She denies fever or sick contacts. Denies chest pain, SOB, palpitations, abd pain, NVD, constipation. Mother reports he has decreased appetite and does not eat a lot. He last got chemo treatment on Wednesday. He sees Dr. Castillo for cancer treatment. He sees Dr. Pina for pain management. In the ER, the patient was given fluids, started on vanc/cefepime, lorazepam, and gabapentin. Exam was significant for cachectic appearing older than stated age M, otherwise neg. VS significant for tachycardia, otherwise normal. Labs significant for UDS for benzos. CT brain neg. CXR nml. Patient will be admitted to onc for encephalopathy 2/2 unknown etiology at this time - leading diagnosis brain mets vs medications. SIRs with unknown infectious source - tachy and elevated white count. Suspect medications as possible cause of encephalopathy- UDS pos for benzo, opiates. Will get trop, procal, HIV/RPR/HepC to r/o other causes. EKG to confirm sinus tachy, will get trop as well. CT brain neg for any neoplasm despite mother saying brain mets of pancreatic cancer. Previous MRI positive for mets. Will start on steroids. Currently on chemo. Patient moderately dehydrated on exam, will start IVF. Will consult air launch weapons technician. Will also consult onc in the AM. Will consult palliative care for advanced directives. Next of kin would be mother as his is and no children per mother. Per mother patient wishes to be DNAR. Dispo: admit to onc, inpatient Diet: NPO pending SS Code: DNAR - palliative care consulted Case to be discussed with Dr. Parmar. Addendum - Attending - Attending Attestation Date/Time: 09/08/20 1215 I personally evaluated the patient and discussed the management with Dr. Angelo/Jossue. I agree with the History, Examination, Assessment and Plan documented above with any addition or exceptions noted below. Patient with new encephalopathy in setting of known pancreatic CA with mets to brain. Concern for worsening metastatic disease versus infection. Cover with broad spectrum abx, await cultures. Decadron at least to start to see if that results in improvement. MRI to evaluate. Will discuss case with Oncology.
[2020-09-07] MEDS ORDERED: Lactated Ringer's 1,000 ML IV SCH (18:45)
[2020-09-07 20:22] LABS: Troponin I 0.073 ng/mL (< 0.028)
[2020-09-07] MEDS: Lactated Ringer's 1,000 ML IV SCH (21:04)
[2020-09-07] MEDS: Dexamethasone 4 MG in Sodium Chloride 0.9% 50 ML IVPB SCH (21:06)
[2020-09-07] MEDS: Famotidine 20 MG TAB PO SCH (21:14)
[2020-09-07 21:41] VITALS: BMI 19.5
[2020-09-07] MEDS ORDERED: Melatonin 3 MG TAB PO PRN (22:34)
[2020-09-07 23:27] LABS: Syphilis Antibody Nonreactive (Nonreactive); Syphilis Antibody Index 0.05 S/CO (<1.00 Non-Reactive)
[2020-09-07 23:29] LABS: HIV (1/2) Antibody/Antigen Non-Reactive (NonReactive); HIV 1/2 INDEX 0.07 S/CO (<1.00); Hep C IgG Ab Non-Reactive (NonReactive); Hep C Index 0.17 S/CO (0-0.79)
[2020-09-07 23:31] LABS: CKMB 2.1 ng/mL (0-6.6)
[2020-09-07] MEDS: Cefepime 2 GM in Sodium Chloride 0.9% 100 ML IVPB SCH (23:31)
[2020-09-08] MEDS ORDERED: Acetaminophen 325 MG TAB PO PRN (01:10)
[2020-09-08] MEDS ORDERED: Ondansetron PF 4 MG/2 ML Vial IVP PRN (01:11)
[2020-09-08] MEDS ORDERED: Morphine IR Tab 15 MG TAB PO SCH (01:15)
[2020-09-08] MEDS ORDERED: Ondansetron ODT 4 MG TAB PO PRN (01:16)
[2020-09-08 02:33] LABS: CKMB 2.3 ng/mL (0-6.6)
[2020-09-08 02:50] LABS: Band 10 % (5-11); Hemoglobin 9.1 g/dL (14.0-18.0); Hypochromia SLIGHT = 6-15 cells (100X) (0-5/hpf); Lymphocytes 2 % (21-51); MDiff Complete? YES; Mean Corpuscular HGB CONC 32.5 g/dL (32.0-36.0); Mean Corpuscular Hemoglobin 29.9 pg (27.0-31.0); Monocytes 1 % (0-10); Neutrophil 87 % (42-75); Platelet Count 614 thou/uL (130-400); Platelet Morphology Comment Appears Adequate; RBC Distribution Width 16.1 % (11.5-14.5); Red Blood Cell (RBC) Count 3.05 mill/uL (4.70-6.10); Toxic Granulation SLIGHT; White Blood Cell (WBC) Count 39.8 thou/uL (4.8-10.8)
[2020-09-08] MEDS: Dexamethasone 4 MG in Sodium Chloride 0.9% 50 ML IVPB SCH ×4 (03:31→21:02)
[2020-09-08] MEDS: Lactated Ringer's 1,000 ML IV SCH ×3 (03:34→21:06)
[2020-09-08] MEDS ORDERED: Prochlorperazine Maleate 5 MG TAB PO PRN (03:39)
[2020-09-08] MEDS ORDERED: Morphine IR Tab 15 MG TAB PO PRN (03:52)
[2020-09-08] MEDS ORDERED: Vancomycin 1.5 GRAM/300 ML BAG 1.5 GM in Premix Bag 1 BAG IVPB SCH (04:00)
[2020-09-08] MEDS: Vancomycin HCl 1.25 GM in Sodium Chloride 0.9% 250 ML 250 ML IVPB SCH ×2 (04:02→17:17)
[2020-09-08 05:42] LABS: Troponin I 0.056 ng/mL (< 0.028)
--- NOTE | 2020-09-08 06:09 | PDOC.FM ---
- Subjective Subjective: Pt awake and oriented x3 this morning. Complaining of 5/10 abdominal pain. Says the morphine is not helping. He sees Dr Roa for pain management and Dr Castillo for oncology. Says he was able to tolerate diet last night. - Objective Vital Signs & Weight: Vital Signs (12 hours) Temp Pulse Resp BP BP Pulse Ox 09/08/20 01:35 CDT 100 09/08/20 00:00 98 F 107 H 20 119/57 L 95 09/07/20 19:35 98.8 F 97 18 132/63 100 Weight Weight 61.598 kg I&O: 09/06/20 09/07/20 09/08/20 06:59 06:59 05:59 Intake Total 2120 Output Total 1100 Balance 1020 Result Diagrams: 09/08/20 02:08 09/07/20 14:36 Phys Exam - Physical Examination Constitutional: NAD HEENT: moist MMs, sclera anicteric Neck: supple, full ROM Respiratory: no wheezing, clear to auscultation bilateral Cardiovascular: RRR, no significant murmur Gastrointestinal: soft, non-tender, no distention Musculoskeletal: no edema, pulses present Neurological: non-focal, moves all 4 limbs Psychiatric: normal affect, A&O x 3 Skin: no rash, cap refill <2 seconds Dx/Plan - Plan Plan: Encephalopathy Likely 2/2 Brain Mets from Small Cell Lung Cancer vs. Infectious etoliogy vs polypharmacy -Brain MRI 07/17/2020 showed multiple supra- and infrantentorial brain mets -oncologist, Dr. Castillo: last chemo Wednesday09/04/2020 - consult oncology: appreciate recs - txt: Decadron due to brain mets - CM, palliative care, PT/OT consulted - continue to monitor vitals, am labs - will make sure we have all home pain meds reconciled - pending Brain MRI SIRS, unknown etiology - Met criteria with WBC 22 on admission, tachycardia - Abx: empiric txt w/ vancomycin and cefepime - pending BCx, UCx. procal 0.07 - EKG and Troponin ordered d/t tachycardia - IVF LR@125ml/hr, can stop if tolerating po Cachexia - likely 2/2 lung cancer with mets to brain/pancreas - consulted orthopedic physical therapist, CM, Palliative Care Hx Duodenal Ulcers - added pepcid for GI ppx IVF: LR @125ml/hr Diet: Regular Code: DNAR, per mother at bedside patient has no / or children, she is next of kin, states that patient would not like resuscitation measures, will discuss with patient when mentation improved PCP: none Dispo: admit to onc, inpatient, consulted oncology, appreciate recs, pending SIRS work up and brain MRI. LOS >48hrs . Addendum - Attending - Attending Attestation Date/Time: 09/08/20 0750 I personally evaluated the patient and discussed the management with Dr. Joshua. I agree with the History, Examination, Assessment and Plan documented above with any addition or exceptions noted below. Mentation somewhat improved this morning. Concern that encephalopathy is from worsening brain mets or infectious cause. He has received Decadron, will discuss with Oncology and potentially order MRI to confirm. Continue broad spectrum abx and await cx.
[2020-09-08] MEDS: Morphine IR Tab 15 MG TAB PO SCH ×3 (07:57→21:02)
[2020-09-08] MEDS: Famotidine 20 MG TAB PO SCH ×2 (07:58→21:02)
[2020-09-08] MEDS: METHadone HCl 10 MG TAB PO SCH ×3 (07:58→21:03)
[2020-09-08] MEDS: Cefepime 2 GM in Sodium Chloride 0.9% 100 ML IVPB SCH ×3 (07:59→23:57)
[2020-09-08] MEDS: Enoxaparin Sodium 40 MG/0.4 ML SYRINGE SC SCH (07:59)
[2020-09-08] MEDS ORDERED: Prevnar 13-Val Conj/PF 0.5 ML SYRINGE IM ONE (09:00)
[2020-09-08] MEDS ORDERED: FLU VACC QS2020-21(6MOS UP)/PF 60 MCG/0.5 ML SYRINGE IM ONE (09:00)
--- NOTE | 2020-09-08 12:09 | MRI ---
MRI of thebrain with and without contrast: 09/08/2020 COMPARISON: 07/28/2020 HISTORY:Lung cancer, evaluate for metastatic disease, encephalopathy TECHNIQUE: Multiplanar multisequence MR imaging of thebrain provided with and without contrast Findings:The diffusion weighted imaging demonstrates a small focus of increased signal intensity with in the posterior medial aspect of the right frontal lobe near the vertex measuring 7 mm. This does not appear restricted on the ADC map and thus likely represents an area of T2 shine through. No evide nce for acute infarction is noted. There is a focus of blooming artifact within the lateral aspect of the left parieto-occipital region, measuring 7 mm, suggesting an area of subcentimeter calcification or hemorrhage. This is not evident on CT performed 09/07/2020 and thus, likely represents a tiny focus of hemorrhage associated with metastatic disease. The gradient echo imaging appears grossly unremarkable otherwise. This tiny focus of blooming artifact does not lead to mass effect or midline shift. The axial FLAIR imaging demonstrates numerous foci of increased T2 and FLAIR signal within the perive ntricular, deep, and subcortical white matter. The prior examination performed 07/17/2020 demonstrated numerous intra-axial foci of enhancement consis tent with metastatic disease. On today's examination, there is no discrete abnormal enhancement involving the brainstem. No discrete abnormal enhancement is seen involving the cerebellum. Multiple subcentimeter foci of enhancement noted on the prior examination within the cerebellum are not visualized on this exam. Prior examination demonstrated multiple supratentorial lesions, many of whic h are nonvisualized on this exam. On today's exam there is a small focus of enhancement within the posterior right occipital lobe measuring 5 mm, previously measuring 9 mm. A very subtle vague enhanci ng lesion is suspected within the occipital lobe posteriorly on the right measuring in the 4 mm range, previously measuring 1.2 cm. No new enhancing lesions are seen within the brain parenchyma. Pr ior exam demonstrated a medial anterior left temporal lobe lesion which today measures in the 7 mm range, previously measuring 1.4 cm. A degree of underestimation of the intra-axial lesions cannot be excluded secondary to slight motion artifact. Arterial flow voids at the axial level of the skull base appear unremarkable on the T2-weighted imagi ng. Imaged paranasal sinuses and mastoid air cells are well-aerated. Axial T2 imaging is limited by motion artifact. IMPRESSION:Evidence of intracranial metastatic disease, demonstrating significant improvement when co mpared to the 07/17/2020 exam. No evidence for acute infarction. Please see above discussion.
[2020-09-08] MEDS ORDERED: Magnevist 469MG/ML 20 ML VIAL ONE (15:47)
--- NOTE | 2020-09-08 16:56 | CON ---
DATE OF CONSULTATION: REASON FOR CONSULT: Lung cancer. HISTORY OF PRESENT ILLNESS: Mr. uNnez is a 60-year-old gentleman, who has extensive stage small cell lung cancer. He has a right lung primary with extensive hilar mediastinal lymphadenopathy. He had metastasis to his bilateral adrenals, pancreas and brain. He had an extensive tumor burden and was asymptomatic from his brain metastasis, so he started chemotherapy. He received cycle 3 of carbo, etoposide and Tecentriq on Wednesday, 09/02. He receive Neulasta on , 09/05. He underwent a restaging CT of the chest, abdomen, and pelvis on September 04, which showed dramatic improvement in the lymphadenopathy, resolution of the pancreatic mass and resolution of the adrenal masses. He presented to the emergency room last night after an episode of trembling and confusion. He had a brain CT that showed no evidence of hemorrhage and then underwent a brain MRI today which showed improvement in intracranial metastatic disease. The patient is alert and oriented this time and has no complaints. He was seen with his mother at bedside. PAST MEDICAL HISTORY: 1. Extensive stage small cell lung cancer. 2. Tobacco use. 3. Anxiety. PAST SURGICAL HISTORY: 1. Hip replacement. 2. Hernia repair. 3. Back surgery. 4. Neck fusion. ALLERGIES: NO KNOWN DRUG ALLERGIES. HOME MEDICATIONS: 1. Remeron. 2. Methadone. 3. Zofran. 4. Compazine. FAMILY HISTORY: Noncontributory. SOCIAL HISTORY: , has no children. Lives with his mom. 35 pack-year history of smoking. No alcohol or illicit drug use. REVIEW OF SYSTEMS: Positive for joint and back pain, weight loss. Otherwise, 10-point review of systems is negative. PHYSICAL EXAMINATION: VITAL SIGNS: Temperature 97.8, pulse is 99, respiratory rate 18, BP is 126/60, he is 100% on room air. GENERAL: This is a thin male, in no acute distress. HEENT: Normocephalic, atraumatic. Pupils are equal and reactive to light. NECK: Supple. CV: He has a regular rate and rhythm. LUNGS: Clear. ABDOMEN: Soft and nontender. Bowel sounds are positive throughout. EXTREMITIES: No clubbing or cyanosis. SKIN: No rash. HEMATOLOGIC: No petechiae or purpura. NEUROLOGIC: Nonfocal. PERTINENT LABORATORY DATA AND X-RAYS: Current WBCs 39.8, hemoglobin 9.1, hematocrit 28.1, platelet count is 614,000. He has 87% neutrophils, 10% bands, 2% lymphocytes. Sodium 138, potassium 4.0, chloride 107, CO2 is 21, BUN is 21, creatinine 0.63. Lactic acid is 2. Calcium 7.8. Bilirubin 0.3, AST is 30, ALT is 15, alkaline phosphatase is 134. Ammonia 33. Troponin 0.073. Serum total protein 6.1, albumin 2.9, globulin 3.2. Urine is negative. Syphilis, hepatitis and HIV negative. RADIOLOGY: Per HPI. ASSESSMENT: 1. Extensive stage small cell lung cancer. 2. Leukocytosis from Neupogen .. 3. Encephalopathy with tremors, unknown etiology. DISCUSSION: The patient has been started on empiric antibiotics and his mental status is at baseline. He has no fever. Recent scan show improvement in all his cancers including his brain metastasis. He has leukocytosis from Neulasta post last cycle. The patient has been started on steroids. Dose will be reduced in the morning. He can be discharged home to follow up with Dr. Castillo in the clinic as he appears to be back to baseline. Thank you for the consult. Job ID: [id number]
[2020-09-09 05:28] LABS: Hemoglobin 9.4 g/dL (14.0-18.0); Mean Corpuscular HGB CONC 32.8 g/dL (32.0-36.0); Mean Corpuscular Hemoglobin 30.5 pg (27.0-31.0); Mean Platelet Volume 6.1 fL (7.4-10.4); Platelet Count 554 thou/uL (130-400); RBC Distribution Width 16.3 % (11.5-14.5); Red Blood Cell (RBC) Count 3.08 mill/uL (4.70-6.10); White Blood Cell (WBC) Count 25.5 thou/uL (4.8-10.8)
[2020-09-09 05:29] LABS: Band 20 % (5-11); Lymphocytes 7 % (21-51); MDiff Complete? YES; Monocytes 1 % (0-10); Neutrophil 72 % (42-75); Platelet Morphology Comment Appears Increased
[2020-09-09 05:32] LABS: Vancomycin, Trough 10.7 ug/mL
[2020-09-09 05:35] LABS: Anion Gap 14 mmol/L (10-20); BUN (Urea Nitrogen) 18 mg/dL (8.4-25.7); Calc. Creatinine Clearance 101 mL/min (70-130); Calcium 8.7 mg/dL (7.8-10.44); Carbon Dioxide 23 mmol/L (23-31); Chloride 104 mmol/L (98-107); Estimated GFR-MDRD Greater than 90; Glucose 119 mg/dL (80-115); Sodium 137 mmol/L (136-145)
[2020-09-09] MEDS: Lactated Ringer's 1,000 ML IV SCH (05:47)
[2020-09-09] MEDS: Vancomycin HCl 1.25 GM in Sodium Chloride 0.9% 250 ML 250 ML IVPB SCH (05:55)
[2020-09-09] MEDS ORDERED: Vancomycin 1 GM in Premix Bag 1 BAG IVPB SCH (06:00)
--- NOTE | 2020-09-09 06:26 | PDOC.FM ---
- Subjective Subjective: Patient doing well today. Ready to go home. Tolerating PO, ambulating without difficulty. - Objective MAR Reviewed: Yes Vital Signs & Weight: Vital Signs (12 hours) Temp Pulse Resp BP Pulse Ox 09/08/20 19:44 97.8 F 87 12 127/58 L 100 Weight Weight 61.598 kg I&O: 09/07/20 09/08/20 09/09/20 07:59 06:59 06:59 Intake Total 4418 Output Total Balance 4418 Result Diagrams: 09/09/20 04:47 09/09/20 04:47 Phys Exam - Physical Examination Constitutional: NAD cachectic sitting up at the side of the bed HEENT: moist MMs Neck: supple, full ROM Respiratory: no wheezing, clear to auscultation bilateral Cardiovascular: RRR Gastrointestinal: soft Neurological: moves all 4 limbs Psychiatric: normal affect, A&O x 3 Skin: normal turgor Dx/Plan - Plan Plan: Encephalopathy Likely 2/2 Brain Mets from Small Cell Lung Cancer -Brain MRI 07/17/2020 showed multiple supra- and infrantentorial brain mets -Repeat brain MRI showed intracranial mets improved compared to 07/17/20 with resolution of pancreatic and adrenal mass -oncologist, Dr. Castillo: last chemo Wednesday09/04/2020 - consult oncology: appreciate recs - Decadron due to brain mets to help with inflammation, will follow up with oncology to see about outpatient regimen - CM, palliative care, PT/OT consulted - continue to monitor vitals, am labs - continue home pain meds SIRS, unknown etiology, resolved - Met criteria with WBC 22 on admission, tachycardia - likely 2/2 Neupogen but have to rule out infectious source especially since patient is undergoing chemo - Abx: empiric txt w/ vancomycin and cefepime, will d/c today - pending BCx, UCx. procal 0.07 - EKG and Troponin ordered d/t tachycardia - d/c IVF as patient is tolerating PO Cachexia - likely 2/2 lung cancer with mets to brain/pancreas - consulted tanner rotary drum continuous process, CM, Palliative Care Hx Duodenal Ulcers - added pepcid for GI ppx IVF: KVO Diet: Regular Code: DNAR, per mother at bedside patient has no / or children, she is next of kin, states that patient would not like resuscitation measures, will discuss with patient when mentation improved PCP: none Dispo: admit to onc, inpatient, consulted oncology, appreciate recs, pending SIRS work up and brain MRI. LOS >48hrs Addendum - Attending - Attending Attestation Date/Time: 09/09/20 [id number] I personally evaluated the patient and discussed the management with Dr. Mayo I agree with the History, Examination, Assessment and Plan documented above with any addition or exceptions noted below - Patient without complaints except for sensation of SOB when ambulating. Has had this for some time but feels it has worsened. Afebrile VSS. A/P: 1) Metastatic small cell lung cancer- follow-up with oncology as scheduled. 2) Leukocytosis- cultures negative x 48 hours; most likely due to neulasta 3) Anxiety - does not have PCP; appointment scheduled at [facility] for further evaluation of this and treatment. Will give low dose atarax for now.
[2020-09-09 07:15] VITALS: BP 138/76; TEMP 97.5
[2020-09-09] MEDS: Cefepime 2 GM in Sodium Chloride 0.9% 100 ML IVPB SCH (08:40)
[2020-09-09] MEDS: METHadone HCl 10 MG TAB PO SCH ×2 (08:40→15:42)
[2020-09-09] MEDS: Famotidine 20 MG TAB PO SCH (08:40)
[2020-09-09] MEDS: Morphine IR Tab 15 MG TAB PO SCH ×2 (08:41→15:42)
[2020-09-09] MEDS: Enoxaparin Sodium 40 MG/0.4 ML SYRINGE SC SCH (08:42)
[2020-09-09] MEDS ORDERED: Dexamethasone 10 MG/ML VIAL SLOW IVP SCH (09:00)
[2020-09-09 12:52] LABS: SARS-CoV-2 MS2 Positive; SARS-CoV-2 N Gene Negative; SARS-CoV-2 S Gene Negative; SARS-CoV-2 by NAA Not Detected (NotDetected); SARS-CoV-2 orf1ab Negative
--- NOTE | 2020-09-09 16:26 | PDOC.FMACP ---
Advance Care Planning - Problem (1) Palliative care encounter Status: Acute Code(s): Z51.5 - ENCOUNTER FOR PALLIATIVE CARE (2) Mass of right lung Status: Acute Code(s): R91.8 - OTHER NONSPECIFIC ABNORMAL FINDING OF LUNG FIELD (3) Small cell lung cancer Status: Acute Code(s): C34.90 - MALIGNANT NEOPLASM OF UNSP PART OF UNSP BRONCHUS OR LUNG (4) Chronic pain syndrome Status: Chronic Code(s): G89.4 - CHRONIC PAIN SYNDROME (5) Peripheral neuropathy Status: Chronic Code(s): G62.9 - POLYNEUROPATHY, UNSPECIFIED (6) Tobacco abuse Status: Chronic Code(s): Z72.0 - TOBACCO USE - Note Participants: patient, palliative care Summary: Palliative Care addressed Advanced Care Planning. The diagnosis, prognosis and goals of care were discussed. Appropriate forms and documentation to accomplish the goals of care were discussed. All questions were answered. Mr Enrique hathaway ected to complete a MPOA and Directive to Physician. Original and copy given to the patient, as well as copy for the chart to be scanned into medical records. Please also refer to Palliative Care notes in note section. Physicians notified. Time Spent (mins): 15
--- NOTE | 2020-09-11 18:33 | PQF ---
Dear : Jenn Harry Date 09/11/20 Please exercise your independent, professional judgment in responding to the clarification form. Clinical indicators are provided on the bottom of this form for your review Can you please further clarify the specify etiology of Encephalopathy? Please check appropriate box(es): Encephalopathy: Etiology: [ ] Hypertensive [ ] Metabolic [ ] Toxic [ ] Drug induced: [ ] Unspecified [ ] Other (please specify) [ ] Other diagnosis [ ] Unable to determine Physician Signature: Date/Time: For continuity of documentation, please document condition throughout progress notes and discharge summary. Thank You. To be completed by CDI/Coding staff for physician review: Present Clinical Indicators - Signs / Symptoms / Labs Results and Location in Medical Record [ x ] AMS H and P pg.1 [ x ] Encephalopathy likely 2/2 brain from pancreatic cancer vs infectious etiology vs polypharmacy H and P pg.4 [ x ] Suspect medication as possible caused of encephalopathy H and P pg.5 [ x ] USD positive for benzo, opiates H and P pg.5 [ x ] Patient with new encephalopathy in setting of known pancreatic CA with mets to sussy H and P pg.6 [ x ] Encephalopathy with tremors, unknown etiology Consult pg.2 [ x ] Brain mets as likely cause of AMS H and P pg.4 Present Risk Factors Results and Location in Medical Record [ x ] 60 years old H and P pg.1 [ x ] Pancreatic cancer H and P pg.1 [ x ] SIRS H and P pg.4 [ x ] Lung cancer Consult pg.1 [ x ] Tobacco use Consult pg.1 [ x ] Brain Cancer H and P pg.6 Present Treatments Results and Location in Medical Record [ x ] CT Brain 09/07 CT Brain 09/07 [ x ] Brain MRI 09/08 Brain MRI 09/08 [ x ] IV Fluids MAR [ x ] Oncology Consult Dr. Shell 09/08 [ x ] Vancomycin 1.5gm IV MAR [ x ] Cefepime 2gm IV MAR [ x ] Decadron 4mg IV 09/07 CDS/Brand Marketing Manager Signature: AaliyahVictor Hugo kenneyard Feleciaisidoro Phone #: [phone] Date 09/11/20 This is a permanent part of the Medical Record [facility]
--- NOTE | 2020-09-11 19:32 | EKG ---
Test Reason : Blood Pressure : / mmHG Vent. Rate : 098 BPM Atrial Rate : 098 BPM P-R Int : 142 ms QRS Dur : 094 ms QT Int : 350 ms P-R-T Axes : 071 029 070 degrees QTc Int : 446 ms Normal sinus rhythm Incomplete right bundle branch block Borderline ECG When compared with ECG of 07-SEP-2020 14:25, (Unconfirmed) Premature atrial complexes are no longer Present Confirmed by DEANNA CINTRON, SCornelio ([id number]) on 09/11/2020 7:31:56 PM Referred By: MILTON Confirmed By:DR. Kriss HUERTA MD
--- NOTE | 2020-09-12 12:05 | DIS ---
DATE OF ADMISSION: 09/07/2020 DATE OF DISCHARGE: 09/09/2020 RESIDENT: Enedina Mayo MD, PGY-1 ADMITTING ATTENDING: Dr. Asad Parmar. DISCHARGE ATTENDING: Dr. Jenn Harry. CONSULTS: 1. Oncology. 2. Case Management. 3. Dietitian. 4. OT. 5. Palliative Care. PROCEDURES: Chest x-ray showed no evidence for any acute cardiopulmonary process. Brain CT, which showed no evidence for intracranial hemorrhage or mass effect. Metastatic disease is not apparent by noncontrast CT. Brain MRI, which showed evidence of intracranial metastatic disease demonstrating significant improvement when compared to 07/17/2020 exam. No evidence for acute infarction. PRIMARY DIAGNOSIS: Encephalopathy secondary to brain metastasis from small-cell lung cancer. SECONDARY DIAGNOSES: 1. Systemic inflammatory response syndrome. 2. Cachexia. 3. Duodenal ulcers. DISCHARGE MEDICATIONS: 1. Atarax 12.5 mg t.i.d. p.r.n. 2. Gabapentin 300 mg p.o. t.i.d. 3. Tizanidine 4 mg p.o. t.i.d. 4. Morphine 15 mg p.o. q.4 hours p.r.n. for breakthrough pain. 5. Benadryl 25 mg p.o. q.3 hours as needed for itching. 6. Melatonin 3 mg p.o. at bedtime p.r.n. for insomnia. 7. Methadone 10 mg p.o. t.i.d. 8. Naloxegol Oxalate 12.5 mg p.o.daily. 9. Prochlorperazine maleate 10 mg p.o. q.8 hours as needed for nausea. 10. Morphine sulfate 15 mg p.o. t.i.d. for pain. 11. Zofran 4 mg daily as needed for nausea. DISCONTINUED MEDICATIONS: None. HISTORY OF PRESENT ILLNESS/HOSPITAL COURSE: The patient is a 60-year-old male with a past medical history significant for metastatic small-cell lung cancer, who presented to the ER with altered mental status. He is receiving chemotherapy for his metastatic cancer. The patient's mom was present on admission and gave story as the patient was unable to cooperate, says that the patient has been very agitated throughout the day and his mood seemed to have changed to be angry. The patient reports no tremor, shaking of arms and legs. Says that he was "normal" yesterday and did not endorse any trauma, nausea, vomiting, diarrhea, chest pain, shortness of breath, palpitations. There was associated generalized weakness. The patient followed up with Dr. Castillo for his cancer and denies any fever or sick contacts. During his hospital stay imaging was performed. See above for details. It seemed as if his metastatic disease has improved since previous imaging in July. The patient was started on Decadron because of his brain metastasis to help with inflammation but discontinued on discharge. The patient originally met SIRS criteria on admission with white blood cell count 22 and tachycardia and was started on vanc and cefepime, but blood cultures and urine cultures came back negative along with negative pro-prisca, so empiric antibiotics were discontinued at that time. The patient remains stable throughout stay and is essentially just awaiting culture results. DISPOSITION: Stable. DISCHARGE INSTRUCTIONS: 1. Location: Home. 2. Diet: No restrictions. 3. Activity: Activity as tolerated. 4. Followup: Follow up with Dr. Knowles at [facility] on 09/10/2020 at 2:00 p.m. and follow up with Dr. Castillo in 7 days. Job ID: [id number] [facility]
--- NOTE | 2020-09-14 14:36 | EKG ---
Test Reason : Blood Pressure : / mmHG Vent. Rate : 114 BPM Atrial Rate : 114 BPM P-R Int : 120 ms QRS Dur : 094 ms QT Int : 326 ms P-R-T Axes : 071 047 049 degrees QTc Int : 449 ms Sinus tachycardia with Premature atrial complexes Possible Left atrial enlargement Incomplete right bundle branch block Borderline ECG Confirmed by ELENA BARRETT M.D. ([id number]), assignment desk editor NUPUR FELIX ([id number]) on 09/14/2020 2:36:02 PM Referred By: Confirmed By:ELENA BARRETT M.D.
== END 2020-09-09 16:05 | disposition home or self-care (01) | DRG 55 ==
LOC: ERS 14:15 → INTOOBSV 18:27 → OBSVTOIN 18:27 → ONC 18:27
PROVIDERS: ADMIT Student in an Organized Health Care Education/Training Program; ATTEND Student in an Organized Health Care Education/Training Program
DX: C79.31 Secondary malignant neoplasm of brain (principal); R64 Cachexia; Z68.1 Body mass index [BMI] 19.9 or less, adult; R65.10 Systemic inflammatory response syndrome (SIRS) of non-infectious origin without acute organ dysfunction; C34.92 Malignant neoplasm of unspecified part of left bronchus or lung; C78.89 Secondary malignant neoplasm of other digestive organs; C78.1 Secondary malignant neoplasm of mediastinum; G93.40 Encephalopathy, unspecified; Z20.828 Contact with and (suspected) exposure to other viral communicable diseases; Z51.5 Encounter for palliative care; F41.9 Anxiety disorder, unspecified; Z96.642 Presence of left artificial hip joint; Z96.653 Presence of artificial knee joint, bilateral; G89.4 Chronic pain syndrome; G62.9 Polyneuropathy, unspecified; Z23 Encounter for immunization; Z79.899 Other long term (current) drug therapy; Z72.0 Tobacco use
CPT/HCPCS: 36415; 70450; 70553; 71045; 71260; 74177; 80048; 80053; 80202; 80306; 80307; 81003; 82140; 82553; 83605; 84134; 84145; 84146; 84484; 85025; 86780; 86803; 87040; 87086; 87389; 87635; 90471; 90662; 90670; 93005; 93010; 96365; 96366; 96367; 96372; 96375; 96376; A9579; G0008; G0009; G0378; J0692; J1100; J1200; J1650; J2060; J2270; J3370; J3490; J7050; U0003

== ENCOUNTER 2021-01-13 10:36 | Outpatient (CLI) | payer MEDICARE ==
[2021-01-13] MEDS ORDERED: Iopamidol-370 76% 500 ML 1 ML ONE (11:06)
== END 2021-01-13 10:37 | disposition home or self-care (01) ==
LOC: BICCT 10:36
PROVIDERS: ATTEND Internal Medicine Hematology & Oncology
DX: C34.11 Malignant neoplasm of upper lobe, right bronchus or lung (principal); C77.1 Secondary and unspecified malignant neoplasm of intrathoracic lymph nodes; C79.71 Secondary malignant neoplasm of right adrenal gland; C79.72 Secondary malignant neoplasm of left adrenal gland; M84.459A Pathological fracture, hip, unspecified, initial encounter for fracture; C79.51 Secondary malignant neoplasm of bone; R91.1 Solitary pulmonary nodule
CPT/HCPCS: 71260; 74177

== ENCOUNTER 2021-01-13 11:26 | Inpatient (IN) | payer MEDICARE ==
[2021-01-13 12:14] LABS: #Eosinphils 0.1 thou/uL (0.0-0.7); #Lymphocytes 1.9 thou/uL (1.20-3.40); #Monocytes 0.6 thou/uL (0.11-0.59); #Neutrophils 5.3 thou/uL (1.40-6.50); %Basophils 0.3 % (0.0-1.0); %Eosinophils 1.7 % (0.0-10.0); %Lymphocytes 24.4 % (21.0-51.0); %Monocytes 7.5 % (0.0-10.0); %Neutrophils 66.1 % (42.0-75.0); Hemoglobin 13.6 g/dL (14.0-18.0); Mean Corpuscular HGB CONC 33.3 g/dL (32.0-36.0); Mean Corpuscular Hemoglobin 31.6 pg (27.0-31.0); Mean Corpuscular Volume 95.1 fL (78.0-98.0); Platelet Count 245 thou/uL (130-400); RBC Distribution Width 13.4 % (11.5-14.5); Red Blood Cell (RBC) Count 4.31 mill/uL (4.70-6.10)
[2021-01-13] MEDS ORDERED: Haloperidol Lactate 5 MG/ML VIAL ONE ×2 (12:31→13:36)
[2021-01-13 12:39] LABS: ALT (SGPT) 18 U/L (8-55); AST (SGOT) 33 U/L (5-34); Albumin 3.9 g/dL (3.4-4.8); Alkaline Phosphatase 83 U/L (40-110); Anion Gap 14 mmol/L (10-20); BUN (Urea Nitrogen) 16 mg/dL (8.4-25.7); Bilirubin, Total 0.4 mg/dL (0.2-1.2); Calc. Creatinine Clearance 0 mL/min (70-130); Calcium 9.1 mg/dL (7.8-10.44); Carbon Dioxide 27 mmol/L (23-31); Chloride 100 mmol/L (98-107); Globulin 3.3 g/dL (2.4-3.5); Glucose 116 mg/dL (80-115); Potassium 3.7 mmol/L (3.5-5.1); Protein, Total 7.2 g/dL (5.8-8.1); Sodium 137 mmol/L (136-145)
[2021-01-13] MEDS ORDERED: Lorazepam 1 MG TAB ONE (13:02)
[2021-01-13] MEDS ORDERED: Lorazepam 2 MG/ML VIAL ONE (13:03)
[2021-01-13] MEDS ORDERED: diphenhydrAMINE 50 MG/ML VIAL ONE (13:44)
[2021-01-13] MEDS ORDERED: Succinylcholine 200 MG/10 ml SYRINGE FS ONE (13:56)
[2021-01-13] MEDS ORDERED: Fentanyl 100 MCG/2 ML VIAL ONE ×2 (14:10→14:35)
[2021-01-13] MEDS ORDERED: Propofol 1,000 MG/100 ML VIAL IV ONE (14:18)
[2021-01-13] MEDS ORDERED: fentaNYL Citrate/PF 2,000 MCG in Sodium Chloride 0.9% 60 ML IV SCH (14:30)
[2021-01-13 14:54] LABS: Actual Bicarbonate (HCO3a) 20.4 mEq/L (22-28); Analyzer IN Cardio ER; Base Excess (BEa) -2.6 mEq/L (-2.0 to +3.0); CO2 Tension 30.6 mmHg (35.0-45.0); Calcium, Ionized (arterial) 1.12 mmol/L (1.12-1.30); Hemoglobin (Hb) 13.5 g/dL (14.0-18.0); O2 Tension (PaO2), arterial 246.6 mmHg (> 80.0); Potassium - ABG Lab 3.41 mmol/L (3.70-5.30); pH, Arterial 7.44 (7.35-7.45)
[2021-01-13 14:56] LABS: Puncture Site RRA
[2021-01-13 15:26] LABS: Bilirubin Negative (Negative); Blood, Urine Trace (Negative); Glucose, Urine (Dipstick) Negative (Negative); Ketone, Urine Trace mg/dL (Negative); Leukocyte Negative (Negative); Nitrite Negative (Negative); Protein, Urine (Dipstick) Trace mg/dL (Neg-Trace); Specific Gravity, Urine 1.025 (1.005-1.030); Urobilinogen 0.2 mg/dL (Less than 2); pH, Urine 5.5 (5.0-9.0)
[2021-01-13] MEDS ORDERED: Cefepime 2 GM VIAL ONE (15:27)
[2021-01-13 15:28] LABS: Bacteria/HPF None Seen HPF (None Seen); Clarity Hazy (Clear); RBC/HPF 0-3 HPF (0-3); Squamous Epithelial None Seen HPF (0-3); WBC/HPF None Seen HPF (0-3)
[2021-01-13 15:29] LABS: SARS-CoV-2 NAA Rapid Test Not Detected (NotDetected)
[2021-01-13] MEDS ORDERED: Electrolyte Replacement Protocol 1 EACH FS ONE (15:39)
[2021-01-13] MEDS ORDERED: Ventilator Sedation Protocol 1 EACH FS SCH (15:39)
[2021-01-13] MEDS ORDERED: DISCONTINUE PREVIOUS NARCOTIC PAIN MEDICATIONS AND BENZODIAZEPINES FS SCH (16:30)
[2021-01-13] MEDS ORDERED: Fentanyl CADD 100 ML IV SCH (16:30)
[2021-01-13] MEDS ORDERED: Propofol BOLUS 1,000 MG/100 ML VIAL IV PRN (16:30)
[2021-01-13] MEDS ORDERED: Fentanyl BOLUS 250 ML IVPB PRN (16:30)
[2021-01-13] MEDS ORDERED: Morphine 2 MG/ML VIAL SLOW IVP PRN (16:30)
[2021-01-13] MEDS ORDERED: Lorazepam 2 MG/ML VIAL SLOW IVP PRN (16:30)
[2021-01-13] MEDS ORDERED: Electrolyte Replacement Protocol FS PRN (16:30)
[2021-01-13 17:18] VITALS: BMI 20.7
[2021-01-13] MEDS: Sodium Chloride 0.9% 1,000 ML IV SCH ×2 (17:34→23:31)
[2021-01-13] MEDS: Thiamine HCl 200 MG/2 ML VIAL SLOW IVP SCH (17:35)
[2021-01-13] MEDS: Propofol 1,000 MG/100 ML VIAL IV PRN ×2 (17:56→23:31)
[2021-01-13 18:09] LABS: Lactic Acid 2.9 mmol/L (0.5-2.2)
[2021-01-14 06:39] LABS: Calcium 8.5 mg/dL (7.8-10.44); Chloride 106 mmol/L (98-107); Potassium 3.6 mmol/L (3.5-5.1); Sodium 139 mmol/L (136-145)
[2021-01-14 06:40] LABS: Glucose 72 mg/dL (80-115)
[2021-01-14 06:42] LABS: Anion Gap 15 mmol/L (10-20); Carbon Dioxide 22 mmol/L (23-31)
[2021-01-14 06:43] LABS: Calc. Creatinine Clearance 84 mL/min (70-130)
[2021-01-14 06:44] LABS: BUN (Urea Nitrogen) 14 mg/dL (8.4-25.7)
[2021-01-14] MEDS: Propofol 1,000 MG/100 ML VIAL IV PRN (07:47)
[2021-01-14 07:48] LABS: Hemoglobin 12.5 g/dL (14.0-18.0); Mean Corpuscular HGB CONC 32.2 g/dL (32.0-36.0); Mean Corpuscular Hemoglobin 30.7 pg (27.0-31.0); Mean Corpuscular Volume 95.6 fL (78.0-98.0); Mean Platelet Volume 7.1 fL (7.4-10.4); Platelet Count 188 thou/uL (130-400); RBC Distribution Width 13.5 % (11.5-14.5); Red Blood Cell (RBC) Count 4.06 mill/uL (4.70-6.10)
[2021-01-14 07:59] LABS: #Basophils 0.1 thou/uL (0.0-0.2); #Eosinphils 0.2 thou/uL (0.0-0.7); #Lymphocytes 3.3 thou/uL (1.20-3.40); #Monocytes 1.8 thou/uL (0.11-0.59); #Neutrophils 7.6 thou/uL (1.40-6.50); %Basophils 0.5 % (0.0-1.0); %Eosinophils 1.8 % (0.0-10.0); %Neutrophils 58.7 % (42.0-75.0); Band 2 % (5-11); Eosinophils 4 % (0-10); Lymphocytes 22 % (21-51); MDiff Complete? YES; Monocytes 12 % (0-10); Neutrophil 59 % (42-75); RBC Morphology Normal; Reactive Lymphocytes 1 % (0-10)
[2021-01-14 08:02] VITALS: BP 124/64
[2021-01-14 08:24] LABS: Actual Bicarbonate (HCO3a) 25.2 mEq/L (22-28); Analyzer IN Cardio ER; Base Excess (BEa) 0.5 mEq/L (-2.0 to +3.0); CO2 Tension 40.9 mmHg (35.0-45.0); Calcium, Ionized (arterial) 1.15 mmol/L (1.12-1.30); Carboxyhemoglobin (COHb) 0.3 gm% (0.0-3.0); Hemoglobin (Hb) 13.2 g/dL (14.0-18.0); O2 Tension (PaO2), arterial 144.1 mmHg (> 80.0); Potassium - ABG Lab 3.08 mmol/L (3.70-5.30); pH, Arterial 7.41 (7.35-7.45)
[2021-01-14 08:26] LABS: ALV-art Gradient 89.975 mmHg (0-20); Puncture Site LRA
[2021-01-14] MEDS: Sodium Chloride 0.9% 1,000 ML IV SCH ×2 (09:15→18:42)
[2021-01-14] MEDS: Pantoprazole 40 MG VIAL IVP SCH (09:24)
[2021-01-14] MEDS: Morphine 2 MG/ML VIAL SLOW IVP PRN ×2 (12:28→17:06)
[2021-01-14] MEDS ORDERED: fentaNYL 50 mcg/hour Patch TD SCH (12:45)
[2021-01-14] MEDS: Lorazepam 2 MG/ML VIAL SLOW IVP PRN ×2 (13:07→17:07)
[2021-01-14] MEDS: Thiamine HCl 200 MG/2 ML VIAL SLOW IVP SCH (17:07)
[2021-01-14] MEDS: levETIRAcetam in NS 1,000 MG in Premix Bag 1 BAG IVPB SCH (19:30)
[2021-01-15] MEDS: levETIRAcetam in NS 1,000 MG in Premix Bag 1 BAG IVPB SCH (08:25)
[2021-01-15] MEDS: Pantoprazole 40 MG VIAL IVP SCH (08:26)
[2021-01-15] MEDS: Sodium Chloride 0.9% 1,000 ML IV SCH (09:25)
[2021-01-15] MEDS: Lorazepam 2 MG/ML VIAL SLOW IVP PRN (16:52)
[2021-01-15] MEDS: Thiamine HCl 200 MG/2 ML VIAL SLOW IVP SCH (16:52)
[2021-01-15 17:13] VITALS: TEMP 97.7
== END 2021-01-15 17:05 | disposition hospice, home (50) | DRG 54 ==
LOC: ERS 11:26 → CCU 14:32
PROVIDERS: ADMIT Internal Medicine; ATTEND Internal Medicine
PROC: 0BH17EZ Insertion of Endotracheal Airway into Trachea, Via Natural or Artificial Opening (ICD-10-PCS; principal; 2021-01-13)
PROC: 5A1935Z Respiratory Ventilation, Less than 24 Consecutive Hours (ICD-10-PCS; 2021-01-13)
PROC: 0D9670Z Drainage of Stomach with Drainage Device, Via Natural or Artificial Opening (ICD-10-PCS; 2021-01-13)
DX: C79.31 Secondary malignant neoplasm of brain (principal); J96.00 Acute respiratory failure, unspecified whether with hypoxia or hypercapnia; C34.90 Malignant neoplasm of unspecified part of unspecified bronchus or lung; C78.89 Secondary malignant neoplasm of other digestive organs; F05 Delirium due to known physiological condition; G93.40 Encephalopathy, unspecified; C79.70 Secondary malignant neoplasm of unspecified adrenal gland; R64 Cachexia; Z66 Do not resuscitate; Z51.5 Encounter for palliative care; Z20.822 Contact with and (suspected) exposure to COVID-19; Z96.642 Presence of left artificial hip joint; F17.210 Nicotine dependence, cigarettes, uncomplicated; F41.9 Anxiety disorder, unspecified; K27.9 Peptic ulcer, site unspecified, unspecified as acute or chronic, without hemorrhage or perforation; G62.9 Polyneuropathy, unspecified; I48.91 Unspecified atrial fibrillation; Z98.1 Arthrodesis status; Z78.1 Physical restraint status; Z68.20 Body mass index [BMI] 20.0-20.9, adult
CPT/HCPCS: 0240U; 31500; 36415; 36600; 51702; 70450; 71045; 71260; 74018; 74177; 80048; 80053; 81003; 82140; 82550; 82805; 83605; 85025; 87040; 87086; 93005; 94002; 94003; 94760; 96361; 96365; 96366; 96375; 96376; 99292; C9113; J0692; J1200; J1630; J1953; J2060; J2270; J2704; J3010; J3411; J3490; Q9967